=== PATIENT | female | born 1940 | race American Indian/Alaskan Native ===

== ENCOUNTER 2018-08-21 10:17 | Outpatient (CLI) | payer MEDICARE, OTHER ==
[2018-08-21 11:01] LABS: Hematocrit 41.6 % (30.3-42.9); Hemoglobin 13.7 gm/dl (10.1-14.3); Mean Corpuscular HGB Conc 33 % (30-34); Mean Corpuscular Volume 93 fl (79-97); Platelet Count 130 K/mm3 (140-440); Red Blood Count 4.48 M/mm3 (3.65-5.03)
[2018-08-21 11:24] LABS: Albumin 4.1 g/dL (3.9-5); Calcium 9.5 mg/dL (8.4-10.2)
[2018-08-21 12:22] LABS: Eosinophils % (Manual) 0 % (0.0-4.3); Total Cells Counted 100
[2018-08-21 12:23] LABS: Anisocytosis 1+; Poikilocytosis 1+
[2018-08-21 12:24] LABS: Ovalocytes Few; Platelet Estimate Consistent w Auto; Tear Drop Cells Rare
[2018-08-21 12:54] LABS: Creatinine,Urine 421.3 mg/dL (0.1-20.0); Protein/Creatinine Ratio,Urine 0.08
== END 2018-08-21 10:18 | disposition home or self-care (01) ==
LOC: LAB 10:17
PROVIDERS: ATTEND Internal Medicine
DX: E78.5 Hyperlipidemia, unspecified (principal); E03.9 Hypothyroidism, unspecified; I10 Essential (primary) hypertension; Z94.0 Kidney transplant status
CPT/HCPCS: 36415; 80053; 80197; 82570; 84156; 85007; 85025

== ENCOUNTER 2018-09-23 12:05 | Outpatient (CLI) | payer MEDICARE ==
[2018-09-23 12:46] LABS: Basophils % (Auto) 0.5 % (0.0-1.8); Eosinophils % (Auto) 0.8 % (0.0-4.3); Hematocrit 39.8 % (30.3-42.9); Lymphocytes # (Auto) 0.9 K/mm3 (1.2-5.4); Lymphocytes % (Auto) 23.3 % (13.4-35.0); Mean Corpuscular HGB Conc 33 % (30-34); Mean Corpuscular Volume 93 fl (79-97); Monocytes # (Auto) 0.6 K/mm3 (0.0-0.8); Monocytes % (Auto) 15.3 % (0.0-7.3); Platelet Count 153 K/mm3 (140-440); Red Blood Count 4.28 M/mm3 (3.65-5.03); Red Cell Distribution Width 15.3 % (13.2-15.2)
[2018-09-23 13:03] LABS: Protein/Creatinine Ratio,Urine 0.14
[2018-09-23 13:04] LABS: Albumin 3.8 g/dL (3.9-5); Calcium 9.8 mg/dL (8.4-10.2)
== END 2018-09-23 12:06 | disposition home or self-care (01) ==
LOC: LAB 12:05
PROVIDERS: ATTEND Internal Medicine
DX: E03.9 Hypothyroidism, unspecified (principal); E78.5 Hyperlipidemia, unspecified; I10 Essential (primary) hypertension; Z94.0 Kidney transplant status
CPT/HCPCS: 36415; 80053; 82570; 84156; 85025

== ENCOUNTER 2018-12-11 12:02 | Outpatient (CLI) | payer MEDICARE, OTHER ==
--- NOTE | 2018-12-11 13:18 | XRay Report ---
LEFT RIBS HISTORY: Fall and left chest pain. COMPARISON: None. TECHNIQUE: 2 views of the left ribs were obtained. FINDINGS: Bones: Multiple displaced mid to lower left rib fractures with no callus. Joint spaces: Maintained. Soft tissues: No significant abnormality. Additional findings: The lungs are normally expanded. No pneumothorax. IMPRESSION: Multiple acute traumatic displaced mid to lower left rib fractures. No pneumothorax. Signer Name: Tino Ballard MD Signed: 12/11/2018 1:14 PM Workstation Name: [id number]
--- NOTE | 2018-12-11 13:26 | XRay Report ---
LEFT HIP HISTORY: Fall and left hip pain. COMPARISON: None. TECHNIQUE: 3 views of the left hip obtained. FINDINGS: Bones: No definite hip fracture or dislocation. Moderate osteopenia, overlying stool and skin folds limit the sensitivity for detecting and hip fractures. Joint spaces: Maintained. Soft tissues: No significant abnormality. IMPRESSION: Negative study. However, recommend CT pelvis there is clinical suspicion of fracture. Signer Name: Tino Ballard MD Signed: 12/11/2018 1:22 PM Workstation Name: [id number]
== END 2018-12-11 12:03 | disposition home or self-care (01) ==
LOC: XRAY 12:02
PROVIDERS: ATTEND Internal Medicine
DX: S22.32XA Fracture of one rib, left side, initial encounter for closed fracture (principal); M85.88 Other specified disorders of bone density and structure, other site; R29.6 Repeated falls; X58.XXXA Exposure to other specified factors, initial encounter; Y93.89 Activity, other specified; Y92.89 Other specified places as the place of occurrence of the external cause; Y99.8 Other external cause status

== ENCOUNTER 2018-12-12 13:34 | Emergency (ER) | payer MEDICARE ==
--- NOTE | 2018-12-12 15:35 | Emergency Department Report ---
<JOCE GILLETTE - Last Filed: 12/12/18 17:23> ED Fall HPI - General Chief Complaint: Medical Clearance Stated Complaint: BROKEN RIBS/PAIN Time Seen by Provider: 12/12/18 15:20 Source: patient, family Mode of arrival: Wheelchair - History of Present Illness Initial Comments: 78-year-old Afro[place] female past medical history of kidney transplant, currently under the care of Dr. Cali presents to emergency department for further evaluation of a fall injury which was sustained on Sunday. Sunday she had a trip and fall landing on her ribs, causing pain to the left hip and ribs. Her primary care provider, Dr. Cali did order some imaging studies on yesterday which showed a fractured rib and multiple sites and a normal left hip. Since the fall. She is having some ambulating difficulties and issues with getting up and down and the caregiver's report of a difficult. She is having an looking for assistance with rehabilitation. She reports no chest pain or hemoptysis, no shortness of breath, no presyncope, no nausea or vomiting. No diarrhea or constipation MD Complaint: fall -: Gradual Place Fall Occurred: home Loss of Consciousness: none Prolonged Down Time?: no Symptoms Prior to Fall: none Severity: mild, moderate Quality: dull, aching Context: tripped/slipped Associated Symptoms: denies: neck pain, numbness, weakness, abdominal pain, hematuria, lightheaded, vertigo, confusion - Related Data Previous Rx's Medication Instructions Recorded Last Taken Type HYDROcodone/APAP 5-325 [[place] 1 each PO Q6HR PRN #15 tablet 12/12/18 Unknown Rx 5/325] Allergies Allergy/AdvReac Type Severity Reaction Status Date / Time No Known Allergies Allergy Verified 12/12/18 16:34 ED Past Medical Hx - Past Medical History Previous Medical History?: No Additional medical history: kidney transplant - Social History Smoking Status: Never Smoker - Medications Home Medications: Home Medications Medication Instructions Recorded Confirmed Last Taken Type HYDROcodone/APAP 5-325 [[place] 1 each PO Q6HR PRN #15 tablet 12/12/18 Unknown Rx 5/325] ED Physical Exam - General Limitations: No Limitations ED Medical Decision Making - Lab Data Result diagrams: 12/12/18 16:04 12/12/18 16:04 - Radiology Data Radiology results: report reviewed Referring Physician: JOCE GILLETTE Patient Name: DAYAN ECKERT Date of : 1940 Sex: Female Report Date: 2018-12-12 Report Status: Finalized [facility] [address] [place] [address] Cat Scan Report Signed Patient: DAYAN ECKERT MR#: [id number] : 1940 Acct:[id number] Age/Sex: 78 / F ADM Date: 12/12/18 Loc: ED Attending Dr: Ordering Physician: RUSS MARTIN Date of Service: 12/12/18 Procedure(s): CT chest wo con Accession Number(s): [id number] cc: RUSS MARTIN CT CHEST WITHOUT CONTRAST INDICATION / CLINICAL INFORMATION: fall with rib fractures. rib pain. TECHNIQUE: Axial CT images were obtained through the chest without contrast. All CT scans at this location are performed using CT dose reduction for ALARA by means of automated exposure control. COMPARISON: Chest radiograph 12/12/2018, rib radiographs 12/11/2018 FINDINGS: HEART: Normal heart size. Small pericardial effusion. THORACIC AORTA: Ectatic and tortuous but without clear aneurysmal dilatation. MEDIASTINUM and JAZLYN: No significant abnormality. LUNGS: Probably chronic scarring is seen at both lung bases. A subcentimeter, probably calcified nodule is seen at the right lung base. Evaluation for small nodules is limited by respiratory motion artifact. No large area of parenchymal consolidation. No pulmonary mass. PLEURA: No pleural effusion. No pneumothorax. UPPER ABDOMEN: Unremarkable by noncontrast technique. SKELETAL SYSTEM: There are acute, mildly displaced fractures of the left fifth through eighth ribs anterolaterally and mildly displaced fractures of the left ninth and 10th ribs posteriorly. IMPRESSION: 1. Multiple left-sided rib fractures, as described. No associated pulmonary contusion. 2. Limited evaluation of the lung parenchyma due to respiratory motion artifact. There is chronic scarring at the lung bases. Signer Name: Rambo Garsia MD Signed: 12/12/2018 5:11 PM Workstation Name: [id number] Transcribed By: LETY Dictated By: Rambo Garsia MD Electronically Authenticated By: Rambo Garsia MD Signed Date/Time: 12/12/18 1711 ED Disposition Clinical Impression: Multiple rib fractures Disposition: DC-01 TO HOME OR SELFCARE Condition: Stable Instructions: Rib Fracture (ED) Additional Instructions: Take the medication as prescribed. Follow-up with your doctor or with the doctor/clinic provided. Return if symptoms worsen as indicated by your disch arge instructions. Prescriptions: HYDROcodone/APAP 5-325 [[place] 5/325] 1 each PO Q6HR PRN #15 tablet PRN Reason: Pain Referrals: PRERNA GIMENEZ MD [Primary Care Provider] - 3-5 Days your, primary care doctor [Other] - 3-5 Days <FAZAL CONTRERAS - Last Filed: 12/12/18 20:25> ED Review of Systems ROS: Stated complaint: BROKEN RIBS/PAIN Other details as noted in HPI ED Physical Exam - Other Other exam information: Gen.: No acute distress Head: Atraumatic Eyes: Normal appearance ENT: Moist mucous membranes Neck: Normal appearance, no posterior midline tenderness, no meningismus Chest: Clear to auscultation bilaterally, tenderness to left anterior posterior ribs, no crepitus Cardiovascular: Regular rate and rhythm, systolic murmur Abdomen: Normal appearance, soft, nontender, no rebound or guarding, normal bowel sounds Back: Normal appearance, nontender Extremity: Full range of motion, normal appearance Neuro: Alert, clear speech, no focal motor or sensory deficit Psychiatric: Appropriate Skin: No rash ED Course Vital Signs 12/12/18 12/12/18 12/12/18 13:47 14:45 14:50 Temperature 98.3 F 97.9 F Pulse Rate 69 60 Respiratory 14 18 Rate Blood Pressure Blood Pressure 106/67 105/64 [Right] O2 Sat by Pulse 99 99 98 Oximetry 12/12/18 12/12/18 12/12/18 15:04 15:16 15:30 Temperature Pulse Rate 65 52 L 54 L Respiratory 24 18 22 Rate Blood Pressure 105/64 105/64 105/64 Blood Pressure [Right] O2 Sat by Pulse 97 98 Oximetry 12/12/18 12/12/18 12/12/18 15:54 16:00 16:16 Temperature Pulse Rate 64 51 L 70 Respiratory 20 21 29 H Rate Blood Pressure 105/64 105/64 105/64 Blood Pressure [Right] O2 Sat by Pulse 95 98 93 Oximetry 12/12/18 12/12/18 12/12/18 16:32 16:46 17:00 Temperature Pulse Rate 50 L 47 L 62 Respiratory 22 20 32 H Rate Blood Pressure 119/101 119/101 105/64 Blood Pressure [Right] O2 Sat by Pulse 88 100 91 Oximetry 12/12/18 12/12/18 12/12/18 17:16 17:30 17:46 Temperature Pulse Rate 64 54 L 49 L Respiratory 28 H 22 22 Rate Blood Pressure 134/62 121/72 121/72 Blood Pressure [Right] O2 Sat by Pulse 96 96 100 Oximetry 12/12/18 12/12/18 12/12/18 18:00 18:16 18:21 Temperature Pulse Rate 48 L 49 L 50 L Respiratory 18 18 21 Rate Blood Pressure 116/65 116/65 Blood Pressure 116/65 [Right] O2 Sat by Pulse 99 100 97 Oximetry 12/12/18 12/12/18 12/12/18 18:30 18:46 19:00 Temperature Pulse Rate 71 68 51 L Respiratory 23 22 19 Rate Blood Pressure 85/60 85/60 92/59 Blood Pressure [Right] O2 Sat by Pulse 97 88 99 Oximetry 12/12/18 12/12/18 12/12/18 19:16 19:30 19:46 Temperature Pulse Rate 60 61 77 Respiratory 19 24 21 Rate Blood Pressure 92/59 100/57 100/57 Blood Pressure [Right] O2 Sat by Pulse 97 99 97 Oximetry 12/12/18 12/12/18 20:00 20:16 Temperature Pulse Rate 81 72 Respiratory 20 20 Rate Blood Pressure 99/56 99/56 Blood Pressure [Right] O2 Sat by Pulse 98 98 Oximetry - Reevaluation(s) Reevaluation #1: 12/12/18 18:28 Patient was brought to the hospital by her sister who is also elderly. Sister left the department and was warned by nurse taking care of the patient that if there is not a medical reason to make it was likely that patient will be sent back home. Contact number provided for sister has a busy signal when attempted by the nurse. At this time there is no medical reason to admit the patient. Plan was to discharge patient home with instruction to follow up with primary care doctor for arrangement for rehabilitation or [facility] care. Case was d/w her neprhology group that recommended for pt to come to ED. At this time patient will will remain and department with plan for case management consult in the morning since patient's sister has left her here and cannot be contacted with number provided. pt is in no acute distress at this time. - Consultations Consultation #1: 12/12/18 18:[address] Diogo george. agree no indication to medically admit. I will send pt home. She will need to arrange for outpatient arrangemetns Consultation #2: 12/12/18 20:[address] Segura pulmonologists and multiple rib fractures alone and not indication to admit at this time since no signs of hypoxia or pulmonary contusion ED Medical Decision Making - Lab Data Result diagrams: 12/12/18 16:04 12/12/18 16:04 Lab Results 12/12/18 12/12/18 12/12/18 Range/Units 15:55 16:04 16:04 WBC 3.8 L (4.5-11.0) K/mm3 RBC 4.67 (3.65-5.03) M/mm3 Hgb 14.4 H (10.1-14.3) gm/dl Hct 43.2 H (30.3-42.9) % MCV 93 (79-97) fl MCH 31 (28-32) pg MCHC 33 (30-34) % RDW 14.3 (13.2-15.2) % Plt Count 147 D (140-440) K/mm3 [place] % (Auto) Casting Machine Adjuster Add Manual Diff Complete Total Counted 100 Seg Neuts % (Manual) 61.0 (40.0-70.0) % Band Neutrophils % 0 % Lymphocytes % (Manual) 15.0 (13.4-35.0) % Reactive Lymphs % (Man) 0 % Monocytes % (Manual) 23.0 H (0.0-7.3) % Eosinophils % (Manual) 1.0 (0.0-4.3) % Basophils % (Manual) 0 (0.0-1.8) % Metamyelocytes % 0 % Myelocytes % 0 % Promyelocytes % 0 % Blast Cells % 0 % Nucleated RBC % Not Reportable Seg Neutrophils # Man 2.3 (1.8-7.7) K/mm3 Band Neutrophils # 0.0 K/mm3 Lymphocytes # (Manual) 0.6 L (1.2-5.4) K/mm3 Abs React Lymphs (Man) 0.0 K/mm3 Monocytes # (Manual) 0.9 H (0.0-0.8) K/mm3 Eosinophils # (Manual) 0.0 (0.0-0.4) K/mm3 Basophils # (Manual) 0.0 (0.0-0.1) K/mm3 Metamyelocytes # 0.0 K/mm3 Myelocytes # 0.0 K/mm3 Promyelocytes # 0.0 K/mm3 Blast Cells # 0.0 K/mm3 WBC Morphology Not Reportable Hypersegmented Neuts Not Reportable Hyposegmented Neuts Not Reportable Hypogranular Neuts Not Reportable Smudge Cells Not Reportable Toxic Granulation Not Reportable Toxic Vacuolation Not Reportable Dohle Bodies Not Reportable Pelger-Huet Anomaly Not Reportable Eric Rods Not Reportable Platelet Estimate Consistent w auto Clumped Platelets Not Reportable Plt Clumps, EDTA Not Reportable Large Platelets 1+ Giant Platelets Not Reportable Platelet Satelliting Not Reportable Plt Morphology Comment Not Reportable RBC Morphology Not Reportable Dimorphic RBCs Not Reportable Polychromasia Not Reportable Hypochromasia Not Reportable Poikilocytosis Not Reportable Anisocytosis 1+ Microcytosis Not Reportable Macrocytosis Not Reportable Spherocytes Not Reportable Pappenheimer Bodies Not Reportable Sickle Cells Not Reportable Target Cells Not Reportable Tear Drop Cells Not Reportable Ovalocytes 1+ Helmet Cells Not Reportable [place] Bodies Not Reportable [place] Rings Not Reportable [place] Cells Not Reportable Bite Cells Not Reportable Crenated Cell Not Reportable Elliptocytes Not Reportable Acanthocytes (Spur) Not Reportable Rouleaux Not Reportable Hemoglobin C Crystals Not Reportable Schistocytes Not Reportable Malaria parasites Not Reportable Jordin Bodies Not Reportable Hem Pathologist Commnt No Sodium 136 L (137-145) mmol/L Potassium 4.5 (3.6-5.0) mmol/L Chloride 101.7 (98-107) mmol/L Carbon Dioxide 18 L (22-30) mmol/L Anion Gap 21 mmol/L BUN 25 H (7-17) mg/dL Creatinine 1.1 (0.7-1.2) mg/dL Estimated GFR 58 ml/min BUN/Creatinine Ratio 23 % Glucose 72 (65-100) mg/dL Calcium 9.6 (8.4-10.2) mg/dL Total Bilirubin 0.50 (0.1-1.2) mg/dL AST 22 (5-40) units/L ALT 13 (7-56) units/L Alkaline Phosphatase 56 (35-129) units/L Total Protein 6.8 (6.3-8.2) g/dL Albumin 3.9 (3.9-5) g/dL Albumin/Globulin Ratio 1.3 % Urine Color Yellow (Yellow) Urine Turbidity Clear (Clear) Urine pH 5.0 (5.0-7.0) Ur Specific [place] 1.023 (1.003-1.030) Urine Protein <15 mg/dl (Negative) mg/dL Urine Glucose (UA) Neg (Negative) mg/dL Urine Ketones Tr (Negative) mg/dL Urine Blood Neg (Negative) Urine Nitrite Neg (Negative) Urine Bilirubin Neg (Negative) Urine Urobilinogen < 2.0 (<2.0) mg/dL Ur Leukocyte Esterase Neg (Negative) Urine WBC (Auto) < 1.0 (0.0-6.0) /HPF Urine RBC (Auto) 1.0 (0.0-6.0) /HPF U Epithel Cells (Auto) < 1.0 (0-13.0) /HPF Urine Mucus Few /HPF - Medical Decision Making plan to d/c home since no med reason to admit pt abandoned in department by sister (hopefully she will call or return) case management consult ordered for am (not available at this time) She did come back to the ED at this time 8 PM. I informed her that no medical reason to admit at this time and patient has multiple rib fractures without pulmonary injury. Patient will be discharged home with pain medication since she is not currently on any pain medication. Patient is continued to decline pain medication in the department. Patient encouraged to follow up with PMD for rehabilitation placement pt also provided an incentive spirometer A copy of the CAT scan report was provided per sister request - Differential Diagnosis fractures, pulmonary contusion, intractable pain Critical Care Time: No Critical care attestation.: If time is entered above; I have spent that time in minutes in the direct care of this critically ill patient, excluding procedure time. ED Disposition Is pt being admited?: No Does the pt Need Aspirin: No Time of Disposition: 19:01
[2018-12-12 16:07] LABS: Bilirubin,Urine NEG (Negative); Blood,Urine NEG (Negative); Color,Urine Yellow (Yellow); Mucus,Urine FEW /HPF; Protein,Urine <15 mg/dL mg/dL (Negative); Urobilinogen,Urine < 2.0 mg/dL (<2.0); WBC,Urine < 1.0 /HPF (0.0-6.0)
--- NOTE | 2018-12-12 16:14 | XRay Report ---
CHEST 1 VIEW INDICATION: rib pain. COMPARISON: None FINDINGS: Support devices: None. Heart: Within normal limits. Lungs/Pleura: No acute air space or interstitial disease. Additional findings: At least 2 left posterior lateral rib fractures are identified at approximate le vels 9 and 10. IMPRESSION: Left rib fractures. Lungs clear. Signer Name: Naveen Oropeza Jr, MD Signed: 12/12/2018 4:10 PM Workstation Name: [id number]
[2018-12-12 16:30] LABS: Hematocrit 43.2 % (30.3-42.9); Hemoglobin 14.4 gm/dl (10.1-14.3); Mean Corpuscular HGB Conc 33 % (30-34); Mean Corpuscular Volume 93 fl (79-97); Platelet Count 147 K/mm3 (140-440); Red Blood Count 4.67 M/mm3 (3.65-5.03); Red Cell Distribution Width 14.3 % (13.2-15.2)
[2018-12-12 16:51] LABS: Albumin 3.9 g/dL (3.9-5); Calcium 9.6 mg/dL (8.4-10.2)
--- NOTE | 2018-12-12 17:15 | Cat Scan Report ---
CT CHEST WITHOUT CONTRAST INDICATION / CLINICAL INFORMATION: fall with rib fractures. rib pain. TECHNIQUE: Axial CT images were obtained through the chest without contrast. All CT scans at this location are p erformed using CT dose reduction for ALARA by means of automated exposure control. COMPARISON: Chest radiograph 12/12/2018, rib radiographs 12/11/2018 FINDINGS: HEART: Normal heart size. Small pericardial effusion. THORACIC AORTA: Ectatic and tortuous but without clear aneurysmal dilatation. MEDIASTINUM and JAZLYN: No significant abnormality. LUNGS: Probably chronic scarring is seen at both lung bases. A subcentimeter, probably calcified nodu le is seen at the right lung base. Evaluation for small nodules is limited by respiratory motion radha fact. No large area of parenchymal consolidation. No pulmonary mass. PLEURA: No pleural effusion. No pneumothorax. UPPER ABDOMEN: Unremarkable by noncontrast technique. SKELETAL SYSTEM: There are acute, mildly displaced fractures of the left fifth through eighth ribs an terolaterally and mildly displaced fractures of the left ninth and 10th ribs posteriorly. IMPRESSION: 1. Multiple left-sided rib fractures, as described. No associated pulmonary contusion. 2. Limited evaluation of the lung parenchyma due to respiratory motion artifact. There is chronic sca rring at the lung bases. Signer Name: Rambo Garsia MD Signed: 12/12/2018 5:11 PM Workstation Name: [id number]
[2018-12-12 19:08] LABS: Basophils % (Manual) 0 % (0.0-1.8); Total Cells Counted 100
[2018-12-12 19:09] LABS: Anisocytosis 1+; Large Platelets 1+; Ovalocytes 1+; Platelet Estimate Consistent w Auto
[2018-12-12 20:17] VITALS: BP 99/56
== END 2018-12-12 22:52 | disposition home or self-care (01) ==
LOC: ED 13:34
DX: S22.42XA Multiple fractures of ribs, left side, initial encounter for closed fracture (principal); W01.0XXA Fall on same level from slipping, tripping and stumbling without subsequent striking against object, initial encounter; Y93.89 Activity, other specified; Y92.019 Unspecified place in single-family (private) house as the place of occurrence of the external cause; Y99.8 Other external cause status
CPT/HCPCS: 36415; 71045; 71250; 80053; 81001; 85007; 85025; 93005; 93010

== ENCOUNTER 2019-04-29 11:20 | Outpatient (CLI) | payer MEDICARE ==
[2019-04-29 12:18] LABS: Hematocrit 42.4 % (30.3-42.9); Hemoglobin 13.7 gm/dl (10.1-14.3); Mean Corpuscular HGB Conc 32 % (30-34); Mean Corpuscular Volume 93 fl (79-97); Platelet Count 145 K/mm3 (140-440); Red Blood Count 4.56 M/mm3 (3.65-5.03); Red Cell Distribution Width 14.3 % (13.2-15.2)
[2019-04-29 12:22] LABS: Mucus,Urine FEW /HPF
[2019-04-29 12:28] LABS: Bilirubin,Urine Negative (Negative); Blood,Urine Negative (Negative); Color,Urine Yellow (Yellow)
[2019-04-29 12:38] LABS: Albumin 3.9 g/dL (3.9-5); Calcium 9.8 mg/dL (8.4-10.2)
[2019-04-29 13:18] LABS: Platelet Estimate Consistent w Auto; RBC Morphology Normal; Total Cells Counted 100
== END 2019-04-29 11:21 | disposition home or self-care (01) ==
LOC: LAB 11:20
PROVIDERS: ATTEND Internal Medicine Nephrology
DX: E03.9 Hypothyroidism, unspecified (principal); E78.5 Hyperlipidemia, unspecified; I10 Essential (primary) hypertension; W13.3XXA Fall through floor, initial encounter; Y93.89 Activity, other specified; Y99.8 Other external cause status; Z94.0 Kidney transplant status
CPT/HCPCS: 36415; 80048; 80197; 81001; 82040; 84100; 85007; 85025

== ENCOUNTER 2019-07-31 10:01 | Outpatient (CLI) | payer MEDICARE ==
[2019-07-31 11:15] LABS: Basophils % (Auto) 0.3 % (0.0-1.8); Eosinophils % (Auto) 0.6 % (0.0-4.3); Hematocrit 41.3 % (30.3-42.9); Hemoglobin 13.4 gm/dl (10.1-14.3); Lymphocytes # (Auto) 0.9 K/mm3 (1.2-5.4); Mean Corpuscular HGB Conc 32 % (30-34); Mean Corpuscular Volume 93 fl (79-97); Monocytes # (Auto) 0.7 K/mm3 (0.0-0.8); Monocytes % (Auto) 15.6 % (0.0-7.3); Platelet Count 134 K/mm3 (140-440); Red Blood Count 4.43 M/mm3 (3.65-5.03); Red Cell Distribution Width 14.3 % (13.2-15.2)
[2019-07-31 11:16] LABS: Bilirubin,Urine NEG (Negative); Blood,Urine SM (Negative); Color,Urine Yellow (Yellow); Mucus,Urine FEW /HPF; Protein,Urine <15 mg/dL mg/dL (Negative); Urobilinogen,Urine < 2.0 mg/dL (<2.0)
[2019-07-31 11:38] LABS: Calcium 9.5 mg/dL (8.4-10.2)
[2019-07-31 12:36] LABS: Chol/HDL Ratio 1.85 %
== END 2019-07-31 10:02 | disposition home or self-care (01) ==
LOC: LAB 10:01
PROVIDERS: ATTEND Internal Medicine
DX: E03.9 Hypothyroidism, unspecified (principal); E78.5 Hyperlipidemia, unspecified; I10 Essential (primary) hypertension; W13.3XXA Fall through floor, initial encounter; Z94.0 Kidney transplant status
CPT/HCPCS: 36415; 80053; 80061; 80197; 81001; 84100; 85025

== ENCOUNTER 2019-11-13 09:17 | Outpatient (CLI) | payer MEDICARE ==
[2019-11-13 10:12] LABS: Hematocrit 40.4 % (30.3-42.9); Hemoglobin 13.4 gm/dl (10.1-14.3); Mean Corpuscular HGB Conc 33 % (30-34); Mean Corpuscular Volume 93 fl (79-97); Platelet Count 116 K/mm3 (140-440); Red Blood Count 4.34 M/mm3 (3.65-5.03); Red Cell Distribution Width 14.8 % (13.2-15.2)
[2019-11-13 10:34] LABS: Alanine Aminotransferase 38 units/L (7-56); BUN/Creatinine Ratio 23; Blood Urea Nitrogen 21 mg/dL (7-17); Hemolysis Index 8
[2019-11-13 11:46] LABS: Creatinine,Urine 105.7 mg/dL (0.1-20.0); Protein/Creatinine Ratio,Urine 0.11
== END 2019-11-13 09:18 | disposition home or self-care (01) ==
LOC: LAB 09:17
PROVIDERS: ATTEND Internal Medicine
DX: Z94.0 Kidney transplant status (principal)
CPT/HCPCS: 36415; 80053; 80197; 82570; 84156; 85027

== ENCOUNTER 2020-03-24 10:26 | Outpatient (CLI) | payer MEDICARE ==
[2020-03-24 11:20] LABS: Hematocrit 44.5 % (30.3-42.9); Hemoglobin 14.5 gm/dl (10.1-14.3); Mean Corpuscular Volume 94 fl (79-97); Red Blood Count 4.76 M/mm3 (3.65-5.03)
[2020-03-24 11:21] LABS: Mean Corpuscular HGB Conc 33 % (30-34); Platelet Count 144 K/mm3 (140-440); Red Cell Distribution Width 14.3 % (13.2-15.2)
[2020-03-24 11:39] LABS: Albumin 4.2 g/dL (3.9-5); Calcium 9.8 mg/dL (8.4-10.2)
[2020-03-24 12:08] LABS: Platelet Estimate Consistent w Auto; RBC Morphology Normal; Total Cells Counted 100
[2020-03-24 13:44] LABS: Creatinine,Urine 198.7 mg/dL (0.1-20.0); Protein/Creatinine Ratio,Urine 0.11
== END 2020-03-24 10:27 | disposition home or self-care (01) ==
LOC: LAB 10:26
PROVIDERS: ATTEND Internal Medicine
DX: Z94.0 Kidney transplant status (principal)
CPT/HCPCS: 36415; 80053; 80197; 82570; 84156; 85007; 85025

== ENCOUNTER 2020-04-12 10:59 | Inpatient (IN) | payer MEDICARE ==
--- NOTE | 2020-04-12 11:36 | Event Note ---
ED Screening Note Date of service: 04/12/20 Time: 11:23 ED Screening Note: 79 yo renal transplant pt was brought to ED by family member who reports that patient started c/o left side pain today and has had decrease appetite since past Sunday. She reports intermittent SOB. She denies fever, cough, vomiting, diarrhea or constipation or urinary odor or hematuria. pmhx: Dementia; Renal transplant (17yrs ago and again in 2010) Supervisor Operations: Dr Mccarthy Pt noted to be hypothermic in triage. She appears ill. Will initiate sepsis protocol This initial assessment/diagnostic orders/clinical plan/treatment(s) is/are subject to change based on patients health status, clinical progression and re- assessment by fellow clinical providers in the ED. Further treatment and workup at subsequent clinical providers discretion. Patient/guardian urged not to elope from the ED as their condition may be serious if not clinically assessed and managed. Initial orders include: Sepsis order set
--- NOTE | 2020-04-12 12:33 | Emergency Department Report ---
<GURVINDER FOSTERKeisha - Last Filed: 04/12/20 18:35> ED Abdominal Pain HPI - General Chief Complaint: Abdominal Pain Stated Complaint: UNABLE TO EAT/LEFT SIDE PAIN Time Seen by Provider: 04/12/20 11:22 - Related Data Previous Rx's Medication Instructions Recorded Last Taken Type HYDROcodone/APAP 5-325 [[place] 1 each PO Q6HR PRN #15 tablet 12/12/18 Unknown Rx 5/325] Allergies Allergy/AdvReac Type Severity Reaction Status Date / Time No Known Allergies Allergy Verified 12/12/18 16:34 ED Past Medical Hx - Medications Home Medications: Home Medications Medication Instructions Recorded Confirmed Last Taken Type HYDROcodone/APAP 5-325 [[place] 1 each PO Q6HR PRN #15 tablet 12/12/18 Unknown Rx 5/325] ED Course - Consultations Consultation #1: 04/12/20 17:27 Spoke w/ Dr Bowne, miter saw operator. Ok w/ hyperkalemia protocol. Also recommends 500 cc lactated ringers. Will see pt. ED Medical Decision Making - Lab Data Result diagrams: 04/12/20 13:54 04/12/20 Unknown - Medical Decision Making Patient signed out to me by Dr. Talavera to follow-up on patient's chemistry. Potassium resulted at 5.8. I spoke with the biological lab technician who states there was no hemolysis detected. Albuterol, insulin, D50, calcium, Kayexalate ordered. I spoke with Dr. Bowen, nephrology, who also recommends a bolus of LR. She will co nsult on the patient. Patient will be admitted to Dr. Pro. ED Disposition Clinical Impression: Right lower lobe pneumonia, Failure to thrive, Hyperkalemia, Suspected 2019 novel coronavirus infection Acute renal failure Qualifiers: Acute renal failure type: with acute tubular necrosis Qualified Code(s): N17.0 - Acute kidney failure with tubular necrosis Disposition: -09 OP ADMIT IP TO THIS HOSP Is pt being admited?: Yes Condition: Stable <ELSA TALAVERA - Last Filed: 04/13/20 10:23> ED Abdominal Pain HPI - General Source: family Mode of arrival: Wheelchair Limitations: No Limitations - History of Present Illness Initial Comments: Patient is 79 years old female with history of dementia and history of kidney transplant x2. Patient brought to the emergency room accompanied by her sister. Sister stated that patient started complaining of left flank pain this morning. Patient is not communicating well so most of the history is from patient sister. Sister also stated that she has not been eating or drinking well for the last few days. Sister stated that she did not notice any cough or shortness of breath. MD Complaint: flank pain -: This morning Location: L flank ED Review of Systems ROS: Stated complaint: UNABLE TO EAT/LEFT SIDE PAIN Other details as noted in HPI Comment: All other systems reviewed and negative Constitutional: denies: chills, fever Respiratory: denies: cough, shortness of breath, SOB with exertion Cardiovascular: denies: chest pain, palpitations Gastrointestinal: abdominal pain. denies: nausea, vomiting, diarrhea, constipation, hematemesis Musculoskeletal: denies: back pain Neurological: denies: headache, weakness, numbness, paresthesias, confusion ED Past Medical Hx - Past Medical History Previous Medical History?: Yes Additional medical history: kidney transplant - Surgical History Past Surgical History?: Yes Additional Surgical History: kidney transplant x 2 - Social History Smoking Status: Never Smoker ED Physical Exam - General Limitations: No Limitations General appearance: alert, in no apparent distress - Head Head exam: Present: atraumatic, normocephalic, normal inspection - Eye Eye exam: Present: normal appearance, PERRL - ENT ENT exam: Present: normal exam, normal orophraynx, mucous membranes moist - Neck Neck exam: Present: normal inspection, full ROM. Absent: tenderness, meningismus, lymphadenopathy, thyromegaly - Respiratory Respiratory exam: Present: normal lung sounds bilaterally - Cardiovascular Cardiovascular Exam: Present: regular rate, normal rhythm, normal heart sounds - GI/Abdominal GI/Abdominal exam: Present: soft, normal bowel sounds. Absent: distended, tenderness, guarding, rebound, rigid, organomegaly, mass, bruit, pulsatile mass, hernia - Extremities Exam Extremities exam: Present: normal capillary refill. Absent: tenderness - Back Exam Back exam: Present: normal inspection, full ROM. Absent: CVA tenderness (R), CVA tenderness (L) - Neurological Exam Neurological exam: Present: alert, CN II-XII intact - Skin Skin exam: Present: warm, dry, intact ED Course Vital Signs 04/12/20 04/12/20 04/12/20 11:18 14:02 14:15 Temperature Pulse Rate 79 94 H Respiratory 16 28 H 26 H Rate Blood Pressure 106/71 Blood Pressure 142/70 [Left] O2 Sat by Pulse 94 Oximetry 04/12/20 04/12/20 04/12/20 14:31 14:45 15:01 Temperature Pulse Rate 94 H 96 H 87 Respiratory 27 H 27 H 27 H Rate Blood Pressure 106/71 106/71 106/71 Blood Pressure [Left] O2 Sat by Pulse 97 94 100 Oximetry 04/12/20 04/12/20 04/12/20 15:15 15:31 15:45 Temperature Pulse Rate 103 H 94 H 89 Respiratory 27 H 26 H 27 H Rate Blood Pressure 106/71 129/75 129/75 Blood Pressure [Left] O2 Sat by Pulse 95 90 96 Oximetry 04/12/20 04/12/20 04/12/20 16:01 16:15 16:31 Temperature Pulse Rate 73 85 71 Respiratory 25 H 27 H 22 Rate Blood Pressure 129/75 117/79 117/79 Blood Pressure [Left] O2 Sat by Pulse 97 97 98 Oximetry 04/12/20 04/12/20 04/12/20 16:36 16:45 17:01 Temperature 100.8 F H Pulse Rate 72 72 Respiratory 22 21 Rate Blood Pressure 117/79 117/79 Blood Pressure [Left] O2 Sat by Pulse 98 96 Oximetry 04/12/20 04/12/20 04/12/20 17:15 17:31 17:45 Temperature Pulse Rate 75 85 97 H Respiratory 23 23 21 Rate Blood Pressure 112/74 112/74 129/75 Blood Pressure [Left] O2 Sat by Pulse 95 97 Oximetry 04/12/20 04/12/20 04/12/20 18:01 18:15 18:31 Temperature Pulse Rate 105 H 111 H 105 H Respiratory 20 22 25 H Rate Blood Pressure 129/75 112/74 114/67 Blood Pressure [Left] O2 Sat by Pulse 98 96 96 Oximetry 04/12/20 04/12/20 04/12/20 18:45 19:01 19:15 Temperature Pulse Rate 87 91 H 88 Respiratory 22 21 21 Rate Blood Pressure 114/67 114/67 120/77 Blood Pressure [Left] O2 Sat by Pulse 98 97 95 Oximetry 04/12/20 04/12/20 04/12/20 19:30 19:45 20:01 Temperature Pulse Rate 96 H 75 59 L Respiratory 21 20 19 Rate Blood Pressure 112/74 112/74 112/74 Blood Pressure [Left] O2 Sat by Pulse 97 99 Oximetry 04/12/20 04/12/20 04/12/20 20:15 20:31 20:41 Temperature Pulse Rate 65 60 72 Respiratory 21 19 19 Rate Blood Pressure 112/74 137/72 137/72 Blood Pressure [Left] O2 Sat by Pulse 100 100 97 Oximetry 04/12/20 04/12/20 04/12/20 20:51 21:01 21:11 Temperature Pulse Rate 55 L 53 L 59 L Respiratory 21 17 19 Rate Blood Pressure 137/72 137/72 137/72 Blood Pressure [Left] O2 Sat by Pulse 98 98 98 Oximetry 04/12/20 04/12/20 04/12/20 21:15 21:21 21:31 Temperature 98.1 F Pulse Rate 62 56 L 57 L Respiratory 18 21 22 Rate Blood Pressure 148/82 148/82 Blood Pressure 137/72 [Left] O2 Sat by Pulse 99 97 94 Oximetry 04/12/20 04/12/20 21:41 21:51 Temperature Pulse Rate 52 L 51 L Respiratory 18 18 Rate Blood Pressure 148/82 120/77 Blood Pressure [Left] O2 Sat by Pulse 95 95 Oximetry ED Medical Decision Making - Lab Data Result diagrams: 04/13/20 05:20 04/13/20 05:20 - EKG Data -: EKG Interpreted by Al EKG shows normal: sinus rhythm Rate: tachycardia - EKG Data Interpretation: no acute changes - Radiology Data Radiology results: report reviewed - Medical Decision Making Patient is 79 years old female with history of dementia and history of kidney transplant x2. Patient brought to the emergency room accompanied by her sister. Sister stated that patient started complaining of left flank pain this morning. Patient is not communicating well so most of the history is from patient sister. Sister also stated that she has not been eating or drinking well for the last few days. Sister stated that she did not notice any cough or shortness of breath. CT abdomen and pelvis showed right lower lobe infiltrate concerning for pneumonia. Patient given Rocephin and Zithromax. I discussed the patient with Dr. Pro, he agreed to admit the patient to medical service for further management. Critical care attestation.: If time is entered above; I have spent that time in minutes in the direct care of this critically ill patient, excluding procedure time. ED Disposition Is pt being admited?: Yes
--- NOTE | 2020-04-12 12:38 | XRay Report ---
CHEST 1 VIEW 04/12/2020 11:31 AM INDICATION / CLINICAL INFORMATION: Left side pain. COMPARISON: 12/12/2018 FINDINGS: SUPPORT DEVICES: None. HEART / MEDIASTINUM: Stable. LUNGS / PLEURA: No significant pulmonary or pleural abnormality. No pneumothorax. ADDITIONAL FINDINGS: No significant additional findings. IMPRESSION: 1. No acute findings or significant interval change when compared 12/12/2018. Signer Name: Eulalio Lezama MD Signed: 04/12/2020 12:33 PM Workstation Name: [id number]
--- NOTE | 2020-04-12 13:36 | Cat Scan Report ---
CT ABDOMEN AND PELVIS WITHOUT IV CONTRAST INDICATION: ABDOMINAL PAIN. COMPARISON: None available. TECHNIQUE: All CT scans at this facility use dose modulation, automated exposure control, iterative reconstructi on or weight based dosing, when appropriate, to reduce radiation dose to as low as reasonably achieva ble. FINDINGS: Lung Bases: Mild groundglass opacities are seen within the included right lower lung. There are also atelectatic changes within the dependent lung bases. Skeletal System: No acute abnormality. ABDOMEN: Liver: No significant abnormality. Gallbladder: Not visualized. This may be surgically absent or contracted. Bile Ducts: No significant abnormality. Pancreas: No significant abnormality. Spleen: No significant abnormality. Adrenals: No significant abnormality. Right Kidney: Very small, likely nonfunctioning with dystrophic calcification in the posterior cortex . Left Kidney: There are small, likely nonfunctioning. Upper GI tract: No significant abnormality. Lymph Nodes: No significant adenopathy. Aorta: No significant abnormality. Additional Findings: No significant abnormality. PELVIS: Colon: No acute abnormality. Diverticulosis is noted. Urinary Bladder and Distal Ureters: No significant abnormality. Appendix: Not visualized. Lymph Nodes: No significant adenopathy. Additional Findings: Left lower quadrant transplant kidney is noted. No hydronephrosis is appreciated . IMPRESSION: 1. There is a posterior intra-abdominal fat. Accounting for this and lack of intravenous/oral contra st, no acute process is seen in the abdomen/pelvis. 2. Transplant kidney in the left lower quadrant appears unremarkable given noncontrast technique. 3. Groundglass opacities in the right lower lung are nonspecific but could be infectious in etiology. Signer Name: Paulino Desir MD Signed: 04/12/2020 1:32 PM Workstation Name: [id number]
[2020-04-12 14:38] LABS: Basophils % (Auto) 0.2 % (0.0-1.8); Hematocrit 50.9 % (30.3-42.9); Hemoglobin 17.2 gm/dl (10.1-14.3); Lymphocytes # (Auto) 0.2 K/mm3 (1.2-5.4); Lymphocytes % (Auto) 2.4 % (13.4-35.0); Mean Corpuscular HGB Conc 34 % (30-34); Mean Corpuscular Volume 92 fl (79-97); Monocytes # (Auto) 1.4 K/mm3 (0.0-0.8); Monocytes % (Auto) 13.7 % (0.0-7.3); Platelet Count 248 K/mm3 (140-440); Red Blood Count 5.56 M/mm3 (3.65-5.03); Red Cell Distribution Width 13.9 % (13.2-15.2)
[2020-04-12] MEDS ORDERED: cefTRIAXone/NS 1 GM/50 ML 1 GM/50 ML BAG IV ONE (14:39)
[2020-04-12] MEDS ORDERED: AZITHROMYCIN/NS 500 MG/250 ML 500 MG/250 ML BAG IV ONE (14:40)
[2020-04-12 16:18] LABS: Albumin 3.3 g/dL (3.9-5); Calcium 9.7 mg/dL (8.4-10.2)
[2020-04-12 16:36] LABS: Bilirubin,Direct 0.2 mg/dL (0-0.2)
[2020-04-12] MEDS ORDERED: ACETAMINOPHEN 500 MG TAB PO ONE (16:41)
[2020-04-12] MEDS ORDERED: ALBUTEROL 2.5 MG/3 ML NEBU IH ONE (16:41)
[2020-04-12] MEDS ORDERED: CALCIUM CHLORIDE 1,000 MG/10 ML SYRINGE IV ONE (16:42)
[2020-04-12] MEDS ORDERED: INSULIN REGULAR, HUMAN 100 UNITS/1 ML IV ONE (16:42)
[2020-04-12] MEDS ORDERED: SODIUM POLYSTYRENE 15 GM/60 ML ORAL LIQD PO ONE (16:42)
[2020-04-12] MEDS ORDERED: DEXTROSE 50% IN WATER (25GM) 50 ML SYRINGE IV ONE (16:42)
[2020-04-12] MEDS ORDERED: LACTATED RINGERS 500 ML IV ONE (17:21)
[2020-04-12 18:05] LABS: C-Reactive Protein 5.6 mg/dL (0.00-1.30)
[2020-04-13] MEDS ORDERED: oxyCODONE /ACETAMINOPHEN 5-325MG TAB PO PRN (00:43)
[2020-04-13] MEDS ORDERED: HYDROmorphone 1 MG/1 ML INJ IV PRN (00:43)
[2020-04-13] MEDS ORDERED: ONDANSETRON 4 MG/2 ML INJ IV PRN (00:43)
[2020-04-13] MEDS ORDERED: ACETAMINOPHEN 325 MG TAB PO PRN (00:43)
[2020-04-13] MEDS: SODIUM CHLORIDE 0.9% 1000 ML 1,000 ML IV SCH ×2 (05:11→23:34)
[2020-04-13 06:15] LABS: Hemoglobin 13.9 gm/dl (10.1-14.3); Mean Corpuscular HGB Conc 33 % (30-34); Mean Corpuscular Volume 91 fl (79-97); Platelet Count 196 K/mm3 (140-440); Red Cell Distribution Width 13.6 % (13.2-15.2)
[2020-04-13 06:27] LABS: Calcium 10.2 mg/dL (8.4-10.2)
[2020-04-13 08:21] LABS: Total Cells Counted 100
[2020-04-13 08:22] LABS: Anisocytosis 1+; Burr Cells 1+; Platelet Estimate Consistent w Auto; Poikilocytosis 1+
--- NOTE | 2020-04-13 08:42 | History and Physical Report ---
History of Present Illness Date of examination: 04/12/20 Date of admission: 04/12/20 16:53 Chief complaint: Left flank pain since am History of present illness: Patient is 79 years old female with history of dementia and history of kidney transplant x2. Patient brought to the emergency room accompanied by her sister. Sister stated that patient started complaining of left flank pain this morning. Patient is not communicating well so most of the history is from patient sister. Sister also stated that she has not been eating or drinking well for the last few days. Sister stated that she did not notice any cough or shortness of breath. - Past Medical History Previous Medical History?: Yes Additional medical history: kidney transplant - Surgical History Past Surgical History?: Yes Additional Surgical History: kidney transplant x 2 - Social History Smoking Status: Never Smoker - Medications Home Medications: Home Medications Medication Instructions Recorded Confirmed Last Taken Type HYDROcodone/APAP 5-325 [[place] 1 each PO Q6HR PRN #15 tablet 12/12/18 Unknown Rx 5/325] Review of Systems Comment: All other systems reviewed and negative Constitutional: denies: chills, fever Respiratory: denies: cough, shortness of breath, SOB with exertion Cardiovascular: denies: chest pain, palpitations Gastrointestinal: abdominal pain. denies: nausea, vomiting, diarrhea, constipation, hematemesis Musculoskeletal: denies: back pain Neurological: denies: headache, weakness, numbness, paresthesias, confusion Past History Past Medical History: renal failure Medications and Allergies Allergies Allergy/AdvReac Type Severity Reaction Status Date / Time No Known Allergies Allergy Verified 12/12/18 16:34 Home Medications Medication Instructions Recorded Confirmed Last Taken Type HYDROcodone/APAP 5-325 [[place] 1 each PO Q6HR PRN #15 tablet 12/12/18 Unknown Rx 5/325] Calcium Carbonate/Vitamin D3 1 each PO 04/13/20 Unknown History [Calcium 600 mg-D3 20 Mcg Tab] Levothyroxine Sodium 25 mcg PO Q24HR 04/13/20 04/13/20 Unknown History [Levothyroxine] Tacrolimus [Prograf] 0.5 mg PO Q12H 04/13/20 04/13/20 Unknown History Vitamin B Complex [B Complex] 1 each PO DAILY 04/13/20 04/13/20 Unknown History donepeziL [Aricept] 10 mg PO QHS 04/13/20 04/13/20 Unknown History predniSONE [Deltasone] 5 mg PO QDAY 04/13/20 04/13/20 Unknown History Active Meds: Active Medications Acetaminophen (Acetaminophen 325 Mg Tab) 650 mg PO Q4H PRN PRN Reason: Pain MILD(1-3)/Fever >100.5/CARTER Famotidine (Famotidine 10 Mg Tab) 10 mg PO BID [place] Hydromorphone HCl (Hydromorphone 1 Mg/1 Ml Inj) 0.25 mg IV Q3H PRN PRN Reason: Pain, Moderate (4-6) Sodium Chloride (Nacl 0.9% 1000 Ml) 1,000 mls @ 75 mls/hr IV DIRECT [place] Last Admin: 04/13/20 05:11 Dose: 75 mls/hr Documented by: Ceftriaxone Sodium (Rocephin/Ns 2 Gm/100 Ml) 2 gm in 100 mls @ 200 mls/hr IV Q24HR [place]; Protocol Azithromycin (Zithromax/Ns) 500 mg in 250 mls @ 250 mls/hr IV Q24HR [place] Stop: 04/16/20 10:59 Ondansetron HCl (Ondansetron 4 Mg/2 Ml Inj) 4 mg IV Q8H PRN PRN Reason: Nausea And Vomiting Oxycodone/Acetaminophen (Oxycodone /Acetaminophen 5-325mg Tab) 1 tab PO Q6H PRN PRN Reason: Pain, Moderate (4-6) Sodium Chloride (Sodium Chloride 0.9% 10 Ml Flush Syringe) 10 ml IV BID [place] Sodium Chloride (Sodium Chloride 0.9% 10 Ml Flush Syringe) 10 ml IV PRN PRN PRN Reason: LINE FLUSH Exam - Constitutional Vitals: Temp Pulse Resp BP Pulse Ox 98.3 F 72 18 116/70 95 04/13/20 04:56 04/13/20 04:56 04/13/20 04:56 04/13/20 04:56 04/13/20 04:56 General appearance: Present: no acute distress, well-nourished - EENT Eyes: Present: PERRL ENT: hearing intact, clear oral mucosa - Neck Neck: Present: supple, normal ROM - Respiratory Respiratory effort: normal Respiratory: bilateral: CTA - Cardiovascular Heart Sounds: Present: S1 & S2. Absent: rub, click - Extremities Extremities: pulses symmetrical, No edema Peripheral Pulses: within normal limits - Abdominal General gastrointestinal: Present: soft, non-tender, non-distended, normal bowel sounds Female genitourinary: Present: normal - Integumentary Integumentary: Present: clear, warm, dry - Musculoskeletal Musculoskeletal: gait normal, strength equal bilaterally - Psychiatric Psychiatric: appropriate mood/affect, intact judgment & insight - Neurologic Neurologic: CNII-XII intact, moves all extremities HEART Score - HEART Score Troponin: Troponin T < 0.010 ng/mL (0.00-0.029) 04/12/20 Unknown Results - Labs CBC & Chem 7: 04/14/20 04:53 04/14/20 04:53 Labs: Laboratory Last Values WBC 4.5 K/mm3 (4.5-11.0) 04/13/20 05:20 RBC 4.60 M/mm3 (3.65-5.03) 04/13/20 05:20 Hgb 13.9 gm/dl (10.1-14.3) D 04/13/20 05:20 Hct 42.0 % (30.3-42.9) D 04/13/20 05:20 MCV 91 fl (79-97) 04/13/20 05:20 MCH 30 pg (28-32) 04/13/20 05:20 MCHC 33 % (30-34) 04/13/20 05:20 RDW 13.6 % (13.2-15.2) 04/13/20 05:20 Plt Count 196 K/mm3 (140-440) 04/13/20 05:20 Lymph % (Auto) 2.4 % (13.4-35.0) L 04/12/20 13:54 [place] % (Auto) Director Career 04/13/20 05:20 Eos % (Auto) 0.0 % (0.0-4.3) 04/12/20 13:54 Baso % (Auto) 0.2 % (0.0-1.8) 04/12/20 13:54 Lymph # (Auto) 0.2 K/mm3 (1.2-5.4) L 04/12/20 13:54 Garrett # (Auto) 1.4 K/mm3 (0.0-0.8) H 04/12/20 13:54 Eos # (Auto) 0.0 K/mm3 (0.0-0.4) 04/12/20 13:54 Baso # (Auto) 0.0 K/mm3 (0.0-0.1) 04/12/20 13:54 Add Manual Diff Complete 04/13/20 05:20 Total Counted 100 04/13/20 05:20 Seg Neutrophils % 83.7 % (40.0-70.0) H 04/12/20 13:54 Seg Neuts % (Manual) 83.0 % (40.0-70.0) H 04/13/20 05:20 Lymphocytes % (Manual) 3.0 % (13.4-35.0) L 04/13/20 05:20 Monocytes % (Manual) 14.0 % (0.0-7.3) H 04/13/20 05:20 Nucleated RBC % Not Reportable 04/13/20 05:20 Seg Neutrophils # 8.5 K/mm3 (1.8-7.7) H 04/12/20 13:54 Seg Neutrophils # Man 3.7 K/mm3 (1.8-7.7) 04/13/20 05:20 Band Neutrophils # 0.0 K/mm3 04/13/20 05:20 Lymphocytes # (Manual) 0.1 K/mm3 (1.2-5.4) L 04/13/20 05:20 Abs React Lymphs (Man) 0.0 K/mm3 04/13/20 05:20 Monocytes # (Manual) 0.6 K/mm3 (0.0-0.8) 04/13/20 05:20 Eosinophils # (Manual) 0.0 K/mm3 (0.0-0.4) 04/13/20 05:20 Basophils # (Manual) 0.0 K/mm3 (0.0-0.1) 04/13/20 05:20 Metamyelocytes # 0.0 K/mm3 04/13/20 05:20 Myelocytes # 0.0 K/mm3 04/13/20 05:20 Promyelocytes # 0.0 K/mm3 04/13/20 05:20 Blast Cells # 0.0 K/mm3 04/13/20 05:20 WBC Morphology Not Reportable 04/13/20 05:20 Hypersegmented Neuts Not Reportable 04/13/20 05:20 Hyposegmented Neuts Not Reportable 04/13/20 05:20 Hypogranular Neuts Not Reportable 04/13/20 05:20 Smudge Cells Not Reportable 04/13/20 05:20 Toxic Granulation Not Reportable 04/13/20 05:20 Toxic Vacuolation Not Reportable 04/13/20 05:20 Dohle Bodies Not Reportable 04/13/20 05:20 Pelger-Huet Anomaly Not Reportable 04/13/20 05:20 Eric Rods Not Reportable 04/13/20 05:20 Platelet Estimate Consistent w auto 04/13/20 05:20 Clumped Platelets Not Reportable 04/13/20 05:20 Plt Clumps, EDTA Not Reportable 04/13/20 05:20 Large Platelets Not Reportable 04/13/20 05:20 Giant Platelets Not Reportable 04/13/20 05:20 Platelet Satelliting Not Reportable 04/13/20 05:20 Plt Morphology Comment Not Reportable 04/13/20 05:20 RBC Morphology Not Reportable 04/13/20 05:20 Dimorphic RBCs Not Reportable 04/13/20 05:20 Polychromasia Not Reportable 04/13/20 05:20 Hypochromasia Not Reportable 04/13/20 05:20 Poikilocytosis 1+ 04/13/20 05:20 Anisocytosis 1+ 04/13/20 05:20 Microcytosis Not Reportable 04/13/20 05:20 Macrocytosis Not Reportable 04/13/20 05:20 Spherocytes Not Reportable 04/13/20 05:20 Pappenheimer Bodies Not Reportable 04/13/20 05:20 Sickle Cells Not Reportable 04/13/20 05:20 Target Cells Not Reportable 04/13/20 05:20 Tear Drop Cells Not Reportable 04/13/20 05:20 Ovalocytes Not Reportable 04/13/20 05:20 Helmet Cells Not Reportable 04/13/20 05:20 [place] Bodies Not Reportable 04/13/20 05:20 [place] Rings Not Reportable 04/13/20 05:20 Lianna Cells 1+ 04/13/20 05:20 Bite Cells Not Reportable 04/13/20 05:20 Crenated Cell Not Reportable 04/13/20 05:20 Elliptocytes Not Reportable 04/13/20 05:20 Acanthocytes (Spur) Not Reportable 04/13/20 05:20 Rouleaux Not Reportable 04/13/20 05:20 Hemoglobin C Crystals Not Reportable 04/13/20 05:20 Schistocytes Not Reportable 04/13/20 05:20 Malaria parasites Not Reportable 04/13/20 05:20 Jordin Bodies Not Reportable 04/13/20 05:20 Hem Pathologist Commnt No 04/13/20 05:20 D-Dimer 2495.39 ng/mlDDU (0-234) H 04/12/20 17:00 Sodium 145 mmol/L (137-145) 04/13/20 05:20 Potassium 6.0 mmol/L (3.6-5.0) H 04/13/20 05:20 Chloride 113.6 mmol/L (98-107) H 04/13/20 05:20 Carbon Dioxide 23 mmol/L (22-30) 04/13/20 05:20 Anion Gap 14 mmol/L 04/13/20 05:20 BUN 45 mg/dL (7-17) H 04/13/20 05:20 Creatinine 1.5 mg/dL (0.6-1.2) H 04/13/20 05:20 Estimated GFR 40 ml/min 04/13/20 05:20 BUN/Creatinine Ratio 30 % 04/13/20 05:20 Glucose 98 mg/dL (65-100) 04/13/20 05:20 Hemoglobin A1c 6.2 % (4-6) H 04/13/20 05:20 Lactic Acid 2.50 mmol/L (0.7-2.0) H* 04/12/20 15:11 Calcium 10.2 mg/dL (8.4-10.2) 04/13/20 05:20 Ferritin 1732.0 ng/mL (10.0-200.0) H 04/12/20 17:00 Total Bilirubin 0.70 mg/dL (0.1-1.2) 04/13/20 05:20 Direct Bilirubin 0.2 mg/dL (0-0.2) 04/12/20 Unknown Indirect Bilirubin 0.1 mg/dL 04/12/20 Unknown AST 49 units/L (5-40) H 04/13/20 05:20 ALT 57 units/L (7-56) H 04/13/20 05:20 Alkaline Phosphatase 67 units/L (35-129) 04/13/20 05:20 Lactate Dehydrogenase 428 units/L (91-180) H 04/12/20 17:00 Troponin T < 0.010 ng/mL (0.00-0.029) 04/12/20 Unknown C-Reactive Protein 5.60 mg/dL (0.00-1.30) H 04/12/20 17:00 Total Protein 5.2 g/dL (6.3-8.2) L 04/13/20 05:20 Albumin 3.0 g/dL (3.9-5) L 04/13/20 05:20 Albumin/Globulin Ratio 1.4 % 04/13/20 05:20 Short CBC 04/12/20 04/13/20 Range/Units 13:54 05:20 WBC 10.1 4.5 (4.5-11.0) K/mm3 Hgb 17.2 H 13.9 D (10.1-14.3) gm/dl Hct 50.9 H 42.0 D (30.3-42.9) % Plt Count 248 196 (140-440) K/mm3 BMP 04/12/20 04/12/20 04/13/20 17:00 Unknown 05:20 Sodium 141 145 Potassium 5.8 H 6.0 H Chloride 107 113.6 H Carbon Dioxide 17 L 23 BUN 47 H 45 H Creatinine 1.6 H 1.5 H Glucose 131 H 129 H 98 Calcium 9.7 10.2 Cardiac Enzymes 04/12/20 Range/Units Unknown Troponin T < 0.010 (0.00-0.029) ng/mL Liver Function 04/12/20 04/13/20 Range/Units Unknown 05:20 Total Bilirubin 0.30 0.70 (0.1-1.2) mg/dL Direct Bilirubin 0.2 (0-0.2) mg/dL AST 80 H 49 H (5-40) units/L ALT 72 H 57 H (7-56) units/L Alkaline Phosphatase 79 67 (35-129) units/L Albumin 3.3 L 3.0 L (3.9-5) g/dL Microbiology: Microbiology 04/12/20 13:54 Peripheral/Venous Blood Culture - Preliminary Culture in Progress Johnson/IV: Voiding Method Incontinent Assessment and Plan Advance Directives: Yes (Full code) VTE prophylaxis?: Chemical Plan of care discussed with patient/family: Yes - Patient Problems (1) Right lower lobe pneumonia Current Visit: Yes Status: Acute Plan to address problem: Initiated on IV Rocephin and IV Zithromax (2) Acute renal failure Current Visit: Yes Status: Acute Qualifiers: Acute renal failure type: with acute tubular necrosis Qualified Code(s): N17.0 - Acute kidney failure with tubular necrosis Plan to address problem: IV fluids for now (3) Failure to thrive Current Visit: Yes Status: Acute (4) Hyperkalemia Current Visit: Yes Status: Acute Plan to address problem: Treated with Kayexalate and Calcium gluconate (5) Suspected 2019 novel coronavirus infection Current Visit: Yes Status: Acute Plan to address problem: [place] virus pcr pending (6) DVT prophylaxis Current Visit: Yes Status: Acute
[2020-04-13] MEDS ORDERED: SODIUM BICARB 8.4% 50 MEQ/50 ML SYRINGE IV NR (09:00)
[2020-04-13] MEDS ORDERED: CALCIUM GLUCONATE 2,000 MG in SODIUM CHLORIDE 0.9% 100 ML IV ONE (09:00)
[2020-04-13] MEDS ORDERED: SODIUM POLYSTYRENE 15 GM/60 ML ORAL LIQD PO NR (09:15)
[2020-04-13] MEDS ORDERED: FAMOTIDINE 20 MG/2 ML INJ IV SCH ×2 (10:00)
[2020-04-13] MEDS: HEPARIN 5,000 UNIT/1 ML VIAL SUB-Q SCH ×2 (11:15→21:40)
[2020-04-13] MEDS: cefTRIAXone/NS 2 GM/100 ML 2 GM/100 ML BAG IV SCH (11:15)
[2020-04-13] MEDS: FAMOTIDINE 10 MG TAB PO SCH ×2 (11:18→21:38)
[2020-04-13] MEDS: AZITHROMYCIN/NS 500 MG/250 ML 500 MG/250 ML BAG IV SCH (15:44)
--- NOTE | 2020-04-13 17:51 | Consultation ---
History of Present Illness - Reason for Consult Consult date: 04/13/20 acute renal failure - History of Present Illness This is a 79-year-old woman with history of CKD, status post renal transplant 2 with the last transplant in 2010 who presented with left-sided abdominal pain. Nephrology was consulted for electrolyte derangements including hyperkalemia and acute kidney injury. ROS and physical exam deferred for PPE conservation and to prevent spread of infection. Primary team exam reviewed Past History Past Medical History: renal failure Medications and Allergies Allergies Allergy/AdvReac Type Severity Reaction Status Date / Time No Known Allergies Allergy Verified 12/12/18 16:34 Home Medications Medication Instructions Recorded Confirmed Last Taken Type HYDROcodone/APAP 5-325 [[place] 1 each PO Q6HR PRN #15 tablet 12/12/18 Unknown Rx 5/325] Active Meds: Active Medications Acetaminophen (Acetaminophen 325 Mg Tab) 650 mg PO Q4H PRN PRN Reason: Pain MILD(1-3)/Fever >100.5/CARTER Famotidine (Famotidine 10 Mg Tab) 10 mg PO BID [facility] Last Admin: 04/13/20 11:18 Dose: 10 mg Documented by: Heparin Sodium (Porcine) (Heparin 5,000 Unit/1 Ml Vial) 5,000 unit SUB-Q Q12HR [facility] Last Admin: 04/13/20 11:15 Dose: 5,000 unit Documented by: Hydromorphone HCl (Hydromorphone 1 Mg/1 Ml Inj) 0.25 mg IV Q3H PRN PRN Reason: Pain, Moderate (4-6) Sodium Chloride (Nacl 0.9% 1000 Ml) 1,000 mls @ 75 mls/hr IV DIRECT [facility] Last Admin: 04/13/20 05:11 Dose: 75 mls/hr Documented by: Ceftriaxone Sodium (Rocephin/Ns 2 Gm/100 Ml) 2 gm in 100 mls @ 200 mls/hr IV Q24HR [facility]; Protocol Last Admin: 04/13/20 11:15 Dose: 200 mls/hr Documented by: Azithromycin (Zithromax/Ns) 500 mg in 250 mls @ 250 mls/hr IV Q24HR [facility] Stop: 04/16/20 10:59 Last Admin: 04/13/20 15:44 Dose: 250 mls/hr Documented by: Ondansetron HCl (Ondansetron 4 Mg/2 Ml Inj) 4 mg IV Q8H PRN PRN Reason: Nausea And Vomiting Oxycodone/Acetaminophen (Oxycodone /Acetaminophen 5-325mg Tab) 1 tab PO Q6H PRN PRN Reason: Pain, Moderate (4-6) Sodium Chloride (Sodium Chloride 0.9% 10 Ml Flush Syringe) 10 ml IV BID [facility] Last Admin: 04/13/20 11:17 Dose: 10 ml Documented by: Sodium Chloride (Sodium Chloride 0.9% 10 Ml Flush Syringe) 10 ml IV PRN PRN PRN Reason: LINE FLUSH Exam - Vital Signs Vital signs: Vital Signs Pulse Resp BP Pulse Ox 79 16 142/70 94 04/12/20 11:18 04/12/20 11:18 04/12/20 11:18 04/12/20 11:18 - Physical Exam Narrative exam: Deferred for PPE conservation and to prevent spread of infection Results - Lab Results 04/13/20 05:20 04/13/20 05:20 Most recent lab results Calcium 10.2 mg/dL (8.4-10.2) 04/13/20 05:20 Assessment and Plan Assessment CKD, status post transplant in 2010 Acute kidney injury Hyperkalemia Acidosis Covid positive Pneumonia Recommendations Check urinalysis Check urine culture Check CPK Check renal ultrasound Continue IVF S/p kayexalate, recheck BMP Renally dose medications Avoid nephrotoxins Keep MAP > 65 Strict I/O No indication for dialysis at this time Renal diet
[2020-04-13] MEDS ORDERED: TACROLIMUS 0.5 MG PO SCH (22:00)
[2020-04-14 00:48] LABS: Bilirubin,Urine NEG (Negative); Blood,Urine NEG (Negative); Color,Urine Yellow (Yellow); Mucus,Urine FEW /HPF; Protein,Urine <15 mg/dL mg/dL (Negative); RBC,Urine < 1.0 /HPF (0.0-6.0); Urobilinogen,Urine < 2.0 mg/dL (<2.0)
[2020-04-14 06:37] LABS: Hematocrit 37.1 % (30.3-42.9); Hemoglobin 12.1 gm/dl (10.1-14.3); Mean Corpuscular HGB Conc 33 % (30-34); Mean Corpuscular Volume 91 fl (79-97); Platelet Count 151 K/mm3 (140-440); Red Blood Count 4.08 M/mm3 (3.65-5.03); Red Cell Distribution Width 13.3 % (13.2-15.2)
[2020-04-14 06:48] LABS: Basophils % (Auto) 0.2 % (0.0-1.8); Eosinophils % (Auto) 0.2 % (0.0-4.3); Lymphocytes # (Auto) 0.2 K/mm3 (1.2-5.4); Lymphocytes % (Auto) 7.1 % (13.4-35.0); Monocytes # (Auto) 0.5 K/mm3 (0.0-0.8); Monocytes % (Auto) 15.7 % (0.0-7.3)
[2020-04-14 06:51] LABS: Calcium 9.1 mg/dL (8.4-10.2)
--- NOTE | 2020-04-14 08:19 | Progress Note ---
Assessment and Plan - Patient Problems (1) Pneumonia due to COVID-19 virus Current Visit: Yes Status: Acute Plan to address problem: On IV Dexamethasone Patient tested positive for coronavirus PCR (2) Right lower lobe pneumonia Current Visit: Yes Status: Acute Plan to address problem: Continue IV Rocephin and IV Zithromax (3) Acute renal failure Current Visit: Yes Status: Acute Qualifiers: Acute renal failure type: with acute tubular necrosis Qualified Code(s): N17.0 - Acute kidney failure with tubular necrosis Plan to address problem: IV fluids for now (4) Failure to thrive Current Visit: Yes Status: Acute Plan to address problem: Dietary supplements (5) Hyperkalemia Current Visit: Yes Status: Acute Plan to address problem: Treated with Kayexalate and Calcium gluconate Patient refuses Kayexalate (6) Suspected 2019 novel coronavirus infection Current Visit: Yes Status: Acute Plan to address problem: [place] virus pcr pending (7) DVT prophylaxis Current Visit: Yes Status: Acute Plan to address problem: On heparin and GI prophylaxis Subjective Date of service: 04/13/20 Principal diagnosis: Covid pneumonia Interval history: Patient is 79 years old female with history of dementia and history of kidney transplant x2. Patient brought to the emergency room accompanied by her sister. Sister stated that patient started complaining of left flank pain this morning. Patient is not communicating well so most of the history is from patient sister. Sister also stated that she has not been eating or drinking well for the last few days. Sister stated that she did not notice any cough or shortness of breath. Day #2 04/13/2020 Patient tested positive for Covid pneumonia Objective - Constitutional Vitals: Vital Signs - 12hr 04/13/20 04/14/20 22:30 06:13 Temperature 98.8 F 98.8 F Pulse Rate 68 58 L Respiratory 15 15 Rate Blood Pressure 121/87 123/71 O2 Sat by Pulse 94 96 Oximetry General appearance: Present: no acute distress, well-nourished - EENT Eyes: PERRL, EOM intact ENT: hearing intact, clear oral mucosa Ears: bilateral: normal - Neck Neck: supple, normal ROM - Respiratory Respiratory effort: normal Respiratory: bilateral: CTA - Breasts Breasts: normal - Cardiovascular Heart rate: 78 Rhythm: regular Heart Sounds: Present: S1 & S2. Absent: gallop, rub Extremities: pulses intact, No edema, normal color, Full ROM - Gastrointestinal General gastrointestinal: Present: soft, non-tender, non-distended, normal bowel sounds - Genitourinary Female genitourinary: normal - Integumentary Integumentary: clear, warm, dry - Musculoskeletal Musculoskeletal: 1, strength equal bilaterally - Neurologic Neurologic: moves all extremities - Psychiatric Psychiatric: memory intact, appropriate mood/affect, intact judgment & insight - Labs CBC & Chem 7: 04/14/20 04:53 04/14/20 04:53 Labs: Abnormal lab results 04/13/20 04/13/20 04/13/20 Range/Units 05:20 19:02 Unknown WBC (4.5-11.0) K/mm3 Lymph % (Auto) (13.4-35.0) % [place] % (Auto) (0.0-7.3) % Lymph # (Auto) (1.2-5.4) K/mm3 Seg Neutrophils % (40.0-70.0) % Seg Neuts % (Manual) 83.0 H (40.0-70.0) % Lymphocytes % (Manual) 3.0 L (13.4-35.0) % Monocytes % (Manual) 14.0 H (0.0-7.3) % Lymphocytes # (Manual) 0.1 L (1.2-5.4) K/mm3 Sodium 147 H (137-145) mmol/L Chloride 115.7 H (98-107) mmol/L Carbon Dioxide 20 L (22-30) mmol/L BUN 37 H (7-17) mg/dL Coronavirus (PCR) Positive A (Negative) 04/14/20 04/14/20 Range/Units 04:53 04:53 WBC 3.4 L (4.5-11.0) K/mm3 Lymph % (Auto) 7.1 L (13.4-35.0) % [place] % (Auto) 15.7 H (0.0-7.3) % Lymph # (Auto) 0.2 L (1.2-5.4) K/mm3 Seg Neutrophils % 76.8 H (40.0-70.0) % Seg Neuts % (Manual) (40.0-70.0) % Lymphocytes % (Manual) (13.4-35.0) % Monocytes % (Manual) (0.0-7.3) % Lymphocytes # (Manual) (1.2-5.4) K/mm3 Sodium 151 H (137-145) mmol/L Chloride 119.6 H (98-107) mmol/L Carbon Dioxide (22-30) mmol/L BUN 31 H (7-17) mg/dL Coronavirus (PCR) (Negative) HEART Score - HEART Score Troponin: Troponin T < 0.010 ng/mL (0.00-0.029) 04/12/20 Unknown
[2020-04-14] MEDS ORDERED: VITAMIN B COMPLEX PO SCH (10:00)
[2020-04-14] MEDS: predniSONE 5 MG TAB PO SCH (10:37)
[2020-04-14] MEDS: DONEPEZIL 10 MG TAB PO SCH (10:37)
[2020-04-14] MEDS: HEPARIN 5,000 UNIT/1 ML VIAL SUB-Q SCH ×2 (10:37→21:18)
[2020-04-14] MEDS: cefTRIAXone/NS 2 GM/100 ML 2 GM/100 ML BAG IV SCH (10:37)
[2020-04-14] MEDS: AZITHROMYCIN/NS 500 MG/250 ML 500 MG/250 ML BAG IV SCH (10:37)
[2020-04-14] MEDS: FAMOTIDINE 10 MG TAB PO SCH ×2 (10:37→21:14)
[2020-04-14] MEDS: B COMPLEX W/VITAMIN C TAB PO SCH (10:37)
--- NOTE | 2020-04-14 18:15 | Progress Note ---
Assessment and Plan Assessment CKD, status post transplant in 2010 Chronic immunosuppressant therapy Acute kidney injury Hyperkalemia Acidosis Covid positive Pneumonia Recommendations Renal ultrasound ordered - pending S/p IVF S/p kayexalate, now with K within acceptable range Restart immunosuppressant therapy Check Prograf level Renally dose medications Avoid nephrotoxins Keep MAP > 65 Strict I/O No indication for dialysis at this time Renal diet Subjective Date of service: 04/14/20 Principal diagnosis: Pneumonia Interval history: Urine output 250 cc documented, however not accurate as patient is incontinent Patient is being followed for renal issues Nursing, interdisciplinary and consult notes were reviewed Vitals, input and output, medications and labs were reviewed Objective - Exam Narrative Exam: Deferred for PPE conservation and to prevent spread of infection - Vital Signs Vital signs: Vital Signs - 12hr 04/14/20 04/14/20 04/14/20 06:13 11:50 16:59 Temperature 98.8 F 98.9 F 98.5 F Pulse Rate 58 L 59 L 49 L Respiratory 15 18 18 Rate Blood Pressure 123/71 150/69 145/63 O2 Sat by Pulse 96 98 96 Oximetry - Lab 04/14/20 04:53 04/14/20 04:53 Most recent lab results Calcium 9.1 mg/dL (8.4-10.2) 04/14/20 04:53 Medications & Allergies - Medications Allergies/Adverse Reactions: Allergies No Known Allergies Allergy (Verified 12/12/18 16:34) Home Medications: Home Medications Medication Instructions Recorded Confirmed Last Taken Type HYDROcodone/APAP 5-325 [[place] 1 each PO Q6HR PRN #15 tablet 12/12/18 Unknown Rx 5/325] Calcium Carbonate/Vitamin D3 1 each PO 04/13/20 Unknown History [Calcium 600 mg-D3 20 Mcg Tab] Levothyroxine Sodium 25 mcg PO Q24HR 04/13/20 04/13/20 Unknown History [Levothyroxine] Tacrolimus [Prograf] 0.5 mg PO Q12H 04/13/20 04/13/20 Unknown History Vitamin B Complex [B Complex] 1 each PO DAILY 04/13/20 04/13/20 Unknown History donepeziL [Aricept] 10 mg PO QHS 04/13/20 04/13/20 Unknown History predniSONE [Deltasone] 5 mg PO QDAY 04/13/20 04/13/20 Unknown History Active Medications: Generic Name Dose Route Start Last Admin Trade Name Freq PRN Reason Stop Dose Admin Acetaminophen 650 mg 04/13/20 00:43 Acetaminophen 325 Mg Tab PO Q4H PRN Pain MILD(1-3)/Fever >100.5/CARTER Donepezil HCl 10 mg 04/14/20 10:00 04/14/20 10:37 Donepezil 10 Mg Tab PO 10 mg QDAY [facility] Administration Famotidine 10 mg 04/13/20 10:00 04/14/20 10:37 Famotidine 10 Mg Tab PO 10 mg BID [facility] Administration Heparin Sodium (Porcine) 5,000 unit 04/13/20 10:00 04/14/20 10:37 Heparin 5,000 Unit/1 Ml Vial SUB-Q 5,000 unit Q12HR [facility] Administration Hydromorphone HCl 0.25 mg 04/13/20 00:43 Hydromorphone 1 Mg/1 Ml Inj IV Q3H PRN Pain, Moderate (4-6) Sodium Chloride 1,000 mls @ 75 mls/hr 04/13/20 00:45 04/13/20 23:34 Nacl 0.9% 1000 Ml IV 75 mls/hr DIRECT [facility] Administration Ceftriaxone Sodium 2 gm in 100 mls @ 200 mls/hr 04/13/20 10:00 04/14/20 10:37 Rocephin/Ns 2 Gm/100 Ml IV 04/16/20 10:59 200 mls/hr Q24HR [facility] Administration Protocol Azithromycin 500 mg in 250 mls @ 250 mls/hr 04/13/20 10:00 04/14/20 10:37 Zithromax/Ns IV 04/16/20 10:59 250 mls/hr Q24HR [facility] Administration Miscellaneous Medication 0.5 mg 04/13/20 22:00 Tacrolimus [Prograf] PO Q12H [facility] Ondansetron HCl 4 mg 04/13/20 00:43 Ondansetron 4 Mg/2 Ml Inj IV Q8H PRN Nausea And Vomiting Oxycodone/Acetaminophen 1 tab 04/13/20 00:43 Oxycodone /Acetaminophen 5-325mg Tab PO Q6H PRN Pain, Moderate (4-6) Prednisone 5 mg 04/14/20 10:00 04/14/20 10:37 Prednisone 5 Mg Tab PO 5 mg QDAY [facility] Administration Sodium Chloride 10 ml 04/13/20 10:00 04/14/20 10:41 Sodium Chloride 0.9% 10 Ml Flush Syringe IV 10 ml BID [facility] Administration Sodium Chloride 10 ml 04/13/20 00:43 Sodium Chloride 0.9% 10 Ml Flush Syringe IV PRN PRN LINE FLUSH Vitamin B Complex/Vitamin C 1 each 04/14/20 10:00 04/14/20 10:37 B Complex W/Vitamin C Tab PO 1 each QDAY [facility] Administration
[2020-04-14] MEDS: SODIUM CHLORIDE 0.9% 1000 ML 1,000 ML IV SCH (21:45)
--- NOTE | 2020-04-15 06:41 | Progress Note ---
Assessment and Plan - Patient Problems (1) Pneumonia due to Coronavirus disease 2018 Current Visit: Yes Status: Acute Plan to address problem: Continue IV dexamethasone ID consult requested (2) Pneumonia due to COVID-19 virus Current Visit: Yes Status: Acute Plan to address problem: On IV Dexamethasone Patient tested positive for coronavirus PCR (3) Right lower lobe pneumonia Current Visit: Yes Status: Acute Plan to address problem: Continue IV Rocephin and IV Zithromax (4) Acute renal failure Current Visit: Yes Status: Acute Qualifiers: Acute renal failure type: with acute tubular necrosis Qualified Code(s): N17.0 - Acute kidney failure with tubular necrosis Plan to address problem: IV fluids for now (5) Failure to thrive Current Visit: Yes Status: Acute Plan to address problem: Dietary supplements (6) Hyperkalemia Current Visit: Yes Status: Acute Plan to address problem: Potassium to normal level (7) Suspected 2019 novel coronavirus infection Current Visit: Yes Status: Acute Plan to address problem: [place] virus pcr positive (8) Hypernatremia Current Visit: Yes Status: Acute Plan to address problem: D5W initiated (9) DVT prophylaxis Current Visit: Yes Status: Acute Plan to address problem: On heparin and GI prophylaxis Subjective Date of service: 04/14/20 Principal diagnosis: Covid pneumonia Interval history: Patient is 79 years old female with history of dementia and history of kidney transplant x2. Patient brought to the emergency room accompanied by her sister. Sister stated that patient started complaining of left flank pain this morning. Patient is not communicating well so most of the history is from patient sister. Sister also stated that she has not been eating or drinking well for the last few days. Sister stated that she did not notice any cough or shortness of breath. Day #2 04/13/2020 Patient tested positive for Covid pneumonia Day #3 On 2 L nasal cannula oxygen Change to room air at 4 PM Decreased p.o. intake Otherwise doing well Objective - Constitutional Vitals: Vital Signs - 12hr 04/14/20 04/15/20 22:30 06:06 Temperature 98.3 F 98.3 F Pulse Rate 45 L 46 L Respiratory 16 16 Rate Blood Pressure 147/68 152/61 O2 Sat by Pulse 97 92 Oximetry General appearance: Present: no acute distress, well-nourished - EENT Eyes: PERRL, EOM intact ENT: hearing intact, clear oral mucosa Ears: bilateral: normal - Neck Neck: supple, normal ROM - Respiratory Respiratory effort: normal Respiratory: bilateral: CTA - Breasts Breasts: normal - Cardiovascular Heart rate: 78 Rhythm: regular Heart Sounds: Present: S1 & S2. Absent: gallop, rub Extremities: pulses intact, No edema, normal color, Full ROM - Gastrointestinal General gastrointestinal: Present: soft, non-tender, non-distended, normal bowel sounds - Genitourinary Female genitourinary: normal - Integumentary Integumentary: clear, warm, dry - Musculoskeletal Musculoskeletal: 1, strength equal bilaterally - Neurologic Neurologic: moves all extremities - Psychiatric Psychiatric: memory intact, appropriate mood/affect, intact judgment & insight - Labs CBC & Chem 7: 04/14/20 04:53 04/14/20 04:53 Labs: Abnormal lab results 04/14/20 04/14/20 Range/Units 04:53 04:53 WBC 3.4 L (4.5-11.0) K/mm3 Lymph % (Auto) 7.1 L (13.4-35.0) % [place] % (Auto) 15.7 H (0.0-7.3) % Lymph # (Auto) 0.2 L (1.2-5.4) K/mm3 Seg Neutrophils % 76.8 H (40.0-70.0) % Sodium 151 H (137-145) mmol/L Chloride 119.6 H (98-107) mmol/L BUN 31 H (7-17) mg/dL HEART Score - HEART Score Troponin: Troponin T < 0.010 ng/mL (0.00-0.029) 04/12/20 Unknown
--- NOTE | 2020-04-15 07:43 | Progress Note ---
Assessment and Plan - Patient Problems (1) Acute renal failure Current Visit: Yes Status: Acute Qualifiers: Acute renal failure type: with acute tubular necrosis Qualified Code(s): N17.0 - Acute kidney failure with tubular necrosis Plan to address problem: Assessment CKD, status post transplant in 2010 Chronic immunosuppressant therapy Acute kidney injury no need for HD at this time At present appears to be secondary to vasomotor nephropathy. Creatinine improving. (2) Failure to thrive Current Visit: Yes Status: Acute Plan to address problem: Most likely secondary to advancing dementia exacerbated by COVID-19. Patient no longer has fever appears hemodynamically stable at this time but significant cognitive deficit. (3) Hyperkalemia Current Visit: Yes Status: Acute Plan to address problem: Resolved. (4) Hypernatremia Current Visit: Yes Status: Acute Plan to address problem: Resolved. (5) Pneumonia due to COVID-19 virus Current Visit: Yes Status: Acute Plan to address problem: Patient sats stable with room air. Does not require remdesivir or steroids at this particular time just quarantine. Will initiate home health physical therapy evaluation to assess needs at home. And anticipated discharge. (6) Right lower lobe pneumonia Current Visit: Yes Status: Acute Plan to address problem: Continue azithromycin at this particular time we will continue at discharge as well. Will observe patient high risk for decompensation with kidney transplant advanced age and COVID-19. Subjective Date of service: 04/15/20 Principal diagnosis: Covid pneumonia Interval history: Patient is 79 years old female with history of dementia and history of kidney transplant x2. Patient brought to the emergency room accompanied by her sister. Sister stated that patient started complaining of left flank pain this morning. Patient is not communicating well so most of the history is from patient sister. Sister also stated that she has not been eating or drinking well for the last few days. Sister stated that she did not notice any cough or shortness of breath. Day #3 Patient very pleasantly confused today. Remains somewhat hypoxic but stable with 2 L of O2. Patient does ask for food but staff states she is not hungry and not eating that well. Patient no longer coughing. No longer complaining of flank pain no shortness of breath. Able to speak full sentences no evidence of hypoxemia today. Objective - Constitutional Vitals: Vital Signs - 12hr 04/14/20 04/15/20 22:30 06:06 Temperature 98.3 F 98.3 F Pulse Rate 45 L 46 L Respiratory 16 16 Rate Blood Pressure 147/68 152/61 O2 Sat by Pulse 97 92 Oximetry General appearance: Present: no acute distress, well-nourished, other (Somewhat cachectic appearing but 79 years old.) - EENT Eyes: PERRL, EOM intact ENT: hearing intact, clear oral mucosa, other (Thin temporal wasting.) Ears: bilateral: normal - Neck Neck: supple, normal ROM - Respiratory Respiratory effort: normal Respiratory: bilateral: CTA - Breasts Breasts: normal - Cardiovascular Rhythm: regular Heart Sounds: Present: S1 & S2. Absent: gallop, rub Extremities: pulses intact, No edema, normal color, Full ROM - Gastrointestinal General gastrointestinal: Present: soft, non-tender, non-distended, normal bowel sounds - Genitourinary Female genitourinary: normal - Integumentary Integumentary: clear, warm, dry - Musculoskeletal Musculoskeletal: generalized weakness - Neurologic Neurologic: moves all extremities - Psychiatric Psychiatric: memory intact, appropriate mood/affect, intact judgment & insight - Labs CBC & Chem 7: 04/14/20 04:53 04/15/20 07:23 HEART Score - HEART Score Troponin: Troponin T < 0.010 ng/mL (0.00-0.029) 04/12/20 Unknown
[2020-04-15 08:01] LABS: BUN/Creatinine Ratio 24; Blood Urea Nitrogen 22 mg/dL (7-17); Calcium 8.2 mg/dL (8.4-10.2); Hemolysis Index 4
[2020-04-15] MEDS: DONEPEZIL 10 MG TAB PO SCH (10:00)
[2020-04-15] MEDS: B COMPLEX W/VITAMIN C TAB PO SCH (10:00)
[2020-04-15] MEDS: predniSONE 5 MG TAB PO SCH (10:00)
[2020-04-15] MEDS: FAMOTIDINE 10 MG TAB PO SCH ×2 (10:01→22:14)
[2020-04-15] MEDS: AZITHROMYCIN/NS 500 MG/250 ML 500 MG/250 ML BAG IV SCH (10:01)
[2020-04-15] MEDS: cefTRIAXone/NS 2 GM/100 ML 2 GM/100 ML BAG IV SCH (10:01)
[2020-04-15] MEDS: HEPARIN 5,000 UNIT/1 ML VIAL SUB-Q SCH ×2 (10:02→22:14)
[2020-04-15] MEDS: DEXTROSE 5% IN WATER 1,000 ML IV SCH (10:14)
[2020-04-15] MEDS: TACROLIMUS 0.5 MG CAP PO SCH ×2 (11:00→23:19)
--- NOTE | 2020-04-15 13:20 | Consultation ---
History of Present Illness - Reason for Consult Consult date: 04/15/20 COVID Requesting physician: JAVIER DUARTE - History of Present Illness The patient is a 79-year-old female with dementia, renal transplant x2, on chronic immunosuppressant therapy was admitted to the hospital with complaints of flank pain. She was noted to have a low-grade fever. Labs showed normal WBC initially, she has now developed some leukopenia. D-dimer was 2495, creatinine has normalized. Patient tested positive for COVID-19, hence infectious diseases was consulted. She has remained afebrile since hospitalization. Currently on room air. Procalcitonin was low at 0.14 Review of Systems: reviewed in the chart, unable to obtain, minimize risk of transmission Past History Past Medical History: renal failure Medications and Allergies Allergies Allergy/AdvReac Type Severity Reaction Status Date / Time No Known Allergies Allergy Verified 12/12/18 16:34 Home Medications Medication Instructions Recorded Confirmed Last Taken Type HYDROcodone/APAP 5-325 [[place] 1 each PO Q6HR PRN #15 tablet 12/12/18 04/15/20 U nknown Rx 5/325] Calcium Carbonate/Vitamin D3 1 each PO DAILY 04/13/20 04/15/20 Unknown History [Calcium 600 mg-D3 20 Mcg Tab] Levothyroxine Sodium 25 mcg PO Q24HR 04/13/20 04/13/20 Unknown History [Levothyroxine] Tacrolimus [Prograf] 0.5 mg PO Q12H 04/13/20 04/13/20 Unknown History Vitamin B Complex [B Complex] 1 each PO DAILY 04/13/20 04/13/20 Unknown History donepeziL [Aricept] 10 mg PO QHS 04/13/20 04/13/20 Unknown History predniSONE [Deltasone] 5 mg PO QDAY 04/13/20 04/13/20 Unknown History Active Meds: Active Medications Acetaminophen (Acetaminophen 325 Mg Tab) 650 mg PO Q4H PRN PRN Reason: Pain MILD(1-3)/Fever >100.5/CARTER Donepezil HCl (Donepezil 10 Mg Tab) 10 mg PO QDAY [facility] Last Admin: 04/15/20 10:00 Dose: 10 mg Documented by: Famotidine (Famotidine 10 Mg Tab) 10 mg PO BID [facility] Last Admin: 04/15/20 10:01 Dose: 10 mg Documented by: Heparin Sodium (Porcine) (Heparin 5,000 Unit/1 Ml Vial) 5,000 unit SUB-Q Q12HR [facility] Last Admin: 04/15/20 10:02 Dose: 5,000 unit Documented by: Hydromorphone HCl (Hydromorphone 1 Mg/1 Ml Inj) 0.25 mg IV Q3H PRN PRN Reason: Pain, Moderate (4-6) Ceftriaxone Sodium (Rocephin/Ns 2 Gm/100 Ml) 2 gm in 100 mls @ 200 mls/hr IV Q24HR [facility]; Protocol Stop: 04/16/20 10:59 Last Admin: 04/15/20 10:01 Dose: 200 mls/hr Documented by: Azithromycin (Zithromax/Ns) 500 mg in 250 mls @ 250 mls/hr IV Q24HR [facility] Stop: 04/16/20 10:59 Last Admin: 04/15/20 10:01 Dose: 250 mls/hr Documented by: Dextrose (D5w) 1,000 mls @ 75 mls/hr IV DIRECT [facility] Last Admin: 04/15/20 10:14 Dose: 75 mls/hr Documented by: Ondansetron HCl (Ondansetron 4 Mg/2 Ml Inj) 4 mg IV Q8H PRN PRN Reason: Nausea And Vomiting Oxycodone/Acetaminophen (Oxycodone /Acetaminophen 5-325mg Tab) 1 tab PO Q6H PRN PRN Reason: Pain, Moderate (4-6) Prednisone (Prednisone 5 Mg Tab) 5 mg PO QDAY [facility] Last Admin: 04/15/20 10:00 Dose: 5 mg Documented by: Sodium Chloride (Sodium Chloride 0.9% 10 Ml Flush Syringe) 10 ml IV BID [facility] Last Admin: 04/15/20 10:00 Dose: 10 ml Documented by: Sodium Chloride (Sodium Chloride 0.9% 10 Ml Flush Syringe) 10 ml IV PRN PRN PRN Reason: LINE FLUSH Tacrolimus (Tacrolimus 0.5 Mg Cap) 1.5 mg PO QAM [facility] Tacrolimus (Tacrolimus 0.5 Mg Cap) 1 mg PO QHS [facility] Vitamin B Complex/Vitamin C (B Complex W/Vitamin C Tab) 1 each PO QDAY [facility] Last Admin: 04/15/20 10:00 Dose: 1 each Documented by: Physical Examination - Physical Exam Narrative exam: Physical Exam (reviewed in chart to minimize risk of transmission) Constitutional: deferred Head, Ears, Nose: deferred Eyes: deferred Neck: deferred Oral: deferred Cardiovascular: deferred Respiratory: deferred GI: deferred Musculoskeletal: deferred Skin: deferred Hem/Lymphatic: deferred Psych: deferred Neurological: deferred - Constitutional Vitals: Vital Signs Temp Pulse Resp BP Pulse Ox 98.3 F 46 L 16 152/61 92 04/15/20 06:06 04/15/20 06:06 04/15/20 06:06 04/15/20 06:06 04/15/20 06:06 Temperature -Last 24 Hours Temperature 98.3 F Temperature 98.3 F Temperature 98.5 F Results - Labs CBC & Chem 7: 04/14/20 04:53 04/15/20 07:23 Labs: Abnormal lab results 04/15/20 Range/Units 07:23 Sodium 147 H (137-145) mmol/L Chloride 118.5 H (98-107) mmol/L BUN 22 H (7-17) mg/dL Calcium 8.2 L (8.4-10.2) mg/dL - Imaging and Cardiology Chest x-ray: report reviewed, image reviewed (no obvious pneumonia seen) Assessment and Plan Cultures: SARS CoV2 PCR: Positive Blood culture: No growth Urine culture: No growth A/P: 79-year-old female with dementia, renal transplant x2, on chronic immunosuppressant therapy, bedbound status was admitted to the hospital with complaints of flank pain: #COVID-19: Not hypoxic. Bedbound status, cannot do ambulatory sats #Renal transplant x2, chronic immunosuppressant therapy. UA not suggestive of any UTI #Leucopenia: probably from meds v/s COVID-19. Recs: Continue supportive care for now, patient remains on room air hence no benefit with remdesivir or steroids at this time Procalcitonin low, antibiotics not needed Continue to monitor for hypoxia, patient being immunosuppressed is at risk of severe disease Galo Acuña MD, FACP [facility] ([facility] O: [phone] F: [phone]
--- NOTE | 2020-04-15 18:23 | Progress Note ---
Assessment and Plan Assessment CKD, status post transplant in 2010 Chronic immunosuppressant therapy Acute kidney injury Hyperkalemia Acidosis Covid positive Pneumonia Recommendations S/p IVF, continue PO hydration S/p kayexalate, now with K within acceptable range Continue immunosuppressant therapy Check Prograf level ID note reviewed Renally dose medications Avoid nephrotoxins Keep MAP > 65 Strict I/O No indication for dialysis at this time Renal diet Subjective Date of service: 04/15/20 Principal diagnosis: Covid pneumonia Interval history: On room air Patient is being followed for renal issues Nursing, interdisciplinary and consult notes were reviewed Vitals, input and output, medications and labs were reviewed Objective - Exam Narrative Exam: Deferred for PPE conservation and to prevent spread of infection - Vital Signs Vital signs: Vital Signs - 12hr 04/15/20 04/15/20 12:40 16:52 Temperature 98.6 F 99.2 F Pulse Rate 77 68 Respiratory 18 18 Rate Blood Pressure 112/78 139/77 O2 Sat by Pulse 98 99 Oximetry - Lab 04/14/20 04:53 04/15/20 07:23 Most recent lab results Calcium 8.2 mg/dL (8.4-10.2) L 04/15/20 07:23 Medications & Allergies - Medications Allergies/Adverse Reactions: Allergies No Known Allergies Allergy (Verified 12/12/18 16:34) Home Medications: Home Medications Medication Instructions Recorded Confirmed Last Taken Type HYDROcodone/APAP 5-325 [[place] 1 each PO Q6HR PRN #15 tablet 12/12/18 04/15/20 Unknown Rx 5/325] Calcium Carbonate/Vitamin D3 1 each PO DAILY 04/13/20 04/15/20 Unknown History [Calcium 600 mg-D3 20 Mcg Tab] Levothyroxine Sodium 25 mcg PO Q24HR 04/13/20 04/13/20 Unknown History [Levothyroxine] Tacrolimus [Prograf] 0.5 mg PO Q12H 04/13/20 04/13/20 Unknown History Vitamin B Complex [B Complex] 1 each PO DAILY 04/13/20 04/13/20 Unknown History donepeziL [Aricept] 10 mg PO QHS 04/13/20 04/13/20 Unknown History predniSONE [Deltasone] 5 mg PO QDAY 04/13/20 04/13/20 Unknown History Active Medications: Generic Name Dose Route Start Last Admin Trade Name Freq PRN Reason Stop Dose Admin Acetaminophen 650 mg 04/13/20 00:43 Acetaminophen 325 Mg Tab PO Q4H PRN Pain MILD(1-3)/Fever >100.5/CARTER Donepezil HCl 10 mg 04/14/20 10:00 04/15/20 10:00 Donepezil 10 Mg Tab PO 10 mg QDAY VALENTINA Administration Famotidine 10 mg 04/13/20 10:00 04/15/20 10:01 Famotidine 10 Mg Tab PO 10 mg BID VALENTINA Administration Heparin Sodium (Porcine) 5,000 unit 04/13/20 10:00 04/15/20 10:02 Heparin 5,000 Unit/1 Ml Vial SUB-Q 5,000 unit Q12HR VALENTINA Administration Hydromorphone HCl 0.25 mg 04/13/20 00:43 Hydromorphone 1 Mg/1 Ml Inj IV Q3H PRN Pain, Moderate (4-6) Ceftriaxone Sodium 2 gm in 100 mls @ 200 mls/hr 04/13/20 10:00 04/15/20 10:01 Rocephin/Ns 2 Gm/100 Ml IV 04/16/20 10:59 200 mls/hr Q24HR VALENTINA Administration Protocol Azithromycin 500 mg in 250 mls @ 250 mls/hr 04/13/20 10:00 04/15/20 10:01 Zithromax/Ns IV 04/16/20 10:59 250 mls/hr Q24HR VALENTINA Administration Dextrose 1,000 mls @ 75 mls/hr 04/15/20 07:00 04/15/20 10:14 D5w IV 75 mls/hr DIRECT VALENTINA Administration Ondansetron HCl 4 mg 04/13/20 00:43 Ondansetron 4 Mg/2 Ml Inj IV Q8H PRN Nausea And Vomiting Oxycodone/Acetaminophen 1 tab 04/13/20 00:43 Oxycodone /Acetaminophen 5-325mg Tab PO Q6H PRN Pain, Moderate (4-6) Prednisone 5 mg 04/14/20 10:00 04/15/20 10:00 Prednisone 5 Mg Tab PO 5 mg QDAY VALENTINA Administration Sodium Chloride 10 ml 04/13/20 10:00 04/15/20 10:00 Sodium Chloride 0.9% 10 Ml Flush Syringe IV 10 ml BID VALENTINA Administration Sodium Chloride 10 ml 04/13/20 00:43 Sodium Chloride 0.9% 10 Ml Flush Syringe IV PRN PRN LINE FLUSH Tacrolimus 1.5 mg 04/15/20 11:00 04/15/20 11:00 Tacrolimus 0.5 Mg Cap PO 1.5 mg QAM VALENTINA Administration Tacrolimus 1 mg 04/15/20 22:00 Tacrolimus 0.5 Mg Cap PO QHS VALENTINA Vitamin B Complex/Vitamin C 1 each 04/14/20 10:00 04/15/20 10:00 B Complex W/Vitamin C Tab PO 1 each QDAY VALENTINA Administration
[2020-04-16] MEDS: DEXTROSE 5% IN WATER 1,000 ML IV SCH ×2 (05:49→21:50)
--- NOTE | 2020-04-16 08:23 | Progress Note ---
Assessment and Plan Assessment and plan: COVID-19 pneumonia Alzheimer's dementia. Renal transplant x2/chronic immunosuppressive therapy Leukopenia. Deconditioning. 04/16/2020. Await physical therapy evaluation for disposition/discharge. Patient at high risk for decompensation given immunosuppressive therapy/renal transplantation. History Interval history: The patient is a 79-year-old female with dementia, renal transplant x2, on chronic immunosuppressant therapy was admitted to the hospital with complaints of flank pain. She was noted to have a low-grade fever. Labs showed normal WBC initially, she has now developed some leukopenia. D-dimer was 2495, creatinine has normalized. Patient tested positive for COVID-19, hence infectious diseases was consulted. She has remained afebrile since hospitalization. Currently on room air. Procalcitonin was low at 0.14 No new issues overnight. Hospitalist Physical - Constitutional Vitals: Temp Pulse Resp BP Pulse Ox 97.4 F L 51 L 20 147/77 96 04/16/20 04:50 04/16/20 04:50 04/16/20 04:50 04/16/20 04:50 04/16/20 04:50 General appearance: Present: no acute distress, well-nourished, other (Somewhat cachectic appearing but 79 years old.) - EENT Eyes: Present: PERRL, EOM intact ENT: hearing intact, clear oral mucosa, dentition normal - Neck Neck: Present: supple, normal ROM - Respiratory Respiratory effort: normal Respiratory: bilateral: CTA - Cardiovascular Rhythm: regular Heart Sounds: Present: S1 & S2. Absent: gallop, rub - Extremities Extremities: no ischemia, No edema, Full ROM - Abdominal General gastrointestinal: soft, non-tender, non-distended, normal bowel sounds - Integumentary Integumentary: Present: clear, warm, dry - Neurologic Neurologic: CNII-XII intact, moves all extremities HEART Score - HEART Score Troponin: Troponin T < 0.010 ng/mL (0.00-0.029) 04/12/20 Unknown Results - Labs CBC & Chem 7: 04/14/20 04:53 04/15/20 07:23 Labs: Laboratory Last Values WBC 3.4 K/mm3 (4.5-11.0) L 04/14/20 04:53 RBC 4.08 M/mm3 (3.65-5.03) 04/14/20 04:53 Hgb 12.1 gm/dl (10.1-14.3) 04/14/20 04:53 Hct 37.1 % (30.3-42.9) 04/14/20 04:53 MCV 91 fl (79-97) 04/14/20 04:53 MCH 30 pg (28-32) 04/14/20 04:53 MCHC 33 % (30-34) 04/14/20 04:53 RDW 13.3 % (13.2-15.2) 04/14/20 04:53 Plt Count 151 K/mm3 (140-440) 04/14/20 04:53 Lymph % (Auto) 7.1 % (13.4-35.0) L 04/14/20 04:53 [place] % (Auto) 15.7 % (0.0-7.3) H 04/14/20 04:53 Eos % (Auto) 0.2 % (0.0-4.3) 04/14/20 04:53 Baso % (Auto) 0.2 % (0.0-1.8) 04/14/20 04:53 Lymph # (Auto) 0.2 K/mm3 (1.2-5.4) L 04/14/20 04:53 [place] # (Auto) 0.5 K/mm3 (0.0-0.8) 04/14/20 04:53 Eos # (Auto) 0.0 K/mm3 (0.0-0.4) 04/14/20 04:53 Baso # (Auto) 0.0 K/mm3 (0.0-0.1) 04/14/20 04:53 Add Manual Diff Complete 04/13/20 05:20 Total Counted 100 04/13/20 05:20 Seg Neutrophils % 76.8 % (40.0-70.0) H 04/14/20 04:53 Seg Neuts % (Manual) 83.0 % (40.0-70.0) H 04/13/20 05:20 Lymphocytes % (Manual) 3.0 % (13.4-35.0) L 04/13/20 05:20 Monocytes % (Manual) 14.0 % (0.0-7.3) H 04/13/20 05:20 Nucleated RBC % Not Reportable 04/13/20 05:20 Seg Neutrophils # 2.6 K/mm3 (1.8-7.7) 04/14/20 04:53 Seg Neutrophils # Man 3.7 K/mm3 (1.8-7.7) 04/13/20 05:20 Band Neutrophils # 0.0 K/mm3 04/13/20 05:20 Lymphocytes # (Manual) 0.1 K/mm3 (1.2-5.4) L 04/13/20 05:20 Abs React Lymphs (Man) 0.0 K/mm3 04/13/20 05:20 Monocytes # (Manual) 0.6 K/mm3 (0.0-0.8) 04/13/20 05:20 Eosinophils # (Manual) 0.0 K/mm3 (0.0-0.4) 04/13/20 05:20 Basophils # (Manual) 0.0 K/mm3 (0.0-0.1) 04/13/20 05:20 Metamyelocytes # 0.0 K/mm3 04/13/20 05:20 Myelocytes # 0.0 K/mm3 04/13/20 05:20 Promyelocytes # 0.0 K/mm3 04/13/20 05:20 Blast Cells # 0.0 K/mm3 04/13/20 05:20 WBC Morphology Not Reportable 04/13/20 05:20 Hypersegmented Neuts Not Reportable 04/13/20 05:20 Hyposegmented Neuts Not Reportable 04/13/20 05:20 Hypogranular Neuts Not Reportable 04/13/20 05:20 Smudge Cells Not Reportable 04/13/20 05:20 Toxic Granulation Not Reportable 04/13/20 05:20 Toxic Vacuolation Not Reportable 04/13/20 05:20 Dohle Bodies Not Reportable 04/13/20 05:20 Pelger-Huet Anomaly Not Reportable 04/13/20 05:20 Eric Rods Not Reportable 04/13/20 05:20 Platelet Estimate Consistent w auto 04/13/20 05:20 Clumped Platelets Not Reportable 04/13/20 05:20 Plt Clumps, EDTA Not Reportable 04/13/20 05:20 Large Platelets Not Reportable 04/13/20 05:20 Giant Platelets Not Reportable 04/13/20 05:20 Platelet Satelliting Not Reportable 04/13/20 05:20 Plt Morphology Comment Not Reportable 04/13/20 05:20 RBC Morphology Not Reportable 04/13/20 05:20 Dimorphic RBCs Not Reportable 04/13/20 05:20 Polychromasia Not Reportable 04/13/20 05:20 Hypochromasia Not Reportable 04/13/20 05:20 Poikilocytosis 1+ 04/13/20 05:20 Anisocytosis 1+ 04/13/20 05:20 Microcytosis Not Reportable 04/13/20 05:20 Macrocytosis Not Reportable 04/13/20 05:20 Spherocytes Not Reportable 04/13/20 05:20 Pappenheimer Bodies Not Reportable 04/13/20 05:20 Sickle Cells Not Reportable 04/13/20 05:20 Target Cells Not Reportable 04/13/20 05:20 Tear Drop Cells Not Reportable 04/13/20 05:20 Ovalocytes Not Reportable 04/13/20 05:20 Helmet Cells Not Reportable 04/13/20 05:20 Carter-Wray Bodies Not Reportable 04/13/20 05:20 [place] Rings Not Reportable 04/13/20 05:20 Lianna Cells 1+ 04/13/20 05:20 Bite Cells Not Reportable 04/13/20 05:20 Crenated Cell Not Reportable 04/13/20 05:20 Elliptocytes Not Reportable 04/13/20 05:20 Acanthocytes (Spur) Not Reportable 04/13/20 05:20 Rouleaux Not Reportable 04/13/20 05:20 Hemoglobin C Crystals Not Reportable 04/13/20 05:20 Schistocytes Not Reportable 04/13/20 05:20 Malaria parasites Not Reportable 04/13/20 05:20 Jordin Bodies Not Reportable 04/13/20 05:20 Hem Pathologist Commnt No 04/13/20 05:20 D-Dimer 2495.39 ng/mlDDU (0-234) H 04/12/20 17:00 Sodium 147 mmol/L (137-145) H 04/15/20 07:23 Potassium 3.6 mmol/L (3.6-5.0) 04/15/20 07:23 Chloride 118.5 mmol/L (98-107) H 04/15/20 07:23 Carbon Dioxide 23 mmol/L (22-30) 04/15/20 07:23 Anion Gap 9 mmol/L 04/15/20 07:23 BUN 22 mg/dL (7-17) H 04/15/20 07:23 Creatinine 0.9 mg/dL (0.6-1.2) 04/15/20 07:23 Estimated GFR > 60 ml/min 04/15/20 07:23 BUN/Creatinine Ratio 24 % 04/15/20 07:23 Glucose 87 mg/dL (65-100) 04/15/20 07:23 Hemoglobin A1c 6.2 % (4-6) H 04/13/20 05:20 Lactic Acid 2.50 mmol/L (0.7-2.0) H* 04/12/20 15:11 Calcium 8.2 mg/dL (8.4-10.2) L 04/15/20 07:23 Ferritin 1732.0 ng/mL (10.0-200.0) H 04/12/20 17:00 Total Bilirubin 0.70 mg/dL (0.1-1.2) 04/13/20 05:20 Direct Bilirubin 0.2 mg/dL (0-0.2) 04/12/20 Unknown Indirect Bilirubin 0.1 mg/dL 04/12/20 Unknown AST 49 units/L (5-40) H 04/13/20 05:20 ALT 57 units/L (7-56) H 04/13/20 05:20 Alkaline Phosphatase 67 units/L (35-129) 04/13/20 05:20 Lactate Dehydrogenase 428 units/L (91-180) H 04/12/20 17:00 Total Creatine Kinase 63 units/L (30-135) 04/13/20 19:02 Troponin T < 0.010 ng/mL (0.00-0.029) 04/12/20 Unknown C-Reactive Protein 5.60 mg/dL (0.00-1.30) H 04/12/20 17:00 Total Protein 5.2 g/dL (6.3-8.2) L 04/13/20 05:20 Albumin 3.0 g/dL (3.9-5) L 04/13/20 05:20 Albumin/Globulin Ratio 1.4 % 04/13/20 05:20 Procalcitonin 0.14 ng/mL (<0.15) 04/12/20 18:41 Urine Color Yellow (Yellow) 04/14/20 Unknown Urine Turbidity Clear (Clear) 04/14/20 Unknown Urine pH 6.0 (5.0-7.0) 04/14/20 Unknown Ur Specific [place] 1.024 (1.003-1.030) 04/14/20 Unknown Urine Protein <15 mg/dl mg/dL (Negative) 04/14/20 Unknown Urine Glucose (UA) 50 mg/dL (Negative) 04/14/20 Unknown Urine Ketones Neg mg/dL (Negative) 04/14/20 Unknown Urine Blood Neg (Negative) 04/14/20 Unknown Urine Nitrite Neg (Negative) 04/14/20 Unknown Urine Bilirubin Neg (Negative) 04/14/20 Unknown Urine Urobilinogen < 2.0 mg/dL (<2.0) 04/14/20 Unknown Ur Leukocyte Esterase Neg (Negative) 04/14/20 Unknown Urine WBC (Auto) 3.0 /HPF (0.0-6.0) 04/14/20 Unknown Urine RBC (Auto) < 1.0 /HPF (0.0-6.0) 04/14/20 Unknown U Epithel Cells (Auto) < 1.0 /HPF (0-13.0) 04/14/20 Unknown Urine Mucus Few /HPF 04/14/20 Unknown Coronavirus (PCR) Positive (Negative) A 04/13/20 Unknown Microbiology: Microbiology 04/12/20 13:54 Peripheral/Venous Blood Culture - Preliminary NO GROWTH AFTER 72 HOURS 04/12/20 00:21 Urine,Catheterized - Straight Catheter Urine Culture - Preliminary NO GROWTH AFTER 24 HOURS Johnson/IV: Voiding Method Diaper Active Medications - Current Medications Current Medications: Generic Name Dose Route Start Last Admin Trade Name Freq PRN Reason Stop Dose Admin Acetaminophen 650 mg 04/13/20 00:43 Acetaminophen 325 Mg Tab PO Q4H PRN Pain MILD(1-3)/Fever >100.5/CARTER Donepezil HCl 10 mg 04/14/20 10:00 04/15/20 10:00 Donepezil 10 Mg Tab PO 10 mg QDAY VALENTINA Administration Famotidine 10 mg 04/13/20 10:00 04/15/20 22:14 Famotidine 10 Mg Tab PO 10 mg BID VALENTINA Administration Heparin Sodium (Porcine) 5,000 unit 04/13/20 10:00 04/15/20 22:14 Heparin 5,000 Unit/1 Ml Vial SUB-Q 5,000 unit Q12HR VALENTINA Administration Hydromorphone HCl 0.25 mg 04/13/20 00:43 Hydromorphone 1 Mg/1 Ml Inj IV Q3H PRN Pain, Moderate (4-6) Ceftriaxone Sodium 2 gm in 100 mls @ 200 mls/hr 04/13/20 10:00 04/15/20 10:01 Rocephin/Ns 2 Gm/100 Ml IV 04/16/20 10:59 200 mls/hr Q24HR VALENTINA Administration Protocol Azithromycin 500 mg in 250 mls @ 250 mls/hr 04/13/20 10:00 04/15/20 10:01 Zithromax/Ns IV 04/16/20 10:59 250 mls/hr Q24HR VALENTINA Administration Dextrose 1,000 mls @ 75 mls/hr 04/15/20 07:00 04/16/20 05:49 D5w IV 75 mls/hr DIRECT VALENTINA Administration Ondansetron HCl 4 mg 04/13/20 00:43 Ondansetron 4 Mg/2 Ml Inj IV Q8H PRN Nausea And Vomiting Oxycodone/Acetaminophen 1 tab 04/13/20 00:43 Oxycodone /Acetaminophen 5-325mg Tab PO Q6H PRN Pain, Moderate (4-6) Prednisone 5 mg 04/14/20 10:00 04/15/20 10:00 Prednisone 5 Mg Tab PO 5 mg QDAY VALENTINA Administration Sodium Chloride 10 ml 04/13/20 10:00 04/15/20 22:15 Sodium Chloride 0.9% 10 Ml Flush Syringe IV 10 ml BID VALENTINA Administration Sodium Chloride 10 ml 04/13/20 00:43 Sodium Chloride 0.9% 10 Ml Flush Syringe IV PRN PRN LINE FLUSH Tacrolimus 1.5 mg 04/15/20 11:00 04/15/20 11:00 Tacrolimus 0.5 Mg Cap PO 1.5 mg QAM VALENTINA Administration Tacrolimus 1 mg 04/15/20 22:00 04/15/20 23:19 Tacrolimus 0.5 Mg Cap PO 1 mg QHS VALENTINA Administration Vitamin B Complex/Vitamin C 1 each 04/14/20 10:00 04/15/20 10:00 B Complex W/Vitamin C Tab PO 1 each QDAY VALENTINA Administration Nutrition/Malnutrition Assess - Dietary Evaluation Nutrition/Malnutrition Findings: Nutrition Notes Start: 04/13/20 14:08 Freq: Status: Active Protocol: Document 04/15/20 12:40 EN (Rec: 04/15/20 12:49 EN [id number]) Co-Sign 04/15/20 12:40 MK Nutrition Notes Initial or Follow up Reassessment Current Diagnosis Acute Kidney Injury,CKD(stage I-IV) Other Pertinent Diagnosis (L) flank pain, RLL pneu, FTT, COVID-19+, Dementia Current Diet Cardiac with mechanical soft Labs/Tests Na 147 BUN 22 Pertinent Medications D5w at 75mL/hr Prednisone Vitmain B Complex/Vitmain C Height 5 ft 4 in Weight 35.5 kg [facility] Body Weight (kg) 54.54 BMI 13.4 Weight Status Underweight Subjective/Other Information F/u for intakes, ONS and renal labs. Unable to reach pt by phone x3. Per RN, pt consuming 25% of meals. RN denies N/V/D . 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 No Is Patient Ambulatory and/or Out of Bed No REE-([facility]-confined to bed) 973.356 Kcal/Kg value to use for calculation 40 Approximate Energy Requirements Using 1420 kcal/Kg Calculation Used for Recommendations Kcal/kg Additional Notes Pro needs 1.2-1.5g/k-53g/ day Fluid: 500mL + output Nutrition Intervention Change Diet Order: Change to renal with mechanical soft Add Supplement/Snack (indicate name/kcal Nepro BID /protein ) Provides kCal: 850 Provides Protein (gm) 38 Goal #1 PO intake of meals plus ONS to meet 100% energy and pro needs Goal #2 Wt maintenance and/or gain Anticipated Discharge Needs: Renal diet with mechanical soft and ONS as needed Follow-Up By: 04/20/20 Additional Comments F/u for intakes and ONS tolerance
[2020-04-16] MEDS: AZITHROMYCIN/NS 500 MG/250 ML 500 MG/250 ML BAG IV SCH (09:42)
[2020-04-16] MEDS: FAMOTIDINE 10 MG TAB PO SCH ×2 (09:42→21:47)
[2020-04-16] MEDS: cefTRIAXone/NS 2 GM/100 ML 2 GM/100 ML BAG IV SCH (09:42)
[2020-04-16] MEDS: DONEPEZIL 10 MG TAB PO SCH (09:43)
[2020-04-16] MEDS: B COMPLEX W/VITAMIN C TAB PO SCH (09:43)
[2020-04-16] MEDS: HEPARIN 5,000 UNIT/1 ML VIAL SUB-Q SCH ×2 (09:43→21:47)
[2020-04-16] MEDS: predniSONE 5 MG TAB PO SCH (09:43)
[2020-04-16] MEDS: TACROLIMUS 0.5 MG CAP PO SCH ×2 (09:48→22:14)
--- NOTE | 2020-04-16 11:32 | Progress Note ---
Assessment and Plan Cultures: SARS CoV2 PCR: Positive Blood culture: No growth Urine culture: No growth A/P: 79-year-old female with dementia, renal transplant x 2, on chronic immunosuppressant therapy, bedbound status was admitted to the hospital with complaints of flank pain: #COVID-19: Not hypoxic. Bedbound status, cannot do ambulatory sats. #Renal transplant x2, chronic immunosuppressant therapy. UA not suggestive of a [place] UTI #Leucopenia: probably from meds v/s COVID-19. Recs: Continue supportive care for now, patient remains on room air hence no benefit with remdesivir or steroids at this time Procalcitonin low, antibiotics not needed Continue to monitor for hypoxia, patient being immunosuppressed is at risk of severe disease Galo Acuña MD, FACP [facility] O: [phone] F: [phone] Subjective Date of service: 04/16/20 Principal diagnosis: Covid pneumonia Interval history: Afebrile. Remains on room air. Objective - Exam Narrative Exam: Physical Exam (reviewed in chart to minimize risk of transmission) Constitutional: deferred Head, Ears, Nose: deferred Eyes: deferred Neck: deferred Oral: deferred Cardiovascular: deferred Respiratory: deferred GI: deferred Musculoskeletal: deferred Skin: deferred Hem/Lymphatic: deferred Psych: deferred Neurological: deferred - Constitutional Vitals: Vital Signs Temp Pulse Resp BP Pulse Ox 97.4 F L 51 L 20 147/77 96 04/16/20 04:50 04/16/20 04:50 04/16/20 04:50 04/16/20 04:50 04/16/20 04:50 Temperature -Last 24 Hours Temperature 97.4 F Temperature 98.7 F Temperature 99.2 F Temperature 98.6 F - Labs CBC & Chem 7: 04/14/20 04:53 04/15/20 07:23
--- NOTE | 2020-04-16 20:19 | Progress Note ---
Assessment and Plan Assessment CKD, status post transplant in 2010 Chronic immunosuppressant therapy Acute kidney injury Hyperkalemia Acidosis Covid positive Pneumonia Recommendations S/p IVF, continue PO hydration S/p kayexalate, now with K within acceptable range Continue immunosuppressant therapy ID note reviewed Renally dose medications Avoid nephrotoxins Keep MAP > 65 Strict I/O No indication for dialysis at this time Renal diet Subjective Date of service: 04/16/20 Principal diagnosis: Covid pneumonia Interval history: Respiratory status stable Patient is being followed for renal issues Nursing, interdisciplinary and consult notes were reviewed Vitals, input and output, medications and labs were reviewed Objective - Exam Narrative Exam: Deferred for PPE conservation and to prevent spread of infection - Vital Signs Vital signs: Vital Signs - 12hr 04/16/20 04/16/20 04/16/20 12:48 12:53 15:56 Temperature 97.2 F L 97.9 F Pulse Rate 58 L 75 46 L Respiratory 18 48 H Rate Blood Pressure 143/74 146/73 O2 Sat by Pulse 96 97 99 Oximetry - Lab 04/14/20 04:53 04/15/20 07:23 Most recent lab results Calcium 8.2 mg/dL (8.4-10.2) L 04/15/20 07:23 Medications & Allergies - Medications Allergies/Adverse Reactions: Allergies No Known Allergies Allergy (Verified 12/12/18 16:34) Home Medications: Home Medications Medication Instructions Recorded Confirmed Last Taken Type HYDROcodone/APAP 5-325 [[place] 1 each PO Q6HR PRN #15 tablet 12/12/18 04/15/20 Unknown Rx 5/325] Calcium Carbonate/Vitamin D3 1 each PO DAILY 04/13/20 04/15/20 Unknown History [Calcium 600 mg-D3 20 Mcg Tab] Levothyroxine Sodium 25 mcg PO Q24HR 04/13/20 04/13/20 Unknown History [Levothyroxine] Tacrolimus [Prograf] 0.5 mg PO Q12H 04/13/20 04/13/20 Unknown History Vitamin B Complex [B Complex] 1 each PO DAILY 04/13/20 04/13/20 Unknown History donepeziL [Aricept] 10 mg PO QHS 04/13/20 04/13/20 Unknown History predniSONE [Deltasone] 5 mg PO QDAY 04/13/20 04/13/20 Unknown History Active Medications: Generic Name Dose Route Start Last Admin Trade Name Freq PRN Reason Stop Dose Admin Acetaminophen 650 mg 04/13/20 00:43 Acetaminophen 325 Mg Tab PO Q4H PRN Pain MILD(1-3)/Fever >100.5/CARTER Donepezil HCl 10 mg 04/14/20 10:00 04/16/20 09:43 Donepezil 10 Mg Tab PO 10 mg QDAY VALENTINA Administration Famotidine 10 mg 04/13/20 10:00 04/16/20 09:42 Famotidine 10 Mg Tab PO 10 mg BID VALENTINA Administration Heparin Sodium (Porcine) 5,000 unit 04/13/20 10:00 04/16/20 09:43 Heparin 5,000 Unit/1 Ml Vial SUB-Q 5,000 unit Q12HR VALENTINA Administration Hydromorphone HCl 0.25 mg 04/13/20 00:43 Hydromorphone 1 Mg/1 Ml Inj IV Q3H PRN Pain, Moderate (4-6) Dextrose 1,000 mls @ 75 mls/hr 04/15/20 07:00 04/16/20 05:49 D5w IV 75 mls/hr DIRECT VALENTINA Administration Ondansetron HCl 4 mg 04/13/20 00:43 Ondansetron 4 Mg/2 Ml Inj IV Q8H PRN Nausea And Vomiting Oxycodone/Acetaminophen 1 tab 04/13/20 00:43 Oxycodone /Acetaminophen 5-325mg Tab PO Q6H PRN Pain, Moderate (4-6) Prednisone 5 mg 04/14/20 10:00 04/16/20 09:43 Prednisone 5 Mg Tab PO 5 mg QDAY VALENTINA Administration Sodium Chloride 10 ml 04/13/20 10:00 04/16/20 09:43 Sodium Chloride 0.9% 10 Ml Flush Syringe IV 10 ml BID VALENTINA Administration Sodium Chloride 10 ml 04/13/20 00:43 Sodium Chloride 0.9% 10 Ml Flush Syringe IV PRN PRN LINE FLUSH Tacrolimus 1.5 mg 04/15/20 11:00 04/16/20 09:48 Tacrolimus 0.5 Mg Cap PO 1.5 mg QAM VALENTINA Administration Tacrolimus 1 mg 04/15/20 22:00 04/15/20 23:19 Tacrolimus 0.5 Mg Cap PO 1 mg QHS VALENTINA Administration Vitamin B Complex/Vitamin C 1 each 04/14/20 10:00 04/16/20 09:43 B Complex W/Vitamin C Tab PO 1 each QDAY VALENTINA Administration
[2020-04-17] MEDS: B COMPLEX W/VITAMIN C TAB PO SCH ×2 (08:19→15:12)
[2020-04-17] MEDS: predniSONE 5 MG TAB PO SCH ×2 (08:19→15:15)
[2020-04-17] MEDS: HEPARIN 5,000 UNIT/1 ML VIAL SUB-Q SCH ×3 (08:19→23:20)
[2020-04-17] MEDS: FAMOTIDINE 10 MG TAB PO SCH ×3 (08:21→23:19)
[2020-04-17] MEDS: DONEPEZIL 10 MG TAB PO SCH ×2 (08:21→15:14)
[2020-04-17] MEDS: TACROLIMUS 0.5 MG CAP PO SCH ×3 (08:22→23:19)
--- NOTE | 2020-04-17 09:39 | Progress Note ---
Assessment and Plan Assessment and plan: COVID-19 pneumonia Alzheimer's dementia. Renal transplant x2/chronic immunosuppressive therapy Leukopenia. Deconditioning. 04/16/2020. Await physical therapy evaluation for disposition/discharge. Patient at high risk for decompensation given immunosuppressive therapy/renal transplantation. 04/17/2020. Order was placed for physical therapy evaluation on 04/15/2020 at 11 AM. Physical therapy reports not documented. Unsure physical therapy saw the patient. Obtain exercise pulse oximetry testing today. Patient currently resting on room air therefore no need for steroids or remdesivir at this time. I discussed the case with the nurse. Will discuss with case management discharge planning. History Interval history: The patient is a 79-year-old female with dementia, renal transplant x2, on chronic immunosuppressant therapy was admitted to the hospital with complaints of flank pain. She was noted to have a low-grade fever. Labs showed normal WBC initially, she has now developed some leukopenia. D-dimer was 2495, creatinine has normalized. Patient tested positive for COVID-19, hence infectious diseases was consulted. She has remained afebrile since hospitalization. Currently on room air. Procalcitonin was low at 0.14 No new issues overnight. Hospitalist Physical - Constitutional Vitals: Temp Pulse Resp BP Pulse Ox 97.8 F 48 L 20 121/65 98 04/17/20 06:24 04/17/20 06:24 04/17/20 06:24 04/17/20 06:24 04/17/20 06:24 General appearance: Present: no acute distress, well-nourished, other (Somewhat cachectic appearing but 79 years old.) - EENT Eyes: Present: PERRL, EOM intact ENT: hearing intact, clear oral mucosa, dentition normal - Neck Neck: Present: supple, normal ROM - Respiratory Respiratory effort: normal Respiratory: bilateral: CTA - Cardiovascular Rhythm: regular Heart Sounds: Present: S1 & S2. Absent: gallop, rub - Extremities Extremities: no ischemia, No edema, Full ROM - Abdominal General gastrointestinal: soft, non-tender, non-distended, normal bowel sounds - Integumentary Integumentary: Present: clear, warm, dry - Neurologic Neurologic: CNII-XII intact, moves all extremities HEART Score - HEART Score Troponin: Troponin T < 0.010 ng/mL (0.00-0.029) 04/12/20 Unknown Results - Labs CBC & Chem 7: 04/14/20 04:53 04/15/20 07:23 Labs: Laboratory Last Values WBC 3.4 K/mm3 (4.5-11.0) L 04/14/20 04:53 RBC 4.08 M/mm3 (3.65-5.03) 04/14/20 04:53 Hgb 12.1 gm/dl (10.1-14.3) 04/14/20 04:53 Hct 37.1 % (30.3-42.9) 04/14/20 04:53 MCV 91 fl (79-97) 04/14/20 04:53 MCH 30 pg (28-32) 04/14/20 04:53 MCHC 33 % (30-34) 04/14/20 04:53 RDW 13.3 % (13.2-15.2) 04/14/20 04:53 Plt Count 151 K/mm3 (140-440) 04/14/20 04:53 Lymph % (Auto) 7.1 % (13.4-35.0) L 04/14/20 04:53 [place] % (Auto) 15.7 % (0.0-7.3) H 04/14/20 04:53 Eos % (Auto) 0.2 % (0.0-4.3) 04/14/20 04:53 Baso % (Auto) 0.2 % (0.0-1.8) 04/14/20 04:53 Lymph # (Auto) 0.2 K/mm3 (1.2-5.4) L 04/14/20 04:53 [place] # (Auto) 0.5 K/mm3 (0.0-0.8) 04/14/20 04:53 Eos # (Auto) 0.0 K/mm3 (0.0-0.4) 04/14/20 04:53 Baso # (Auto) 0.0 K/mm3 (0.0-0.1) 04/14/20 04:53 Add Manual Diff Complete 04/13/20 05:20 Total Counted 100 04/13/20 05:20 Seg Neutrophils % 76.8 % (40.0-70.0) H 04/14/20 04:53 Seg Neuts % (Manual) 83.0 % (40.0-70.0) H 04/13/20 05:20 Lymphocytes % (Manual) 3.0 % (13.4-35.0) L 04/13/20 05:20 Monocytes % (Manual) 14.0 % (0.0-7.3) H 04/13/20 05:20 Nucleated RBC % Not Reportable 04/13/20 05:20 Seg Neutrophils # 2.6 K/mm3 (1.8-7.7) 04/14/20 04:53 Seg Neutrophils # Man 3.7 K/mm3 (1.8-7.7) 04/13/20 05:20 Band Neutrophils # 0.0 K/mm3 04/13/20 05:20 Lymphocytes # (Manual) 0.1 K/mm3 (1.2-5.4) L 04/13/20 05:20 Abs React Lymphs (Man) 0.0 K/mm3 04/13/20 05:20 Monocytes # (Manual) 0.6 K/mm3 (0.0-0.8) 04/13/20 05:20 Eosinophils # (Manual) 0.0 K/mm3 (0.0-0.4) 04/13/20 05:20 Basophils # (Manual) 0.0 K/mm3 (0.0-0.1) 04/13/20 05:20 Metamyelocytes # 0.0 K/mm3 04/13/20 05:20 Myelocytes # 0.0 K/mm3 04/13/20 05:20 Promyelocytes # 0.0 K/mm3 04/13/20 05:20 Blast Cells # 0.0 K/mm3 04/13/20 05:20 WBC Morphology Not Reportable 04/13/20 05:20 Hypersegmented Neuts Not Reportable 04/13/20 05:20 Hyposegmented Neuts Not Reportable 04/13/20 05:20 Hypogranular Neuts Not Reportable 04/13/20 05:20 Smudge Cells Not Reportable 04/13/20 05:20 Toxic Granulation Not Reportable 04/13/20 05:20 Toxic Vacuolation Not Reportable 04/13/20 05:20 Dohle Bodies Not Reportable 04/13/20 05:20 Pelger-Huet Anomaly Not Reportable 04/13/20 05:20 Eric Rods Not Reportable 04/13/20 05:20 Platelet Estimate Consistent w auto 04/13/20 05:20 Clumped Platelets Not Reportable 04/13/20 05:20 Plt Clumps, EDTA Not Reportable 04/13/20 05:20 Large Platelets Not Reportable 04/13/20 05:20 Giant Platelets Not Reportable 04/13/20 05:20 Platelet Satelliting Not Reportable 04/13/20 05:20 Plt Morphology Comment Not Reportable 04/13/20 05:20 RBC Morphology Not Reportable 04/13/20 05:20 Dimorphic RBCs Not Reportable 04/13/20 05:20 Polychromasia Not Reportable 04/13/20 05:20 Hypochromasia Not Reportable 04/13/20 05:20 Poikilocytosis 1+ 04/13/20 05:20 Anisocytosis 1+ 04/13/20 05:20 Microcytosis Not Reportable 04/13/20 05:20 Macrocytosis Not Reportable 04/13/20 05:20 Spherocytes Not Reportable 04/13/20 05:20 Pappenheimer Bodies Not Reportable 04/13/20 05:20 Sickle Cells Not Reportable 04/13/20 05:20 Target Cells Not Reportable 04/13/20 05:20 Tear Drop Cells Not Reportable 04/13/20 05:20 Ovalocytes Not Reportable 04/13/20 05:20 Helmet Cells Not Reportable 04/13/20 05:20 Carter-Trinity Bodies Not Reportable 04/13/20 05:20 [place] Rings Not Reportable 04/13/20 05:20 Lianna Cells 1+ 04/13/20 05:20 Bite Cells Not Reportable 04/13/20 05:20 Crenated Cell Not Reportable 04/13/20 05:20 Elliptocytes Not Reportable 04/13/20 05:20 Acanthocytes (Spur) Not Reportable 04/13/20 05:20 Rouleaux Not Reportable 04/13/20 05:20 Hemoglobin C Crystals Not Reportable 04/13/20 05:20 Schistocytes Not Reportable 04/13/20 05:20 Malaria parasites Not Reportable 04/13/20 05:20 Jordin Bodies Not Reportable 04/13/20 05:20 Hem Pathologist Commnt No 04/13/20 05:20 D-Dimer 2495.39 ng/mlDDU (0-234) H 04/12/20 17:00 Sodium 147 mmol/L (137-145) H 04/15/20 07:23 Potassium 3.6 mmol/L (3.6-5.0) 04/15/20 07:23 Chloride 118.5 mmol/L (98-107) H 04/15/20 07:23 Carbon Dioxide 23 mmol/L (22-30) 04/15/20 07:23 Anion Gap 9 mmol/L 04/15/20 07:23 BUN 22 mg/dL (7-17) H 04/15/20 07:23 Creatinine 0.9 mg/dL (0.6-1.2) 04/15/20 07:23 Estimated GFR > 60 ml/min 04/15/20 07:23 BUN/Creatinine Ratio 24 % 04/15/20 07:23 Glucose 87 mg/dL (65-100) 04/15/20 07:23 Hemoglobin A1c 6.2 % (4-6) H 04/13/20 05:20 Lactic Acid 2.50 mmol/L (0.7-2.0) H* 04/12/20 15:11 Calcium 8.2 mg/dL (8.4-10.2) L 04/15/20 07:23 Ferritin 1732.0 ng/mL (10.0-200.0) H 04/12/20 17:00 Total Bilirubin 0.70 mg/dL (0.1-1.2) 04/13/20 05:20 Direct Bilirubin 0.2 mg/dL (0-0.2) 04/12/20 Unknown Indirect Bilirubin 0.1 mg/dL 04/12/20 Unknown AST 49 units/L (5-40) H 04/13/20 05:20 ALT 57 units/L (7-56) H 04/13/20 05:20 Alkaline Phosphatase 67 units/L (35-129) 04/13/20 05:20 Lactate Dehydrogenase 428 units/L (91-180) H 04/12/20 17:00 Total Creatine Kinase 63 units/L (30-135) 04/13/20 19:02 Troponin T < 0.010 ng/mL (0.00-0.029) 04/12/20 Unknown C-Reactive Protein 5.60 mg/dL (0.00-1.30) H 04/12/20 17:00 Total Protein 5.2 g/dL (6.3-8.2) L 04/13/20 05:20 Albumin 3.0 g/dL (3.9-5) L 04/13/20 05:20 Albumin/Globulin Ratio 1.4 % 04/13/20 05:20 Procalcitonin 0.14 ng/mL (<0.15) 04/12/20 18:41 Urine Color Yellow (Yellow) 04/14/20 Unknown Urine Turbidity Clear (Clear) 04/14/20 Unknown Urine pH 6.0 (5.0-7.0) 04/14/20 Unknown Ur Specific Pease 1.024 (1.003-1.030) 04/14/20 Unknown Urine Protein <15 mg/dl mg/dL (Negative) 04/14/20 Unknown Urine Glucose (UA) 50 mg/dL (Negative) 04/14/20 Unknown Urine Ketones Neg mg/dL (Negative) 04/14/20 Unknown Urine Blood Neg (Negative) 04/14/20 Unknown Urine Nitrite Neg (Negative) 04/14/20 Unknown Urine Bilirubin Neg (Negative) 04/14/20 Unknown Urine Urobilinogen < 2.0 mg/dL (<2.0) 04/14/20 Unknown Ur Leukocyte Esterase Neg (Negative) 04/14/20 Unknown Urine WBC (Auto) 3.0 /HPF (0.0-6.0) 04/14/20 Unknown Urine RBC (Auto) < 1.0 /HPF (0.0-6.0) 04/14/20 Unknown U Epithel Cells (Auto) < 1.0 /HPF (0-13.0) 04/14/20 Unknown Urine Mucus Few /HPF 04/14/20 Unknown Coronavirus (PCR) Positive (Negative) A 04/13/20 Unknown Microbiology: Microbiology 04/12/20 13:54 Peripheral/Venous Blood Culture - Preliminary NO GROWTH AFTER 4 DAYS 04/12/20 00:21 Urine,Catheterized - Straight Catheter Urine Culture - Final NO GROWTH AFTER 48 HOURS Johnson/IV: Voiding Method Urinal Active Medications - Current Medications Current Medications: Generic Name Dose Route Start Last Admin Trade Name Freq PRN Reason Stop Dose Admin Acetaminophen 650 mg 04/13/20 00:43 Acetaminophen 325 Mg Tab PO Q4H PRN Pain MILD(1-3)/Fever >100.5/CARTER Donepezil HCl 10 mg 04/14/20 10:00 04/17/20 08:21 Donepezil 10 Mg Tab PO 10 mg QDAY [facility]ENTINA Administration Famotidine 10 mg 04/13/20 10:00 04/17/20 08:21 Famotidine 10 Mg Tab PO 10 mg BID VALENTINA Administration Heparin Sodium (Porcine) 5,000 unit 04/13/20 10:00 04/17/20 08:19 Heparin 5,000 Unit/1 Ml Vial SUB-Q 5,000 unit Q12HR VALENTINA Administration Hydromorphone HCl 0.25 mg 04/13/20 00:43 Hydromorphone 1 Mg/1 Ml Inj IV Q3H PRN Pain, Moderate (4-6) Dextrose 1,000 mls @ 75 mls/hr 04/15/20 07:00 04/16/20 21:50 D5w IV 75 mls/hr DIRECT [facility]ENTINA Administration Ondansetron HCl 4 mg 04/13/20 00:43 Ondansetron 4 Mg/2 Ml Inj IV Q8H PRN Nausea And Vomiting Oxycodone/Acetaminophen 1 tab 04/13/20 00:43 Oxycodone /Acetaminophen 5-325mg Tab PO Q6H PRN Pain, Moderate (4-6) Prednisone 5 mg 04/14/20 10:00 04/17/20 08:19 Prednisone 5 Mg Tab PO 5 mg QDAY VALENTINA Administration Sodium Chloride 10 ml 04/13/20 10:00 04/17/20 08:21 Sodium Chloride 0.9% 10 Ml Flush Syringe IV 10 ml BID VAL[facility]INA Administration Sodium Chloride 10 ml 04/13/20 00:43 Sodium Chloride 0.9% 10 Ml Flush Syringe IV PRN PRN LINE FLUSH Tacrolimus 1.5 mg 04/15/20 11:00 04/17/20 08:22 Tacrolimus 0.5 Mg Cap PO 1.5 mg QAM VALENTINA Administration Tacrolimus 1 mg 04/15/20 22:00 04/16/20 22:14 Tacrolimus 0.5 Mg Cap PO 1 mg QHS VALENTINA Administration Vitamin B Complex/Vitamin C 1 each 04/14/20 10:00 04/17/20 08:19 B Complex W/Vitamin C Tab PO 1 each QDAY VALENTINA Administration Nutrition/Malnutrition Assess - Dietary Evaluation Nutrition/Malnutrition Findings: Nutrition Notes Start: 04/13/20 14:08 Freq: Status: Active Protocol: Document 04/15/20 12:40 EN (Rec: 04/15/20 12:49 EN [id number]) Co-Sign 04/15/20 12:40 MK Nutrition Notes Initial or Follow up Reassessment Current Diagnosis Acute Kidney Injury,CKD(stage I-IV) Other Pertinent Diagnosis (L) flank pain, RLL pneu, FTT, COVID-19+, Dementia Current Diet Cardiac with mechanical soft Labs/Tests Na 147 BUN 22 Pertinent Medications D5w at 75mL/hr Prednisone Vitmain B Complex/Vitmain C Height 5 ft 4 in Weight 35.5 kg [place] Body Weight (kg) 54.54 BMI 13.4 Weight Status Underweight Subjective/Other Information F/u for intakes, ONS and renal labs. Unable to reach pt by phone x3. Per RN, pt consuming 25% of meals. RN denies N/V/D . 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 No Is Patient Ambulatory and/or Out of Bed No REE-([place]-confined to bed) [phone] Kcal/Kg value to use for calculation 40 Approximate Energy Requirements Using 1420 kcal/Kg Calculation Used for Recommendations Kcal/kg Additional Notes Pro needs 1.2-1.5g/k-53g/ day Fluid: 500mL + output Nutrition Intervention Change Diet Order: Change to renal with mechanical soft Add Supplement/Snack (indicate name/kcal Nepro BID /protein ) Provides kCal: 850 Provides Protein (gm) 38 Goal #1 PO intake of meals plus ONS to meet 100% energy and pro needs Goal #2 Wt maintenance and/or gain Anticipated Discharge Needs: Renal diet with mechanical soft and ONS as needed Follow-Up By: 04/20/20 Additional Comments F/u for intakes and ONS tolerance
--- NOTE | 2020-04-17 15:04 | Consultation ---
History of Present Illness Consult date: 04/17/20 Consult reason: bradycardia History of present illness: The patient is a 79-year-old female with dementia, renal transplant x2 who was admitted to the hospital with COVID 19 pneumonia. Cardiology is being consulted due to intermittent sinus bradycardia which appears to mostly happen at night. ECG on 04/12/20 revealed sinus tachycardia, LAFB, possible prior anterior ME Past History Past Medical History: renal failure Medications and Allergies Allergies Allergy/AdvReac Type Severity Reaction Status Date / Time No Known Allergies Allergy Verified 12/12/18 16:34 Home Medications Medication Instructions Recorded Confirmed Last Taken Type HYDROcodone/APAP 5-325 [[place] 1 each PO Q6HR PRN #15 tablet 12/12/18 04/15/20 Unknown Rx 5/325] Calcium Carbonate/Vitamin D3 1 each PO DAILY 04/13/20 04/15/20 Unknown History [Calcium 600 mg-D3 20 Mcg Tab] Levothyroxine Sodium 25 mcg PO Q24HR 04/13/20 04/13/20 Unknown History [Levothyroxine] Tacrolimus [Prograf] 0.5 mg PO Q12H 04/13/20 04/13/20 Unknown History Vitamin B Complex [B Complex] 1 each PO DAILY 04/13/20 04/13/20 Unknown History donepeziL [Aricept] 10 mg PO QHS 04/13/20 04/13/20 Unknown History predniSONE [Deltasone] 5 mg PO QDAY 04/13/20 04/13/20 Unknown History Active Meds: Active Medications Acetaminophen (Acetaminophen 325 Mg Tab) 650 mg PO Q4H PRN PRN Reason: Pain MILD(1-3)/Fever >100.5/CARTER Donepezil HCl (Donepezil 10 Mg Tab) 10 mg PO QDAY [facility] Last Admin: 04/17/20 08:21 Dose: 10 mg Documented by: Famotidine (Famotidine 10 Mg Tab) 10 mg PO BID [facility] Last Admin: 04/17/20 08:21 Dose: 10 mg Documented by: Heparin Sodium (Porcine) (Heparin 5,000 Unit/1 Ml Vial) 5,000 unit SUB-Q Q12HR [facility] Last Admin: 04/17/20 08:19 Dose: 5,000 unit Documented by: Hydromorphone HCl (Hydromorphone 1 Mg/1 Ml Inj) 0.25 mg IV Q3H PRN PRN Reason: Pain, Moderate (4-6) Dextrose (D5w) 1,000 mls @ 75 mls/hr IV DIRECT [facility] Last Admin: 04/16/20 21:50 Dose: 75 mls/hr Documented by: Ondansetron HCl (Ondansetron 4 Mg/2 Ml Inj) 4 mg IV Q8H PRN PRN Reason: Nausea And Vomiting Oxycodone/Acetaminophen (Oxycodone /Acetaminophen 5-325mg Tab) 1 tab PO Q6H PRN PRN Reason: Pain, Moderate (4-6) Prednisone (Prednisone 5 Mg Tab) 5 mg PO QDAY [facility] Last Admin: 04/17/20 08:19 Dose: 5 mg Documented by: Sodium Chloride (Sodium Chloride 0.9% 10 Ml Flush Syringe) 10 ml IV BID [facility] Last Admin: 04/17/20 08:21 Dose: 10 ml Documented by: Sodium Chloride (Sodium Chloride 0.9% 10 Ml Flush Syringe) 10 ml IV PRN PRN PRN Reason: LINE FLUSH Tacrolimus (Tacrolimus 0.5 Mg Cap) 1.5 mg PO QAM [facility] Last Admin: 04/17/20 08:22 Dose: 1.5 mg Documented by: Tacrolimus (Tacrolimus 0.5 Mg Cap) 1 mg PO QHS [facility] Last Admin: 04/16/20 22:14 Dose: 1 mg Documented by: Vitamin B Complex/Vitamin C (B Complex W/Vitamin C Tab) 1 each PO QDAY [facility] Last Admin: 04/17/20 08:19 Dose: 1 each Documented by: Review of Systems All systems: negative (per hpi) Physical Examination Vital Signs Pulse Resp BP Pulse Ox 79 16 142/70 94 04/12/20 11:18 04/12/20 11:18 04/12/20 11:18 04/12/20 11:18 Narrative exam: Not personally examined to minimize infection transmission Results 04/14/20 04:53 04/15/20 07:23 Assessment and Plan Asymptomatic sinus bradycardia: Heart rates mostly in 40s-50s COVID 19 pneumonia Dementia H/O Renal transplant Recommend: Continue treatment of COVID per primary team No specific intervention necessary for asymptomatic sinus bradycardia
--- NOTE | 2020-04-17 19:38 | Progress Note ---
Assessment and Plan Assessment CKD, status post transplant in 2010 Chronic immunosuppressant therapy Acute kidney injury Hyperkalemia Acidosis Covid positive Pneumonia Recommendations S/p IVF, continue PO hydration S/p kayexalate, now with K within acceptable range Continue immunosuppressant therapy ID note reviewed Cardiology note reviewed Renally dose medications Avoid nephrotoxins Keep MAP > 65 Strict I/O No indication for dialysis at this time Renal diet Subjective Date of service: 04/17/20 Principal diagnosis: Covid pneumonia Interval history: Bradycardia noted Patient is being followed for renal issues Nursing, interdisciplinary and consult notes were reviewed Vitals, input and output, medications and labs were reviewed Objective - Exam Narrative Exam: Deferred for PPE conservation and to prevent spread of infection - Vital Signs Vital signs: Vital Signs - 12hr 04/17/20 04/17/20 04/17/20 10:00 11:38 17:45 Temperature 98.3 F 98.4 F Pulse Rate 66 63 Respiratory 18 18 Rate Blood Pressure 128/86 129/79 O2 Sat by Pulse 100 100 99 Oximetry - Lab 04/14/20 04:53 04/15/20 07:23 Most recent lab results Calcium 8.2 mg/dL (8.4-10.2) L 04/15/20 07:23 Medications & Allergies - Medications Allergies/Adverse Reactions: Allergies No Known Allergies Allergy (Verified 12/12/18 16:34) Home Medications: Home Medications Medication Instructions Recorded Confirmed Last Taken Type HYDROcodone/APAP 5-325 [[place] 1 each PO Q6HR PRN #15 tablet 12/12/18 04/15/20 Unknown Rx 5/325] Calcium Carbonate/Vitamin D3 1 each PO DAILY 04/13/20 04/15/20 Unknown History [Calcium 600 mg-D3 20 Mcg Tab] Levothyroxine Sodium 25 mcg PO Q24HR 04/13/20 04/13/20 Unknown History [Levothyroxine] Tacrolimus [Prograf] 0.5 mg PO Q12H 04/13/20 04/13/20 Unknown History Vitamin B Complex [B Complex] 1 each PO DAILY 04/13/20 04/13/20 Unknown History donepeziL [Aricept] 10 mg PO QHS 04/13/20 04/13/20 Unknown History predniSONE [Deltasone] 5 mg PO QDAY 04/13/20 04/13/20 Unknown History Active Medications: Generic Name Dose Route Start Last Admin Trade Name Freq PRN Reason Stop Dose Admin Acetaminophen 650 mg 04/13/20 00:43 Acetaminophen 325 Mg Tab PO Q4H PRN Pain MILD(1-3)/Fever >100.5/CARTER Donepezil HCl 10 mg 04/14/20 10:00 04/17/20 15:14 Donepezil 10 Mg Tab PO Not Given QDAY VALENTINA Famotidine 10 mg 04/13/20 10:00 04/17/20 15:16 Famotidine 10 Mg Tab PO Not Given BID [facility] Heparin Sodium (Porcine) 5,000 unit 04/13/20 10:00 04/17/20 15:15 Heparin 5,000 Unit/1 Ml Vial SUB-Q Not Given Q12HR [facility] Hydromorphone HCl 0.25 mg 04/13/20 00:43 Hydromorphone 1 Mg/1 Ml Inj IV Q3H PRN Pain, Moderate (4-6) Dextrose 1,000 mls @ 75 mls/hr 04/15/20 07:00 04/16/20 21:50 D5w IV 75 mls/hr DIRECT VALENTINA Administration Ondansetron HCl 4 mg 04/13/20 00:43 Ondansetron 4 Mg/2 Ml Inj IV Q8H PRN Nausea And Vomiting Oxycodone/Acetaminophen 1 tab 04/13/20 00:43 Oxycodone /Acetaminophen 5-325mg Tab PO Q6H PRN Pain, Moderate (4-6) Prednisone 5 mg 04/14/20 10:00 04/17/20 15:15 Prednisone 5 Mg Tab PO Not Given QDAY [facility] Sodium Chloride 10 ml 04/13/20 10:00 04/17/20 15:16 Sodium Chloride 0.9% 10 Ml Flush Syringe IV Not Given BID VALENTINA Sodium Chloride 10 ml 04/13/20 00:43 Sodium Chloride 0.9% 10 Ml Flush Syringe IV PRN PRN LINE FLUSH Tacrolimus 1.5 mg 04/15/20 11:00 04/17/20 15:16 Tacrolimus 0.5 Mg Cap PO Not Given QAM VALENTINA Tacrolimus 1 mg 04/15/20 22:00 04/16/20 22:14 Tacrolimus 0.5 Mg Cap PO 1 mg QHS VALENTINA Administration Vitamin B Complex/Vitamin C 1 each 04/14/20 10:00 04/17/20 15:12 B Complex W/Vitamin C Tab PO Not Given QDAY [facility]INA
[2020-04-17] MEDS: DEXTROSE 5% IN WATER 1,000 ML IV SCH (23:20)
[2020-04-18 05:53] LABS: Hematocrit 36.7 % (30.3-42.9); Mean Corpuscular HGB Conc 33 % (30-34); Mean Corpuscular Volume 91 fl (79-97); Platelet Count 137 K/mm3 (140-440); Red Blood Count 4.05 M/mm3 (3.65-5.03); Red Cell Distribution Width 13.2 % (13.2-15.2)
[2020-04-18 06:09] LABS: BUN/Creatinine Ratio 13; Blood Urea Nitrogen 12 mg/dL (7-17); Calcium 8.8 mg/dL (8.4-10.2); Hemolysis Index 4
[2020-04-18 07:54] LABS: Total Cells Counted 100
[2020-04-18 07:55] LABS: Anisocytosis 1+; Platelet Estimate Consistent w Auto
--- NOTE | 2020-04-18 08:13 | Progress Note ---
Assessment and Plan Assessment and plan: COVID-19 pneumonia Alzheimer's dementia. Renal transplant x2/chronic immunosuppressive therapy Leukopenia. Deconditioning. 04/16/2020. Await physical therapy evaluation for disposition/discharge. Patient at high risk for decompensation given immunosuppressive therapy/renal transplantation. 04/17/2020. Order was placed for physical therapy evaluation on 04/15/2020 at 11 AM. Physical therapy reports not documented. Unsure physical therapy saw the patient. Obtain exercise pulse oximetry testing today. Patient currently resting on room air therefore no need for steroids or remdesivir at this time. I discussed the case with the nurse. Will discuss with case management discharge planning. 04/18/2020. No specific intervention necessary for asymptomatic sinus bradycardia. Order was placed for physical therapy evaluation on 04/15/2020 at 11 AM. Physical therapy reports not documented. Nurse reported max assistance with the patient. Case management reports patient to return home with sister. However, sister iss 77 years old and unable to likely care for sister at this time. Also, sisiter has no room currently to quarantine pt with house size. D/W CM d/c plan. History Interval history: The patient is a 79-year-old female with dementia, renal transplant x2, on chronic immunosuppressant therapy was admitted to the hospital with complaints of flank pain. She was noted to have a low-grade fever. Labs showed normal WBC initially, she has now developed some leukopenia. D-dimer was 2495, creatinine has normalized. Patient tested positive for COVID-19, hence infectious diseases was consulted. She has remained afebrile since hospitalization. Currently on room air. Procalcitonin was low at 0.14 No new issues overnight. Hospitalist Physical - Constitutional Vitals: Temp Pulse Resp BP Pulse Ox 98.5 F 59 L 20 133/87 97 04/18/20 04:44 04/18/20 04:44 04/18/20 04:44 04/18/20 04:44 04/18/20 04:44 General appearance: Present: no acute distress, well-nourished, other (Somewhat cachectic appearing but 79 years old.) - EENT Eyes: Present: PERRL, EOM intact ENT: hearing intact, clear oral mucosa, dentition normal - Neck Neck: Present: supple, normal ROM - Respiratory Respiratory effort: normal Respiratory: bilateral: CTA - Cardiovascular Rhythm: regular Heart Sounds: Present: S1 & S2. Absent: gallop, rub - Extremities Extremities: no ischemia, No edema, Full ROM - Abdominal General gastrointestinal: soft, non-tender, non-distended, normal bowel sounds - Integumentary Integumentary: Present: clear, warm, dry - Neurologic Neurologic: CNII-XII intact, moves all extremities HEART Score - HEART Score Troponin: Troponin T < 0.010 ng/mL (0.00-0.029) 04/12/20 Unknown Results - Labs CBC & Chem 7: 04/18/20 05:04 04/18/20 05:04 Labs: Laboratory Last Values WBC 3.1 K/mm3 (4.5-11.0) L 04/18/20 05:04 RBC 4.05 M/mm3 (3.65-5.03) 04/18/20 05:04 Hgb 12.0 gm/dl (10.1-14.3) 04/18/20 05:04 Hct 36.7 % (30.3-42.9) 04/18/20 05:04 MCV 91 fl (79-97) 04/18/20 05:04 MCH 30 pg (28-32) 04/18/20 05:04 MCHC 33 % (30-34) 04/18/20 05:04 RDW 13.2 % (13.2-15.2) 04/18/20 05:04 Plt Count 137 K/mm3 (140-440) L 04/18/20 05:04 Lymph % (Auto) 7.1 % (13.4-35.0) L 04/14/20 04:53 Dickson % (Auto) Manager Rehab 04/18/20 05:04 Eos % (Auto) 0.2 % (0.0-4.3) 04/14/20 04:53 Baso % (Auto) 0.2 % (0.0-1.8) 04/14/20 04:53 Lymph # (Auto) 0.2 K/mm3 (1.2-5.4) L 04/14/20 04:53 Dickson # (Auto) 0.5 K/mm3 (0.0-0.8) 04/14/20 04:53 Eos # (Auto) 0.0 K/mm3 (0.0-0.4) 04/14/20 04:53 Baso # (Auto) 0.0 K/mm3 (0.0-0.1) 04/14/20 04:53 Add Manual Diff Complete 04/18/20 05:04 Total Counted 100 04/18/20 05:04 Seg Neutrophils % 76.8 % (40.0-70.0) H 04/14/20 04:53 Seg Neuts % (Manual) 81.0 % (40.0-70.0) H 04/18/20 05:04 Lymphocytes % (Manual) 8.0 % (13.4-35.0) L 04/18/20 05:04 Monocytes % (Manual) 11.0 % (0.0-7.3) H 04/18/20 05:04 Nucleated RBC % Not Reportable 04/18/20 05:04 Seg Neutrophils # 2.6 K/mm3 (1.8-7.7) 04/14/20 04:53 Seg Neutrophils # Man 2.5 K/mm3 (1.8-7.7) 04/18/20 05:04 Band Neutrophils # 0.0 K/mm3 04/18/20 05:04 Lymphocytes # (Manual) 0.2 K/mm3 (1.2-5.4) L 04/18/20 05:04 Abs React Lymphs (Man) 0.0 K/mm3 04/18/20 05:04 Monocytes # (Manual) 0.3 K/mm3 (0.0-0.8) 04/18/20 05:04 Eosinophils # (Manual) 0.0 K/mm3 (0.0-0.4) 04/18/20 05:04 Basophils # (Manual) 0.0 K/mm3 (0.0-0.1) 04/18/20 05:04 Metamyelocytes # 0.0 K/mm3 04/18/20 05:04 Myelocytes # 0.0 K/mm3 04/18/20 05:04 Promyelocytes # 0.0 K/mm3 04/18/20 05:04 Blast Cells # 0.0 K/mm3 04/18/20 05:04 WBC Morphology Not Reportable 04/18/20 05:04 Hypersegmented Neuts Not Reportable 04/18/20 05:04 Hyposegmented Neuts Not Reportable 04/18/20 05:04 Hypogranular Neuts Not Reportable 04/18/20 05:04 Smudge Cells Not Reportable 04/18/20 05:04 Toxic Granulation Not Reportable 04/18/20 05:04 Toxic Vacuolation Not Reportable 04/18/20 05:04 Dohle Bodies Not Reportable 04/18/20 05:04 Pelger-Huet Anomaly Not Reportable 04/18/20 05:04 Eric Rods Not Reportable 04/18/20 05:04 Platelet Estimate Consistent w auto 04/18/20 05:04 Clumped Platelets Not Reportable 04/18/20 05:04 Plt Clumps, EDTA Not Reportable 04/18/20 05:04 Large Platelets Not Reportable 04/18/20 05:04 Giant Platelets Not Reportable 04/18/20 05:04 Platelet Satelliting Not Reportable 04/18/20 05:04 Plt Morphology Comment Not Reportable 04/18/20 05:04 RBC Morphology Not Reportable 04/18/20 05:04 Dimorphic RBCs Not Reportable 04/18/20 05:04 Polychromasia Not Reportable 04/18/20 05:04 Hypochromasia Not Reportable 04/18/20 05:04 Poikilocytosis Not Reportable 04/18/20 05:04 Anisocytosis 1+ 04/18/20 05:04 Microcytosis Not Reportable 04/18/20 05:04 Macrocytosis Not Reportable 04/18/20 05:04 Spherocytes Not Reportable 04/18/20 05:04 Pappenheimer Bodies Not Reportable 04/18/20 05:04 Sickle Cells Not Reportable 04/18/20 05:04 Target Cells Not Reportable 04/18/20 05:04 Tear Drop Cells Not Reportable 04/18/20 05:04 Ovalocytes Not Reportable 04/18/20 05:04 Helmet Cells Not Reportable 04/18/20 05:04 Carter-[place]olt Bodies Not Reportable 04/18/20 05:04 [place] Rings Not Reportable 04/18/20 05:04 Kellogg Cells Not Reportable 04/18/20 05:04 Bite Cells Not Reportable 04/18/20 05:04 Crenated Cell Not Reportable 04/18/20 05:04 Elliptocytes Not Reportable 04/18/20 05:04 Acanthocytes (Spur) Not Reportable 04/18/20 05:04 Rouleaux Not Reportable 04/18/20 05:04 Hemoglobin C Crystals Not Reportable 04/18/20 05:04 Schistocytes Not Reportable 04/18/20 05:04 Malaria parasites Not Reportable 04/18/20 05:04 Jordin Bodies Not Reportable 04/18/20 05:04 Hem Pathologist Commnt No 04/18/20 05:04 D-Dimer 2495.39 ng/mlDDU (0-234) H 04/12/20 17:00 Sodium 140 mmol/L (137-145) 04/18/20 05:04 Potassium 4.0 mmol/L (3.6-5.0) 04/18/20 05:04 Chloride 108.5 mmol/L (98-107) H 04/18/20 05:04 Carbon Dioxide 23 mmol/L (22-30) 04/18/20 05:04 Anion Gap 13 mmol/L 04/18/20 05:04 BUN 12 mg/dL (7-17) 04/18/20 05:04 Creatinine 0.9 mg/dL (0.6-1.2) 04/18/20 05:04 Estimated GFR > 60 ml/min 04/18/20 05:04 BUN/Creatinine Ratio 13 % 04/18/20 05:04 Glucose 88 mg/dL (65-100) 04/18/20 05:04 Hemoglobin A1c 6.2 % (4-6) H 04/13/20 05:20 Lactic Acid 2.50 mmol/L (0.7-2.0) H* 04/12/20 15:11 Calcium 8.8 mg/dL (8.4-10.2) 04/18/20 05:04 Ferritin 1732.0 ng/mL (10.0-200.0) H 04/12/20 17:00 Total Bilirubin 0.70 mg/dL (0.1-1.2) 04/13/20 05:20 Direct Bilirubin 0.2 mg/dL (0-0.2) 04/12/20 Unknown Indirect Bilirubin 0.1 mg/dL 04/12/20 Unknown AST 49 units/L (5-40) H 04/13/20 05:20 ALT 57 units/L (7-56) H 04/13/20 05:20 Alkaline Phosphatase 67 units/L (35-129) 04/13/20 05:20 Lactate Dehydrogenase 428 units/L (91-180) H 04/12/20 17:00 Total Creatine Kinase 63 units/L (30-135) 04/13/20 19:02 Troponin T < 0.010 ng/mL (0.00-0.029) 04/12/20 Unknown C-Reactive Protein 5.60 mg/dL (0.00-1.30) H 04/12/20 17:00 Total Protein 5.2 g/dL (6.3-8.2) L 04/13/20 05:20 Albumin 3.0 g/dL (3.9-5) L 04/13/20 05:20 Albumin/Globulin Ratio 1.4 % 04/13/20 05:20 Procalcitonin 0.14 ng/mL (<0.15) 04/12/20 18:41 Urine Color Yellow (Yellow) 04/14/20 Unknown Urine Turbidity Clear (Clear) 04/14/20 Unknown Urine pH 6.0 (5.0-7.0) 04/14/20 Unknown Ur Specific [place] 1.024 (1.003-1.030) 04/14/20 Unknown Urine Protein <15 mg/dl mg/dL (Negative) 04/14/20 Unknown Urine Glucose (UA) 50 mg/dL (Negative) 04/14/20 Unknown Urine Ketones Neg mg/dL (Negative) 04/14/20 Unknown Urine Blood Neg (Negative) 04/14/20 Unknown Urine Nitrite Neg (Negative) 04/14/20 Unknown Urine Bilirubin Neg (Negative) 04/14/20 Unknown Urine Urobilinogen < 2.0 mg/dL (<2.0) 04/14/20 Unknown Ur Leukocyte Esterase Neg (Negative) 04/14/20 Unknown Urine WBC (Auto) 3.0 /HPF (0.0-6.0) 04/14/20 Unknown Urine RBC (Auto) < 1.0 /HPF (0.0-6.0) 04/14/20 Unknown U Epithel Cells (Auto) < 1.0 /HPF (0-13.0) 04/14/20 Unknown Urine Mucus Few /HPF 04/14/20 Unknown Coronavirus (PCR) Positive (Negative) A 04/13/20 Unknown Microbiology: Microbiology 04/12/20 13:54 Peripheral/Venous Blood Culture - Final NO GROWTH AFTER 5 DAYS Johnson/IV: Voiding Method Incontinent Active Medications - Current Medications Current Medications: Generic Name Dose Route Start Last Admin Trade Name Freq PRN Reason Stop Dose Admin Acetaminophen 650 mg 04/13/20 00:43 Acetaminophen 325 Mg Tab PO Q4H PRN Pain MILD(1-3)/Fever >100.5/CARTER Donepezil HCl 10 mg 04/14/20 10:00 04/17/20 15:14 Donepezil 10 Mg Tab PO Not Given QDAY VALENTINA Famotidine 10 mg 04/13/20 10:00 04/17/20 23:19 Famotidine 10 Mg Tab PO 10 mg BID VALENTINA Administration Heparin Sodium (Porcine) 5,000 unit 04/13/20 10:00 04/17/20 23:20 Heparin 5,000 Unit/1 Ml Vial SUB-Q 5,000 unit Q12HR VALENTINA Administration Hydromorphone HCl 0.25 mg 04/13/20 00:43 Hydromorphone 1 Mg/1 Ml Inj IV Q3H PRN Pain, Moderate (4-6) Dextrose 1,000 mls @ 75 mls/hr 04/15/20 07:00 04/17/20 23:20 D5w IV 75 mls/hr DIRECT VALENTINA Administration Ondansetron HCl 4 mg 04/13/20 00:43 Ondansetron 4 Mg/2 Ml Inj IV Q8H PRN Nausea And Vomiting Oxycodone/Acetaminophen 1 tab 04/13/20 00:43 Oxycodone /Acetaminophen 5-325mg Tab PO Q6H PRN Pain, Moderate (4-6) Prednisone 5 mg 04/14/20 10:00 04/17/20 15:15 Prednisone 5 Mg Tab PO Not Given QDAY VALENTINA Sodium Chloride 10 ml 04/13/20 10:00 04/17/20 23:20 Sodium Chloride 0.9% 10 Ml Flush Syringe IV 10 ml BID VALENTINA Administration Sodium Chloride 10 ml 04/13/20 00:43 Sodium Chloride 0.9% 10 Ml Flush Syringe IV PRN PRN LINE FLUSH Tacrolimus 1.5 mg 04/15/20 11:00 04/17/20 15:16 Tacrolimus 0.5 Mg Cap PO Not Given QAM VALENTINA Tacrolimus 1 mg 04/15/20 22:00 04/17/20 23:19 Tacrolimus 0.5 Mg Cap PO 1 mg QHS VALENTINA Administration Vitamin B Complex/Vitamin C 1 each 04/14/20 10:00 04/17/20 15:12 B Complex W/Vitamin C Tab PO Not Given QDAY VALENTINA Nutrition/Malnutrition Assess - Dietary Evaluation Nutrition/Malnutrition Findings: Nutrition Notes Start: 04/13/20 14:08 Freq: Status: Active Protocol: Document 04/15/20 12:40 EN (Rec: 04/15/20 12:49 EN [id number]) Co-Sign 04/15/20 12:40 MK Nutrition Notes Initial or Follow up Reassessment Current Diagnosis Acute Kidney Injury,CKD(stage I-IV) Other Pertinent Diagnosis (L) flank pain, RLL pneu, FTT, COVID-19+, Dementia Current Diet Cardiac with mechanical soft Labs/Tests Na 147 BUN 22 Pertinent Medications D5w at 75mL/hr Prednisone Vitmain B Complex/Vitmain C Height 5 ft 4 in Weight 35.5 kg [place] Body Weight (kg) 54.54 BMI 13.4 Weight Status Underweight Subjective/Other Information F/u for intakes, ONS and renal labs. Unable to reach pt by phone x3. Per RN, pt consuming 25% of meals. RN denies N/V/D . 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 No Is Patient Ambulatory and/or Out of Bed No REE-([facility]-confined to bed) 973.356 Kcal/Kg value to use for calculation 40 Approximate Energy Requirements Using 1420 kcal/Kg Calculation Used for Recommendations Kcal/kg Additional Notes Pro needs 1.2-1.5g/k-53g/ day Fluid: 500mL + output Nutrition Intervention Change Diet Order: Change to renal with mechanical soft Add Supplement/Snack (indicate name/kcal Nepro BID /protein ) Provides kCal: 850 Provides Protein (gm) 38 Goal #1 PO intake of meals plus ONS to meet 100% energy and pro needs Goal #2 Wt maintenance and/or gain Anticipated Discharge Needs: Renal diet with mechanical soft and ONS as needed Follow-Up By: 04/20/20 Additional Comments F/u for intakes and ONS tolerance
[2020-04-18] MEDS: predniSONE 5 MG TAB PO SCH (10:17)
[2020-04-18] MEDS: DONEPEZIL 10 MG TAB PO SCH (10:17)
[2020-04-18] MEDS: FAMOTIDINE 10 MG TAB PO SCH ×2 (10:17→20:59)
[2020-04-18] MEDS: B COMPLEX W/VITAMIN C TAB PO SCH (10:17)
[2020-04-18] MEDS: TACROLIMUS 0.5 MG CAP PO SCH ×2 (14:33→20:59)
[2020-04-18] MEDS: HEPARIN 5,000 UNIT/1 ML VIAL SUB-Q SCH ×2 (14:33→20:59)
[2020-04-18] MEDS: DEXTROSE 5% IN WATER 1,000 ML IV SCH (14:38)
--- NOTE | 2020-04-18 14:54 | Progress Note ---
Assessment and Plan Asymptomatic sinus bradycardia: Heart rates mostly in 40s-50s COVID 19 pneumonia Dementia H/O Renal transplant Recommend: Continue treatment of COVID per primary team No specific intervention necessary for asymptomatic sinus bradycardia Subjective Date of service: 04/18/20 Principal diagnosis: Covid pneumonia Interval history: No acute events Objective Vital Signs Temp Pulse Resp BP Pulse Ox 04/18/20 11:54 97.9 F 54 L 18 126/78 100 04/18/20 04:44 98.5 F 59 L 20 133/87 97 04/17/20 22:03 98.2 F 49 L 18 123/74 98 04/17/20 17:45 98.4 F 63 18 129/79 99 - Physical Examination Narrative exam: Not personally examined to minimize infection transmission - Labs and Meds CBC 04/18/20 Range/Units 05:04 WBC 3.1 L (4.5-11.0) K/mm3 RBC 4.05 (3.65-5.03) M/mm3 Hgb 12.0 (10.1-14.3) gm/dl Hct 36.7 (30.3-42.9) % Plt Count 137 L (140-440) K/mm3 Comprehensive Metabolic Panel 04/18/20 Range/Units 05:04 Sodium 140 (137-145) mmol/L Potassium 4.0 (3.6-5.0) mmol/L Chloride 108.5 H (98-107) mmol/L Carbon Dioxide 23 (22-30) mmol/L BUN 12 (7-17) mg/dL Creatinine 0.9 (0.6-1.2) mg/dL Glucose 88 (65-100) mg/dL Calcium 8.8 (8.4-10.2) mg/dL
--- NOTE | 2020-04-18 21:39 | Progress Note ---
Assessment and Plan Assessment CKD, status post transplant in 2010 Chronic immunosuppressant therapy Acute kidney injury Hyperkalemia Acidosis Covid positive Pneumonia Recommendations S/p IVF, continue PO hydration S/p kayexalate, now with K within acceptable range Continue immunosuppressant therapy ID note reviewed Cardiology note reviewed Renally dose medications Avoid nephrotoxins Keep MAP > 65 Strict I/O No indication for dialysis at this time Renal diet Lazarus resolved. Will sign off. Please call with questions. Subjective Date of service: 04/18/20 Principal diagnosis: Covid pneumonia Interval history: Remains bradycardic Patient is being followed for renal issues Nursing, interdisciplinary and consult notes were reviewed Vitals, input and output, medications and labs were reviewed Objective - Exam Narrative Exam: Deferred for PPE conservation and to prevent spread of infection - Vital Signs Vital signs: Vital Signs - 12hr 04/18/20 04/18/20 11:54 17:52 Temperature 97.9 F 99.1 F Pulse Rate 54 L 60 Respiratory 18 18 Rate Blood Pressure 126/78 116/66 O2 Sat by Pulse 100 97 Oximetry - Lab 04/18/20 05:04 04/18/20 05:04 Most recent lab results Calcium 8.8 mg/dL (8.4-10.2) 04/18/20 05:04 Medications & Allergies - Medications Allergies/Adverse Reactions: Allergies No Known Allergies Allergy (Verified 12/12/18 16:34) Home Medications: Home Medications Medication Instructions Recorded Confirmed Last Taken Type HYDROcodone/APAP 5-325 [[place] 1 each PO Q6HR PRN #15 tablet 12/12/18 04/15/20 Unknown Rx 5/325] Calcium Carbonate/Vitamin D3 1 each PO DAILY 04/13/20 04/15/20 Unknown History [Calcium 600 mg-D3 20 Mcg Tab] Levothyroxine Sodium 25 mcg PO Q24HR 04/13/20 04/13/20 Unknown History [Levothyroxine] Tacrolimus [Prograf] 0.5 mg PO Q12H 04/13/20 04/13/20 Unknown History Vitamin B Complex [B Complex] 1 each PO DAILY 04/13/20 04/13/20 Unknown History donepeziL [Aricept] 10 mg PO QHS 04/13/20 04/13/20 Unknown History predniSONE [Deltasone] 5 mg PO QDAY 04/13/20 04/13/20 Unknown History Active Medications: Generic Name Dose Route Start Last Admin Trade Name Freq PRN Reason Stop Dose Admin Acetaminophen 650 mg 04/13/20 00:43 Acetaminophen 325 Mg Tab PO Q4H PRN Pain MILD(1-3)/Fever >100.5/CARTER Donepezil HCl 10 mg 04/14/20 10:00 04/18/20 10:17 Donepezil 10 Mg Tab PO 10 mg QDAY VALENTINA Administration Famotidine 10 mg 04/13/20 10:00 04/18/20 20:59 Famotidine 10 Mg Tab PO 10 mg BID VALENTINA Administration Heparin Sodium (Porcine) 5,000 unit 04/13/20 10:00 04/18/20 20:59 Heparin 5,000 Unit/1 Ml Vial SUB-Q 5,000 unit Q12HR VALENTINA Administration Hydromorphone HCl 0.25 mg 04/13/20 00:43 Hydromorphone 1 Mg/1 Ml Inj IV Q3H PRN Pain, Moderate (4-6) Dextrose 1,000 mls @ 75 mls/hr 04/15/20 07:00 04/18/20 14:38 D5w IV 75 mls/hr DIRECT VALENTINA Administration Ondansetron HCl 4 mg 04/13/20 00:43 Ondansetron 4 Mg/2 Ml Inj IV Q8H PRN Nausea And Vomiting Oxycodone/Acetaminophen 1 tab 04/13/20 00:43 Oxycodone /Acetaminophen 5-325mg Tab PO Q6H PRN Pain, Moderate (4-6) Prednisone 5 mg 04/14/20 10:00 04/18/20 10:17 Prednisone 5 Mg Tab PO 5 mg QDAY VALENTINA Administration Sodium Chloride 10 ml 04/13/20 10:00 04/18/20 21:00 Sodium Chloride 0.9% 10 Ml Flush Syringe IV 10 ml BID VALENTINA Administration Sodium Chloride 10 ml 04/13/20 00:43 Sodium Chloride 0.9% 10 Ml Flush Syringe IV PRN PRN LINE FLUSH Tacrolimus 1.5 mg 04/15/20 11:00 04/18/20 14:33 Tacrolimus 0.5 Mg Cap PO 1.5 mg QAM VALENTINA Administration Tacrolimus 1 mg 04/15/20 22:00 04/18/20 20:59 Tacrolimus 0.5 Mg Cap PO 1 mg QHS VALENTINA Administration Vitamin B Complex/Vitamin C 1 each 04/14/20 10:00 04/18/20 10:17 B Complex W/Vitamin C Tab PO 1 each QDAY VALENTINA Administration
[2020-04-19] MEDS: DEXTROSE 5% IN WATER 1,000 ML IV SCH (05:10)
--- NOTE | 2020-04-19 08:55 | Progress Note ---
Assessment and Plan Assessment and plan: COVID-19 pneumonia Alzheimer's dementia. Renal transplant x2/chronic immunosuppressive therapy Asymptomatic bradycardia Leukopenia. Deconditioning. 04/16/2020. Await physical therapy evaluation for disposition/discharge. Patient at high risk for decompensation given immunosuppressive therapy/renal transplantation. 04/17/2020. Order was placed for physical therapy evaluation on 04/15/2020 at 11 AM. Physical therapy reports not documented. Unsure physical therapy saw the patient. Obtain exercise pulse oximetry testing today. Patient currently resting on room air therefore no need for steroids or remdesivir at this time. I discussed the case with the nurse. Will discuss with case management discharge planning. 04/18/2020. No specific intervention necessary for asymptomatic sinus bradyca rdia. Order was placed for physical therapy evaluation on 04/15/2020 at 11 AM. Physical therapy reports not documented. Nurse reported max assistance with the patient. Case management reports patient to return home with sister. However, sister is 77 years old and unable to likely care for sister at this time. Also, [facility] has no room currently to quarantine pt with house size. D/W CM d/c alondra n. 04/19/2020. I had a long discussion with the sister who reports she is unable to take the patient at her house. Await physical therapy evaluation for disposition. Discussed with case management discharge planning/discharge needs. Continue supportive care. Patient with no need for remdesivir or steroids given room air/no hypoxia. Continue to monitor for hypoxia. Patient is at risk for severe disease given immunosuppression. History Interval history: The patient is a 79-year-old female with dementia, renal transplant x2, on chronic immunosuppressant therapy was admitted to the hospital with complaints of flank pain. She was noted to have a low-grade fever. Labs showed normal WBC initially, she has now developed some leukopenia. D-dimer was 2495, creatinine has normalized. Patient tested positive for COVID-19, hence infectious diseases was consulted. She has remained afebrile since hospitalization. Currently on room air. Procalcitonin was low at 0.14 No new issues overnight. Hospitalist Physical - Constitutional Vitals: Temp Pulse Resp BP Pulse Ox 98.1 F 47 L 18 142/63 99 04/19/20 04:51 04/19/20 04:51 04/19/20 04:51 04/19/20 04:51 04/19/20 04:51 General appearance: Present: no acute distress, well-nourished, other (Somewhat cachectic appearing but 79 years old.) - EENT Eyes: Present: PERRL, EOM intact ENT: hearing intact, clear oral mucosa, dentition normal - Neck Neck: Present: supple, normal ROM - Respiratory Respiratory effort: normal Respiratory: bilateral: CTA - Cardiovascular Rhythm: regular Heart Sounds: Present: S1 & S2. Absent: gallop, rub - Extremities Extremities: no ischemia, No edema, Full ROM - Abdominal General gastrointestinal: soft, non-tender, non-distended, normal bowel sounds - Integumentary Integumentary: Present: clear, warm, dry - Neurologic Neurologic: CNII-XII intact, moves all extremities HEART Score - HEART Score Troponin: Troponin T < 0.010 ng/mL (0.00-0.029) 04/12/20 Unknown Results - Labs CBC & Chem 7: 04/18/20 05:04 04/18/20 05:04 Labs: Laboratory Last Values WBC 3.1 K/mm3 (4.5-11.0) L 04/18/20 05:04 RBC 4.05 M/mm3 (3.65-5.03) 04/18/20 05:04 Hgb 12.0 gm/dl (10.1-14.3) 04/18/20 05:04 Hct 36.7 % (30.3-42.9) 04/18/20 05:04 MCV 91 fl (79-97) 04/18/20 05:04 MCH 30 pg (28-32) 04/18/20 05:04 MCHC 33 % (30-34) 04/18/20 05:04 RDW 13.2 % (13.2-15.2) 04/18/20 05:04 Plt Count 137 K/mm3 (140-440) L 04/18/20 05:04 Lymph % (Auto) 7.1 % (13.4-35.0) L 04/14/20 04:53 Gila % (Auto) Hadoop Administrator 04/18/20 05:04 Eos % (Auto) 0.2 % (0.0-4.3) 04/14/20 04:53 Baso % (Auto) 0.2 % (0.0-1.8) 04/14/20 04:53 Lymph # (Auto) 0.2 K/mm3 (1.2-5.4) L 04/14/20 04:53 Gila # (Auto) 0.5 K/mm3 (0.0-0.8) 04/14/20 04:53 Eos # (Auto) 0.0 K/mm3 (0.0-0.4) 04/14/20 04:53 Baso # (Auto) 0.0 K/mm3 (0.0-0.1) 04/14/20 04:53 Add Manual Diff Complete 04/18/20 05:04 Total Counted 100 04/18/20 05:04 Seg Neutrophils % 76.8 % (40.0-70.0) H 04/14/20 04:53 Seg Neuts % (Manual) 81.0 % (40.0-70.0) H 04/18/20 05:04 Lymphocytes % (Manual) 8.0 % (13.4-35.0) L 04/18/20 05:04 Monocytes % (Manual) 11.0 % (0.0-7.3) H 04/18/20 05:04 Nucleated RBC % Not Reportable 04/18/20 05:04 Seg Neutrophils # 2.6 K/mm3 (1.8-7.7) 04/14/20 04:53 Seg Neutrophils # Man 2.5 K/mm3 (1.8-7.7) 04/18/20 05:04 Band Neutrophils # 0.0 K/mm3 04/18/20 05:04 Lymphocytes # (Manual) 0.2 K/mm3 (1.2-5.4) L 04/18/20 05:04 Abs React Lymphs (Man) 0.0 K/mm3 04/18/20 05:04 Monocytes # (Manual) 0.3 K/mm3 (0.0-0.8) 04/18/20 05:04 Eosinophils # (Manual) 0.0 K/mm3 (0.0-0.4) 04/18/20 05:04 Basophils # (Manual) 0.0 K/mm3 (0.0-0.1) 04/18/20 05:04 Metamyelocytes # 0.0 K/mm3 04/18/20 05:04 Myelocytes # 0.0 K/mm3 04/18/20 05:04 Promyelocytes # 0.0 K/mm3 04/18/20 05:04 Blast Cells # 0.0 K/mm3 04/18/20 05:04 WBC Morphology Not Reportable 04/18/20 05:04 Hypersegmented Neuts Not Reportable 04/18/20 05:04 Hyposegmented Neuts Not Reportable 04/18/20 05:04 Hypogranular Neuts Not Reportable 04/18/20 05:04 Smudge Cells Not Reportable 04/18/20 05:04 Toxic Granulation Not Reportable 04/18/20 05:04 Toxic Vacuolation Not Reportable 04/18/20 05:04 Dohle Bodies Not Reportable 04/18/20 05:04 Pelger-Huet Anomaly Not Reportable 04/18/20 05:04 Eric Rods Not Reportable 04/18/20 05:04 Platelet Estimate Consistent w auto 04/18/20 05:04 Clumped Platelets Not Reportable 04/18/20 05:04 Plt Clumps, EDTA Not Reportable 04/18/20 05:04 Large Platelets Not Reportable 04/18/20 05:04 Giant Platelets Not Reportable 04/18/20 05:04 Platelet Satelliting Not Reportable 04/18/20 05:04 Plt Morphology Comment Not Reportable 04/18/20 05:04 RBC Morphology Not Reportable 04/18/20 05:04 Dimorphic RBCs Not Reportable 04/18/20 05:04 Polychromasia Not Reportable 04/18/20 05:04 Hypochromasia Not Reportable 04/18/20 05:04 Poikilocytosis Not Reportable 04/18/20 05:04 Anisocytosis 1+ 04/18/20 05:04 Microcytosis Not Reportable 04/18/20 05:04 Macrocytosis Not Reportable 04/18/20 05:04 Spherocytes Not Reportable 04/18/20 05:04 Pappenheimer Bodies Not Reportable 04/18/20 05:04 Sickle Cells Not Reportable 04/18/20 05:04 Target Cells Not Reportable 04/18/20 05:04 Tear Drop Cells Not Reportable 04/18/20 05:04 Ovalocytes Not Reportable 04/18/20 05:04 Helmet Cells Not Reportable 04/18/20 05:04 Carter-Manito Bodies Not Reportable 04/18/20 05:04 [place] Rings Not Reportable 04/18/20 05:04 Lianna Cells Not Reportable 04/18/20 05:04 Bite Cells Not Reportable 04/18/20 05:04 Crenated Cell Not Reportable 04/18/20 05:04 Elliptocytes Not Reportable 04/18/20 05:04 Acanthocytes (Spur) Not Reportable 04/18/20 05:04 Rouleaux Not Reportable 04/18/20 05:04 Hemoglobin C Crystals Not Reportable 04/18/20 05:04 Schistocytes Not Reportable 04/18/20 05:04 Malaria parasites Not Reportable 04/18/20 05:04 Jordin Bodies Not Reportable 04/18/20 05:04 Hem Pathologist Commnt No 04/18/20 05:04 D-Dimer 2495.39 ng/mlDDU (0-234) H 04/12/20 17:00 Sodium 140 mmol/L (137-145) 04/18/20 05:04 Potassium 4.0 mmol/L (3.6-5.0) 04/18/20 05:04 Chloride 108.5 mmol/L (98-107) H 04/18/20 05:04 Carbon Dioxide 23 mmol/L (22-30) 04/18/20 05:04 Anion Gap 13 mmol/L 04/18/20 05:04 BUN 12 mg/dL (7-17) 04/18/20 05:04 Creatinine 0.9 mg/dL (0.6-1.2) 04/18/20 05:04 Estimated GFR > 60 ml/min 04/18/20 05:04 BUN/Creatinine Ratio 13 % 04/18/20 05:04 Glucose 88 mg/dL (65-100) 04/18/20 05:04 Hemoglobin A1c 6.2 % (4-6) H 04/13/20 05:20 Lactic Acid 2.50 mmol/L (0.7-2.0) H* 04/12/20 15:11 Calcium 8.8 mg/dL (8.4-10.2) 04/18/20 05:04 Ferritin 1732.0 ng/mL (10.0-200.0) H 04/12/20 17:00 Total Bilirubin 0.70 mg/dL (0.1-1.2) 04/13/20 05:20 Direct Bilirubin 0.2 mg/dL (0-0.2) 04/12/20 Unknown Indirect Bilirubin 0.1 mg/dL 04/12/20 Unknown AST 49 units/L (5-40) H 04/13/20 05:20 ALT 57 units/L (7-56) H 04/13/20 05:20 Alkaline Phosphatase 67 units/L (35-129) 04/13/20 05:20 Lactate Dehydrogenase 428 units/L (91-180) H 04/12/20 17:00 Total Creatine Kinase 63 units/L (30-135) 04/13/20 19:02 Troponin T < 0.010 ng/mL (0.00-0.029) 04/12/20 Unknown C-Reactive Protein 5.60 mg/dL (0.00-1.30) H 04/12/20 17:00 Total Protein 5.2 g/dL (6.3-8.2) L 04/13/20 05:20 Albumin 3.0 g/dL (3.9-5) L 04/13/20 05:20 Albumin/Globulin Ratio 1.4 % 04/13/20 05:20 Procalcitonin 0.14 ng/mL (<0.15) 04/12/20 18:41 Urine Color Yellow (Yellow) 04/14/20 Unknown Urine Turbidity Clear (Clear) 04/14/20 Unknown Urine pH 6.0 (5.0-7.0) 04/14/20 Unknown Ur Specific [place] 1.024 (1.003-1.030) 04/14/20 Unknown Urine Protein <15 mg/dl mg/dL (Negative) 04/14/20 Unknown Urine Glucose (UA) 50 mg/dL (Negative) 04/14/20 Unknown Urine Ketones Neg mg/dL (Negative) 04/14/20 Unknown Urine Blood Neg (Negative) 04/14/20 Unknown Urine Nitrite Neg (Negative) 04/14/20 Unknown Urine Bilirubin Neg (Negative) 04/14/20 Unknown Urine Urobilinogen < 2.0 mg/dL (<2.0) 04/14/20 Unknown Ur Leukocyte Esterase Neg (Negative) 04/14/20 Unknown Urine WBC (Auto) 3.0 /HPF (0.0-6.0) 04/14/20 Unknown Urine RBC (Auto) < 1.0 /HPF (0.0-6.0) 04/14/20 Unknown U Epithel Cells (Auto) < 1.0 /HPF (0-13.0) 04/14/20 Unknown Urine Mucus Few /HPF 04/14/20 Unknown Coronavirus (PCR) Positive (Negative) A 04/13/20 Unknown Johnson/IV: Voiding Method Incontinent Active Medications - Current Medications Current Medications: Generic Name Dose Route Start Last Admin Trade Name Freq PRN Reason Stop Dose Admin Acetaminophen 650 mg 04/13/20 00:43 Acetaminophen 325 Mg Tab PO Q4H PRN Pain MILD(1-3)/Fever >100.5/CARTER Donepezil HCl 10 mg 04/14/20 10:00 04/18/20 10:17 Donepezil 10 Mg Tab PO 10 mg QDAY VALENTINA Administration Famotidine 10 mg 04/13/20 10:00 04/18/20 20:59 Famotidine 10 Mg Tab PO 10 mg BID VALENTINA Administration Heparin Sodium (Porcine) 5,000 unit 04/13/20 10:00 04/18/20 20:59 Heparin 5,000 Unit/1 Ml Vial SUB-Q 5,000 unit Q12HR VALENTINA Administration Hydromorphone HCl 0.25 mg 04/13/20 00:43 Hydromorphone 1 Mg/1 Ml Inj IV Q3H PRN Pain, Moderate (4-6) Dextrose 1,000 mls @ 75 mls/hr 04/15/20 07:00 04/19/20 05:10 D5w IV 75 mls/hr DIRECT VALENTINA Administration Ondansetron HCl 4 mg 04/13/20 00:43 Ondansetron 4 Mg/2 Ml Inj IV Q8H PRN Nausea And Vomiting Oxycodone/Acetaminophen 1 tab 04/13/20 00:43 Oxycodone /Acetaminophen 5-325mg Tab PO Q6H PRN Pain, Moderate (4-6) Prednisone 5 mg 04/14/20 10:00 04/18/20 10:17 Prednisone 5 Mg Tab PO 5 mg QDAY VALENTINA Administration Sodium Chloride 10 ml 04/13/20 10:00 04/18/20 21:00 Sodium Chloride 0.9% 10 Ml Flush Syringe IV 10 ml BID VALENTINA Administration Sodium Chloride 10 ml 04/13/20 00:43 Sodium Chloride 0.9% 10 Ml Flush Syringe IV PRN PRN LINE FLUSH Tacrolimus 1.5 mg 04/15/20 11:00 04/18/20 14:33 Tacrolimus 0.5 Mg Cap PO 1.5 mg QAM VALENTINA Administration Tacrolimus 1 mg 04/15/20 22:00 04/18/20 20:59 Tacrolimus 0.5 Mg Cap PO 1 mg QHS VALENTINA Administration Vitamin B Complex/Vitamin C 1 each 04/14/20 10:00 04/18/20 10:17 B Complex W/Vitamin C Tab PO 1 each QDAY VALENTINA Administration Nutrition/Malnutrition Assess - Dietary Evaluation Nutrition/Malnutrition Findings: Nutrition Notes Start: 04/13/20 14:08 Freq: Status: Active Protocol: Document 04/15/20 12:40 EN (Rec: 04/15/20 12:49 EN [id number]) Co-Sign 04/15/20 12:40 MK Nutrition Notes Initial or Follow up Reassessment Current Diagnosis Acute Kidney Injury,CKD(stage I-IV) Other Pertinent Diagnosis (L) flank pain, RLL pneu, FTT, COVID-19+, Dementia Current Diet Cardiac with mechanical soft Labs/Tests Na 147 BUN 22 Pertinent Medications D5w at 75mL/hr Prednisone Vitmain B Complex/Vitmain C Height 5 ft 4 in Weight 35.5 kg [place] Body Weight (kg) 54.54 BMI 13.4 Weight Status Underweight Subjective/Other Information F/u for intakes, ONS and renal labs. Unable to reach pt by phone x3. Per RN, pt consuming 25% of meals. RN denies N/V/D . 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 No Is Patient Ambulatory and/or Out of Bed No REE-([place]-St. Jeor-confined to bed) 973.356 Kcal/Kg value to use for calculation 40 Approximate Energy Requirements Using 1420 kcal/Kg Calculation Used for Recommendations Kcal/kg Additional Notes Pro needs 1.2-1.5g/k-53g/ day Fluid: 500mL + output Nutrition Intervention Change Diet Order: Change to renal with mechanical soft Add Supplement/Snack (indicate name/kcal Nepro BID /protein ) Provides kCal: 850 Provides Protein (gm) 38 Goal #1 PO intake of meals plus ONS to meet 100% energy and pro needs Goal #2 Wt maintenance and/or gain Anticipated Discharge Needs: Renal diet with mechanical soft and ONS as needed Follow-Up By: 04/20/20 Additional Comments F/u for intakes and ONS tolerance
[2020-04-19] MEDS: FAMOTIDINE 10 MG TAB PO SCH ×2 (10:28→23:22)
[2020-04-19] MEDS: predniSONE 5 MG TAB PO SCH (10:28)
[2020-04-19] MEDS: HEPARIN 5,000 UNIT/1 ML VIAL SUB-Q SCH ×2 (10:28→23:22)
--- NOTE | 2020-04-19 10:53 | Progress Note ---
Assessment and Plan - Patient Problems (1) Sinus bradycardia Current Visit: Yes Status: Acute Plan to address problem: Patient admitted with a positive Covid pneumonia, found with transient nocturnal asymptomatic sinus bradycardia. We will order a TSH level, otherwise no cardiac further intervention is indicated. Subjective Date of service: 04/19/20 Principal diagnosis: Covid pneumonia Interval history: The patient appears frail and cachectic, but he is breathing comfortably, no acute distress. Currently she has a stable sinus rhythm at 76. Objective Vital Signs Temp Pulse Resp BP Pulse Ox 04/19/20 04:51 98.1 F 47 L 18 142/63 99 04/18/20 21:45 98.2 F 83 18 103/62 95 04/18/20 17:52 99.1 F 60 18 116/66 97 04/18/20 11:54 97.9 F 54 L 18 126/78 100 - Physical Examination Narrative exam: Full physical exam is deferred due to the patient's positive Covid status. General: No Apparent Distress, Cachectic
[2020-04-19] MEDS: TACROLIMUS 0.5 MG CAP PO SCH ×2 (11:21→23:34)
[2020-04-19] MEDS: DONEPEZIL 10 MG TAB PO SCH (11:21)
[2020-04-19] MEDS: B COMPLEX W/VITAMIN C TAB PO SCH (11:21)
--- NOTE | 2020-04-19 14:02 | Progress Note ---
Assessment and Plan Cultures: SARS CoV2 PCR: Positive Blood culture: No growth Urine culture: No growth A/P: 79-year-old female with dementia, renal transplant x 2, on chronic immunosuppressant therapy, bedbound status was admitted to the hospital with complaints of flank pain: #COVID-19: Not hypoxic. Bedbound status, cannot do ambulatory sats. #Renal transplant x2, chronic immunosuppressant therapy. UA not suggestive of a [place] UTI #Leucopenia: probably from meds v/s COVID-19. Recs: Continue supportive care for now, patient remains on room air hence no benefit with remdesivir or steroids at this time Procalcitonin low, antibiotics not needed Galo Acuña MD, FACP [facility], [facility] ([facility] O: [phone] F: [phone] Subjective Date of service: 04/19/20 Principal diagnosis: Covid pneumonia Interval history: Afebrile. Remains on room air. Objective - Exam Narrative Exam: Physical Exam (reviewed in chart to minimize risk of transmission) Constitutional: deferred Head, Ears, Nose: deferred Eyes: deferred Neck: deferred Oral: deferred Cardiovascular: deferred Respiratory: deferred GI: deferred Musculoskeletal: deferred Skin: deferred Hem/Lymphatic: deferred Psych: deferred Neurological: deferred - Constitutional Vitals: Vital Signs Temp Pulse Resp BP Pulse Ox 98.1 F 47 L 18 142/63 99 04/19/20 04:51 04/19/20 04:51 04/19/20 04:51 04/19/20 04:51 04/19/20 04:51 Temperature -Last 24 Hours Temperature 98.1 F Temperature 98.2 F Temperature 99.1 F - Labs CBC & Chem 7: 04/18/20 05:04 04/18/20 05:04
[2020-04-20] MEDS: DEXTROSE 5% IN WATER 1,000 ML IV SCH ×2 (05:51→21:53)
--- NOTE | 2020-04-20 07:20 | Progress Note ---
Assessment and Plan Assessment and plan: The patient is a 79-year-old female with dementia, renal transplant x2, on chronic immunosuppressant therapy was admitted to the hospital with complaints of flank pain. She was noted to have a low-grade fever. Labs showed normal WBC initially, she has now developed some leukopenia. D-dimer was 2495, creatinine has normalized. Patient tested positive for COVID-19, hence infectious diseases was consulted. She has remained afebrile since hospitalization. Currently on room air. Procalcitonin was low at 0.14 COVID-19 pneumonia Alzheimer's dementia. Renal transplant x2/chronic immunosuppressive therapy Asymptomatic bradycardia Leukopenia. Deconditioning. 04/16/2020. Await physical therapy evaluation for disposition/discharge. Patient at high risk for decompensation given immunosuppressive therapy/renal transplantation. 04/17/2020. Order was placed for physical therapy evaluation on 04/15/2020 at 11 AM. Physical therapy reports not documented. Unsure physical therapy saw the patient. Obtain exercise pulse oximetry testing today. Patient currently resting on room air therefore no need for steroids or remdesivir at this time. I discussed the case with the nurse. Will discuss with case management discharge planning. 04/18/2020. No specific intervention necessary for asymptomatic sinus bradycardia. Order was placed for physical therapy evaluation on 04/15/2020 at 11 AM. Physical therapy reports not documented. Nurse reported max assistance with the patient. Case management reports patient to return home with sister. However, sister is 77 years old and unable to likely care for sister at this time. Also, [facility] has no room currently to quarantine pt with house size. D/W CM d/c plan. 04/19/2020. I had a long discussion with the sister who reports she is unable to take the patient at her house. Await physical therapy evaluation for disposition. Discussed with case management discharge planning/discharge needs. Continue supportive care. Patient with no need for remdesivir or steroids given room air/no hypoxia. Continue to monitor for hypoxia. Patient is at risk for severe disease given immunosuppression. ; patient was evaluated by PT and recommend subacute rehab. Her sister wants to be called and I called her 2x and didn't picking belt operator her phone. Pierre Spearspton [phone]. History Interval history: Patient was seen and evaluated this morning Patient did not have any complaints Patient is severely demented Hospitalist Physical - Physical exam Narrative exam: Not in cardiopulmonary distress. The patient appeared well nourished and normally developed. Vital signs as documented. Head exam is unremarkable. No scleral icterus . Neck is without jugular venous distension, thyromegaly, or carotid bruits. Lungs are clear to auscultation. Cardiac exam reveals regular rate and Rhythm. Abdominal exam reveals normal bowel sounds, nontender, no organomegaly. Extremities are nonedematous and both femoral and pedal pulses are normal. 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 - Constitutional Vitals: Temp Pulse Resp BP Pulse Ox 98.0 F 49 L 16 119/64 99 04/20/20 05:39 04/20/20 05:39 04/20/20 05:39 04/20/20 05:39 04/20/20 05:39 General appearance: Present: no acute distress, well-nourished, other (Somewhat cachectic appearing but 79 years old.) HEART Score - HEART Score Troponin: Troponin T < 0.010 ng/mL (0.00-0.029) 04/12/20 Unknown Results - Labs CBC & Chem 7: 04/18/20 05:04 04/18/20 05:04 Labs: Laboratory Last Values WBC 3.1 K/mm3 (4.5-11.0) L 04/18/20 05:04 RBC 4.05 M/mm3 (3.65-5.03) 04/18/20 05:04 Hgb 12.0 gm/dl (10.1-14.3) 04/18/20 05:04 Hct 36.7 % (30.3-42.9) 04/18/20 05:04 MCV 91 fl (79-97) 04/18/20 05:04 MCH 30 pg (28-32) 04/18/20 05:04 MCHC 33 % (30-34) 04/18/20 05:04 RDW 13.2 % (13.2-15.2) 04/18/20 05:04 Plt Count 137 K/mm3 (140-440) L 04/18/20 05:04 Lymph % (Auto) 7.1 % (13.4-35.0) L 04/14/20 04:53 Person % (Auto) Hollow Tile Partition Erector 04/18/20 05:04 Eos % (Auto) 0.2 % (0.0-4.3) 04/14/20 04:53 Baso % (Auto) 0.2 % (0.0-1.8) 04/14/20 04:53 Lymph # (Auto) 0.2 K/mm3 (1.2-5.4) L 04/14/20 04:53 Person # (Auto) 0.5 K/mm3 (0.0-0.8) 04/14/20 04:53 Eos # (Auto) 0.0 K/mm3 (0.0-0.4) 04/14/20 04:53 Baso # (Auto) 0.0 K/mm3 (0.0-0.1) 04/14/20 04:53 Add Manual Diff Complete 04/18/20 05:04 Total Counted 100 04/18/20 05:04 Seg Neutrophils % 76.8 % (40.0-70.0) H 04/14/20 04:53 Seg Neuts % (Manual) 81.0 % (40.0-70.0) H 04/18/20 05:04 Lymphocytes % (Manual) 8.0 % (13.4-35.0) L 04/18/20 05:04 Monocytes % (Manual) 11.0 % (0.0-7.3) H 04/18/20 05:04 Nucleated RBC % Not Reportable 04/18/20 05:04 Seg Neutrophils # 2.6 K/mm3 (1.8-7.7) 04/14/20 04:53 Seg Neutrophils # Man 2.5 K/mm3 (1.8-7.7) 04/18/20 05:04 Band Neutrophils # 0.0 K/mm3 04/18/20 05:04 Lymphocytes # (Manual) 0.2 K/mm3 (1.2-5.4) L 04/18/20 05:04 Abs React Lymphs (Man) 0.0 K/mm3 04/18/20 05:04 Monocytes # (Manual) 0.3 K/mm3 (0.0-0.8) 04/18/20 05:04 Eosinophils # (Manual) 0.0 K/mm3 (0.0-0.4) 04/18/20 05:04 Basophils # (Manual) 0.0 K/mm3 (0.0-0.1) 04/18/20 05:04 Metamyelocytes # 0.0 K/mm3 04/18/20 05:04 Myelocytes # 0.0 K/mm3 04/18/20 05:04 Promyelocytes # 0.0 K/mm3 04/18/20 05:04 Blast Cells # 0.0 K/mm3 04/18/20 05:04 WBC Morphology Not Reportable 04/18/20 05:04 Hypersegmented Neuts Not Reportable 04/18/20 05:04 Hyposegmented Neuts Not Reportable 04/18/20 05:04 Hypogranular Neuts Not Reportable 04/18/20 05:04 Smudge Cells Not Reportable 04/18/20 05:04 Toxic Granulation Not Reportable 04/18/20 05:04 Toxic Vacuolation Not Reportable 04/18/20 05:04 Dohle Bodies Not Reportable 04/18/20 05:04 Pelger-Huet Anomaly Not Reportable 04/18/20 05:04 Eric Rods Not Reportable 04/18/20 05:04 Platelet Estimate Consistent w auto 04/18/20 05:04 Clumped Platelets Not Reportable 04/18/20 05:04 Plt Clumps, EDTA Not Reportable 04/18/20 05:04 Large Platelets Not Reportable 04/18/20 05:04 Giant Platelets Not Reportable 04/18/20 05:04 Platelet Satelliting Not Reportable 04/18/20 05:04 Plt Morphology Comment Not Reportable 04/18/20 05:04 RBC Morphology Not Reportable 04/18/20 05:04 Dimorphic RBCs Not Reportable 04/18/20 05:04 Polychromasia Not Reportable 04/18/20 05:04 Hypochromasia Not Reportable 04/18/20 05:04 Poikilocytosis Not Reportable 04/18/20 05:04 Anisocytosis 1+ 04/18/20 05:04 Microcytosis Not Reportable 04/18/20 05:04 Macrocytosis Not Reportable 04/18/20 05:04 Spherocytes Not Reportable 04/18/20 05:04 Pappenheimer Bodies Not Reportable 04/18/20 05:04 Sickle Cells Not Reportable 04/18/20 05:04 Target Cells Not Reportable 04/18/20 05:04 Tear Drop Cells Not Reportable 04/18/20 05:04 Ovalocytes Not Reportable 04/18/20 05:04 Helmet Cells Not Reportable 04/18/20 05:04 [place] Bodies Not Reportable 04/18/20 05:04 [place] Rings Not Reportable 04/18/20 05:04 [place] Cells Not Reportable 04/18/20 05:04 Bite Cells Not Reportable 04/18/20 05:04 Crenated Cell Not Reportable 04/18/20 05:04 Elliptocytes Not Reportable 04/18/20 05:04 Acanthocytes (Spur) Not Reportable 04/18/20 05:04 Rouleaux Not Reportable 04/18/20 05:04 Hemoglobin C Crystals Not Reportable 04/18/20 05:04 Schistocytes Not Reportable 04/18/20 05:04 Malaria parasites Not Reportable 04/18/20 05:04 Jordin Bodies Not Reportable 04/18/20 05:04 Hem Pathologist Commnt No 04/18/20 05:04 D-Dimer 2495.39 ng/mlDDU (0-234) H 04/12/20 17:00 Sodium 140 mmol/L (137-145) 04/18/20 05:04 Potassium 4.0 mmol/L (3.6-5.0) 04/18/20 05:04 Chloride 108.5 mmol/L (98-107) H 04/18/20 05:04 Carbon Dioxide 23 mmol/L (22-30) 04/18/20 05:04 Anion Gap 13 mmol/L 04/18/20 05:04 BUN 12 mg/dL (7-17) 04/18/20 05:04 Creatinine 0.9 mg/dL (0.6-1.2) 04/18/20 05:04 Estimated GFR > 60 ml/min 04/18/20 05:04 BUN/Creatinine Ratio 13 % 04/18/20 05:04 Glucose 88 mg/dL (65-100) 04/18/20 05:04 Hemoglobin A1c 6.2 % (4-6) H 04/13/20 05:20 Lactic Acid 2.50 mmol/L (0.7-2.0) H* 04/12/20 15:11 Calcium 8.8 mg/dL (8.4-10.2) 04/18/20 05:04 Ferritin 1732.0 ng/mL (10.0-200.0) H 04/12/20 17:00 Total Bilirubin 0.70 mg/dL (0.1-1.2) 04/13/20 05:20 Direct Bilirubin 0.2 mg/dL (0-0.2) 04/12/20 Unknown Indirect Bilirubin 0.1 mg/dL 04/12/20 Unknown AST 49 units/L (5-40) H 04/13/20 05:20 ALT 57 units/L (7-56) H 04/13/20 05:20 Alkaline Phosphatase 67 units/L (35-129) 04/13/20 05:20 Lactate Dehydrogenase 428 units/L (91-180) H 04/12/20 17:00 Total Creatine Kinase 63 units/L (30-135) 04/13/20 19:02 Troponin T < 0.010 ng/mL (0.00-0.029) 04/12/20 Unknown C-Reactive Protein 5.60 mg/dL (0.00-1.30) H 04/12/20 17:00 Total Protein 5.2 g/dL (6.3-8.2) L 04/13/20 05:20 Albumin 3.0 g/dL (3.9-5) L 04/13/20 05:20 Albumin/Globulin Ratio 1.4 % 04/13/20 05:20 Procalcitonin 0.14 ng/mL (<0.15) 04/12/20 18:41 TSH 3.140 mlU/mL (0.270-4.200) 04/19/20 14:53 Urine Color Yellow (Yellow) 04/14/20 Unknown Urine Turbidity Clear (Clear) 04/14/20 Unknown Urine pH 6.0 (5.0-7.0) 04/14/20 Unknown Ur Specific [place] 1.024 (1.003-1.030) 04/14/20 Unknown Urine Protein <15 mg/dl mg/dL (Negative) 04/14/20 Unknown Urine Glucose (UA) 50 mg/dL (Negative) 04/14/20 Unknown Urine Ketones Neg mg/dL (Negative) 04/14/20 Unknown Urine Blood Neg (Negative) 04/14/20 Unknown Urine Nitrite Neg (Negative) 04/14/20 Unknown Urine Bilirubin Neg (Negative) 04/14/20 Unknown Urine Urobilinogen < 2.0 mg/dL (<2.0) 04/14/20 Unknown Ur Leukocyte Esterase Neg (Negative) 04/14/20 Unknown Urine WBC (Auto) 3.0 /HPF (0.0-6.0) 04/14/20 Unknown Urine RBC (Auto) < 1.0 /HPF (0.0-6.0) 04/14/20 Unknown U Epithel Cells (Auto) < 1.0 /HPF (0-13.0) 04/14/20 Unknown Urine Mucus Few /HPF 04/14/20 Unknown Coronavirus (PCR) Positive (Negative) A 04/13/20 Unknown Johnson/IV: Voiding Method Diaper Active Medications - Current Medications Current Medications: Generic Name Dose Route Start Last Admin Trade Name Freq PRN Reason Stop Dose Admin Acetaminophen 650 mg 04/13/20 00:43 Acetaminophen 325 Mg Tab PO Q4H PRN Pain MILD(1-3)/Fever >100.5/CARTER Donepezil HCl 10 mg 04/14/20 10:00 04/19/20 11:21 Donepezil 10 Mg Tab PO 10 mg QDAY VALENTINA Administration Famotidine 10 mg 04/13/20 10:00 04/19/20 23:22 Famotidine 10 Mg Tab PO 10 mg BID VALENTINA Administration Heparin Sodium (Porcine) 5,000 unit 04/13/20 10:00 04/19/20 23:22 Heparin 5,000 Unit/1 Ml Vial SUB-Q 5,000 unit Q12HR VALENTINA Administration Hydromorphone HCl 0.25 mg 04/13/20 00:43 Hydromorphone 1 Mg/1 Ml Inj IV Q3H PRN Pain, Moderate (4-6) Dextrose 1,000 mls @ 75 mls/hr 04/15/20 07:00 04/20/20 05:51 D5w IV 75 mls/hr DIRECT VALENTINA Administration Ondansetron HCl 4 mg 04/13/20 00:43 Ondansetron 4 Mg/2 Ml Inj IV Q8H PRN Nausea And Vomiting Oxycodone/Acetaminophen 1 tab 04/13/20 00:43 Oxycodone /Acetaminophen 5-325mg Tab PO Q6H PRN Pain, Moderate (4-6) Prednisone 5 mg 04/14/20 10:00 04/19/20 10:28 Prednisone 5 Mg Tab PO 5 mg QDAY VALENTINA Administration Sodium Chloride 10 ml 04/13/20 10:00 04/19/20 23:22 Sodium Chloride 0.9% 10 Ml Flush Syringe IV 10 ml BID VALENTINA Administration Sodium Chloride 10 ml 04/13/20 00:43 Sodium Chloride 0.9% 10 Ml Flush Syringe IV PRN PRN LINE FLUSH Tacrolimus 1.5 mg 04/15/20 11:00 04/19/20 11:21 Tacrolimus 0.5 Mg Cap PO 1.5 mg QAM VALENTINA Administration Tacrolimus 1 mg 04/15/20 22:00 04/19/20 23:34 Tacrolimus 0.5 Mg Cap PO 1 mg QHS VALENTINA Administration Vitamin B Complex/Vitamin C 1 each 04/14/20 10:00 04/19/20 11:21 B Complex W/Vitamin C Tab PO 1 each QDAY VALENTINA Administration Nutrition/Malnutrition Assess - Dietary Evaluation Nutrition/Malnutrition Findings: Nutrition Notes Start: 04/13/20 14:08 Freq: Status: Active Protocol: Document 04/15/20 12:40 EN (Rec: 04/15/20 12:49 EN [email or web address]) Co-Sign 04/15/20 12:40 MK Nutrition Notes Initial or Follow up Reassessment Current Diagnosis Acute Kidney Injury,CKD(stage I-IV) Other Pertinent Diagnosis (L) flank pain, RLL pneu, FTT, COVID-19+, Dementia Current Diet Cardiac with mechanical soft Labs/Tests Na 147 BUN 22 Pertinent Medications D5w at 75mL/hr Prednisone Vitmain B Complex/Vitmain C Height 5 ft 4 in Weight 35.5 kg [place] Body Weight (kg) 54.54 BMI 13.4 Weight Status Underweight Subjective/Other Information F/u for intakes, ONS and renal labs. Unable to reach pt by phone x3. Per RN, pt consuming 25% of meals. RN denies N/V/D . 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 No Is Patient Ambulatory and/or Out of Bed No REE-([place]-St. Jeor-confined to bed) 973.356 Kcal/Kg value to use for calculation 40 Approximate Energy Requirements Using 1420 kcal/Kg Calculation Used for Recommendations Kcal/kg Additional Notes Pro needs 1.2-1.5g/k-53g/ day Fluid: 500mL + output Nutrition Intervention Change Diet Order: Change to renal with mechanical soft Add Supplement/Snack (indicate name/kcal Nepro BID /protein ) Provides kCal: 850 Provides Protein (gm) 38 Goal #1 PO intake of meals plus ONS to meet 100% energy and pro needs Goal #2 Wt maintenance and/or gain Anticipated Discharge Needs: Renal diet with mechanical soft and ONS as needed Follow-Up By: 04/20/20 Additional Comments F/u for intakes and ONS tolerance
--- NOTE | 2020-04-20 09:44 | Progress Note ---
Assessment and Plan Transient nocturnal asymptomatic sinus bradycardia normal TSH at 3.14 COVID 19 pneumonia Dementia H/O Renal transplant Recommend: Continue treatment of COVID per primary team. Otherwise, no specific intervention necessary for asymptomatic sinus bradycardia. Subjective Date of service: 04/20/20 Principal diagnosis: Covid pneumonia Interval history: Currently sinus rhythm, rate 80 on telemetry. Objective Vital Signs Temp Pulse Resp BP Pulse Ox 04/20/20 05:39 98.0 F 49 L 16 119/64 99 04/19/20 23:19 97.4 F L 50 L 18 123/69 99 04/19/20 18:03 97.4 F L 65 18 105/61 99 04/19/20 11:42 98.7 F 60 18 107/65 99 - Physical Examination General: No Apparent Distress, Cachectic Cardiac: Positive: Reg Rate and Rhythm
[2020-04-20] MEDS: FAMOTIDINE 10 MG TAB PO SCH ×2 (10:04→21:56)
[2020-04-20] MEDS: HEPARIN 5,000 UNIT/1 ML VIAL SUB-Q SCH ×2 (10:05→21:53)
[2020-04-20] MEDS: predniSONE 5 MG TAB PO SCH (10:09)
[2020-04-20] MEDS: DONEPEZIL 10 MG TAB PO SCH (11:06)
[2020-04-20] MEDS: B COMPLEX W/VITAMIN C TAB PO SCH (11:06)
[2020-04-20] MEDS: TACROLIMUS 0.5 MG CAP PO SCH ×2 (11:06→22:27)
--- NOTE | 2020-04-20 15:09 | Progress Note ---
Assessment and Plan Cultures: SARS CoV2 PCR: Positive Blood culture: No growth Urine culture: No growth A/P: 79-year-old female with dementia, renal transplant x 2, on chronic immunosuppressant therapy, bedbound status was admitted to the hospital with complaints of flank pain: #COVID-19: Not hypoxic. Bedbound status, cannot do ambulatory sats. #Renal transplant x2, chronic immunosuppressant therapy. UA not suggestive of a [place] UTI #Leucopenia: probably from meds v/s COVID-19. Recs: Continue supportive care for now, patient remains on room air hence no benefit with remdesivir or steroids at this time Procalcitonin low, antibiotics not needed Galo Acuña MD, FACP [facility] [place] [facility] O: [phone] F: [phone] Subjective Date of service: 04/20/20 Principal diagnosis: Covid pneumonia Interval history: Afebrile. Remains on room air. Objective - Exam Narrative Exam: Physical Exam (reviewed in chart to minimize risk of transmission) Constitutional: deferred Head, Ears, Nose: deferred Eyes: deferred Neck: deferred Oral: deferred Cardiovascular: deferred Respiratory: deferred GI: deferred Musculoskeletal: deferred Skin: deferred Hem/Lymphatic: deferred Psych: deferred Neurological: deferred - Constitutional Vitals: Vital Signs Temp Pulse Resp BP Pulse Ox 98.7 F 67 17 102/64 97 04/20/20 12:02 04/20/20 12:02 04/20/20 12:02 04/20/20 12:02 04/20/20 12:02 Temperature -Last 24 Hours Temperature 98.7 F Temperature 98.0 F Temperature 97.4 F Temperature 97.4 F - Labs CBC & Chem 7: 04/18/20 05:04 04/18/20 05:04
--- NOTE | 2020-04-21 07:53 | Progress Note ---
Assessment and Plan Assessment and plan: The patient is a 79-year-old female with dementia, renal transplant x2, on chronic immunosuppressant therapy was admitted to the hospital with complaints of flank pain. She was noted to have a low-grade fever. Labs showed normal WBC initially, she has now developed some leukopenia. D-dimer was 2495, creatinine has normalized. Patient tested positive for COVID-19, hence infectious diseases was consulted. She has remained afebrile since hospitalization. Currently on room air. Procalcitonin was low at 0.14 COVID-19 pneumonia Alzheimer's dementia. Renal transplant x2/chronic immunosuppressive therapy Asymptomatic bradycardia Leukopenia. Deconditioning. 04/16/2020. Await physical therapy evaluation for disposition/discharge. Patient at high risk for decompensation given immunosuppressive therapy/renal transplantation. 04/17/2020. Order was placed for physical therapy evaluation on 04/15/2020 at 11 AM. Physical therapy reports not documented. Unsure physical therapy saw the patient. Obtain exercise pulse oximetry testing today. Patient currently resting on room air therefore no need for steroids or remdesivir at this time. I discussed the case with the nurse. Will discuss with case management discharge planning. 04/18/2020. No specific intervention necessary for asymptomatic sinus bradycardia. Order was placed for physical therapy evaluation on 04/15/2020 at 11 AM. Physical therapy reports not documented. Nurse reported max assistance with the patient. Case management reports patient to return home with sister. However, sister is 77 years old and unable to likely care for sister at this time. Also, sisiter has no room currently to quarantine pt with house size. D/W CM d/c plan. 04/19/2020. I had a long discussion with the sister who reports she is unable to take the patient at her house. Await physical therapy evaluation for disposition. Discussed with case management discharge planning/discharge needs. Continue supportive care. Patient with no need for remdesivir or steroids given room air/no hypoxia. Continue to monitor for hypoxia. Patient is at risk for severe disease given immunosuppression. 04/20/20; patient was evaluated by PT and recommend subacute rehab. Her sister wants to be called and I called her 2x and didn't brain picker her phone. Pierre Robert [phone]. 04/21/2020; case management is working for placement to subacute rehab. History Interval history: Patient was seen and evaluated this morning Patient did not have any complaints Patient is severely demented Hospitalist Physical - Physical exam Narrative exam: Not in cardiopulmonary distress. The patient appeared well nourished and normally developed. Vital signs as documented. Head exam is unremarkable. No scleral icterus . Neck is without jugular venous distension, thyromegaly, or carotid bruits. Lungs are clear to auscultation. Cardiac exam reveals regular rate and Rhythm. Abdominal exam reveals normal bowel sounds, nontender, no organomegaly. Extremities are nonedematous and both femoral and pedal pulses are normal. 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 - Constitutional Vitals: Temp Pulse Resp BP Pulse Ox 98.2 F 48 L 18 117/59 100 04/21/20 04:42 04/21/20 04:42 04/21/20 04:42 04/21/20 04:42 04/21/20 04:42 General appearance: Present: no acute distress, well-nourished, other (Somewhat cachectic appearing but 79 years old.) HEART Score - HEART Score Troponin: Troponin T < 0.010 ng/mL (0.00-0.029) 04/12/20 Unknown Results - Labs CBC & Chem 7: 04/18/20 05:04 04/18/20 05:04 Labs: Laboratory Last Values WBC 3.1 K/mm3 (4.5-11.0) L 04/18/20 05:04 RBC 4.05 M/mm3 (3.65-5.03) 04/18/20 05:04 Hgb 12.0 gm/dl (10.1-14.3) 04/18/20 05:04 Hct 36.7 % (30.3-42.9) 04/18/20 05:04 MCV 91 fl (79-97) 04/18/20 05:04 MCH 30 pg (28-32) 04/18/20 05:04 MCHC 33 % (30-34) 04/18/20 05:04 RDW 13.2 % (13.2-15.2) 04/18/20 05:04 Plt Count 137 K/mm3 (140-440) L 04/18/20 05:04 Lymph % (Auto) 7.1 % (13.4-35.0) L 04/14/20 04:53 Rincon % (Auto) Appliquer Zigzag 04/18/20 05:04 Eos % (Auto) 0.2 % (0.0-4.3) 04/14/20 04:53 Baso % (Auto) 0.2 % (0.0-1.8) 04/14/20 04:53 Lymph # (Auto) 0.2 K/mm3 (1.2-5.4) L 04/14/20 04:53 Rincon # (Auto) 0.5 K/mm3 (0.0-0.8) 04/14/20 04:53 Eos # (Auto) 0.0 K/mm3 (0.0-0.4) 04/14/20 04:53 Baso # (Auto) 0.0 K/mm3 (0.0-0.1) 04/14/20 04:53 Add Manual Diff Complete 04/18/20 05:04 Total Counted 100 04/18/20 05:04 Seg Neutrophils % 76.8 % (40.0-70.0) H 04/14/20 04:53 Seg Neuts % (Manual) 81.0 % (40.0-70.0) H 04/18/20 05:04 Lymphocytes % (Manual) 8.0 % (13.4-35.0) L 04/18/20 05:04 Monocytes % (Manual) 11.0 % (0.0-7.3) H 04/18/20 05:04 Nucleated RBC % Not Reportable 04/18/20 05:04 Seg Neutrophils # 2.6 K/mm3 (1.8-7.7) 04/14/20 04:53 Seg Neutrophils # Man 2.5 K/mm3 (1.8-7.7) 04/18/20 05:04 Band Neutrophils # 0.0 K/mm3 04/18/20 05:04 Lymphocytes # (Manual) 0.2 K/mm3 (1.2-5.4) L 04/18/20 05:04 Abs React Lymphs (Man) 0.0 K/mm3 04/18/20 05:04 Monocytes # (Manual) 0.3 K/mm3 (0.0-0.8) 04/18/20 05:04 Eosinophils # (Manual) 0.0 K/mm3 (0.0-0.4) 04/18/20 05:04 Basophils # (Manual) 0.0 K/mm3 (0.0-0.1) 04/18/20 05:04 Metamyelocytes # 0.0 K/mm3 04/18/20 05:04 Myelocytes # 0.0 K/mm3 04/18/20 05:04 Promyelocytes # 0.0 K/mm3 04/18/20 05:04 Blast Cells # 0.0 K/mm3 04/18/20 05:04 WBC Morphology Not Reportable 04/18/20 05:04 Hypersegmented Neuts Not Reportable 04/18/20 05:04 Hyposegmented Neuts Not Reportable 04/18/20 05:04 Hypogranular Neuts Not Reportable 04/18/20 05:04 Smudge Cells Not Reportable 04/18/20 05:04 Toxic Granulation Not Reportable 04/18/20 05:04 Toxic Vacuolation Not Reportable 04/18/20 05:04 Dohle Bodies Not Reportable 04/18/20 05:04 Pelger-Huet Anomaly Not Reportable 04/18/20 05:04 Eric Rods Not Reportable 04/18/20 05:04 Platelet Estimate Consistent w auto 04/18/20 05:04 Clumped Platelets Not Reportable 04/18/20 05:04 Plt Clumps, EDTA Not Reportable 04/18/20 05:04 Large Platelets Not Reportable 04/18/20 05:04 Giant Platelets Not Reportable 04/18/20 05:04 Platelet Satelliting Not Reportable 04/18/20 05:04 Plt Morphology Comment Not Reportable 04/18/20 05:04 RBC Morphology Not Reportable 04/18/20 05:04 Dimorphic RBCs Not Reportable 04/18/20 05:04 Polychromasia Not Reportable 04/18/20 05:04 Hypochromasia Not Reportable 04/18/20 05:04 Poikilocytosis Not Reportable 04/18/20 05:04 Anisocytosis 1+ 04/18/20 05:04 Microcytosis Not Reportable 04/18/20 05:04 Macrocytosis Not Reportable 04/18/20 05:04 Spherocytes Not Reportable 04/18/20 05:04 Pappenheimer Bodies Not Reportable 04/18/20 05:04 Sickle Cells Not Reportable 04/18/20 05:04 Target Cells Not Reportable 04/18/20 05:04 Tear Drop Cells Not Reportable 04/18/20 05:04 Ovalocytes Not Reportable 04/18/20 05:04 Helmet Cells Not Reportable 04/18/20 05:04 Carter-Weskan Bodies Not Reportable 04/18/20 05:04 Kirklin Rings Not Reportable 04/18/20 05:04 Lianna Cells Not Reportable 04/18/20 05:04 Bite Cells Not Reportable 04/18/20 05:04 Crenated Cell Not Reportable 04/18/20 05:04 Elliptocytes Not Reportable 04/18/20 05:04 Acanthocytes (Spur) Not Reportable 04/18/20 05:04 Rouleaux Not Reportable 04/18/20 05:04 Hemoglobin C Crystals Not Reportable 04/18/20 05:04 Schistocytes Not Reportable 04/18/20 05:04 Malaria parasites Not Reportable 04/18/20 05:04 Jordin Bodies Not Reportable 04/18/20 05:04 Hem Pathologist Commnt No 04/18/20 05:04 D-Dimer 2495.39 ng/mlDDU (0-234) H 04/12/20 17:00 Sodium 140 mmol/L (137-145) 04/18/20 05:04 Potassium 4.0 mmol/L (3.6-5.0) 04/18/20 05:04 Chloride 108.5 mmol/L (98-107) H 04/18/20 05:04 Carbon Dioxide 23 mmol/L (22-30) 04/18/20 05:04 Anion Gap 13 mmol/L 04/18/20 05:04 BUN 12 mg/dL (7-17) 04/18/20 05:04 Creatinine 0.9 mg/dL (0.6-1.2) 04/18/20 05:04 Estimated GFR > 60 ml/min 04/18/20 05:04 BUN/Creatinine Ratio 13 % 04/18/20 05:04 Glucose 88 mg/dL (65-100) 04/18/20 05:04 Hemoglobin A1c 6.2 % (4-6) H 04/13/20 05:20 Lactic Acid 2.50 mmol/L (0.7-2.0) H* 04/12/20 15:11 Calcium 8.8 mg/dL (8.4-10.2) 04/18/20 05:04 Ferritin 1732.0 ng/mL (10.0-200.0) H 04/12/20 17:00 Total Bilirubin 0.70 mg/dL (0.1-1.2) 04/13/20 05:20 Direct Bilirubin 0.2 mg/dL (0-0.2) 04/12/20 Unknown Indirect Bilirubin 0.1 mg/dL 04/12/20 Unknown AST 49 units/L (5-40) H 04/13/20 05:20 ALT 57 units/L (7-56) H 04/13/20 05:20 Alkaline Phosphatase 67 units/L (35-129) 04/13/20 05:20 Lactate Dehydrogenase 428 units/L (91-180) H 04/12/20 17:00 Total Creatine Kinase 63 units/L (30-135) 04/13/20 19:02 Troponin T < 0.010 ng/mL (0.00-0.029) 04/12/20 Unknown C-Reactive Protein 5.60 mg/dL (0.00-1.30) H 04/12/20 17:00 Total Protein 5.2 g/dL (6.3-8.2) L 04/13/20 05:20 Albumin 3.0 g/dL (3.9-5) L 04/13/20 05:20 Albumin/Globulin Ratio 1.4 % 04/13/20 05:20 Procalcitonin 0.14 ng/mL (<0.15) 04/12/20 18:41 TSH 3.140 mlU/mL (0.270-4.200) 04/19/20 14:53 Urine Color Yellow (Yellow) 04/14/20 Unknown Urine Turbidity Clear (Clear) 04/14/20 Unknown Urine pH 6.0 (5.0-7.0) 04/14/20 Unknown Ur Specific [place] 1.024 (1.003-1.030) 04/14/20 Unknown Urine Protein <15 mg/dl mg/dL (Negative) 04/14/20 Unknown Urine Glucose (UA) 50 mg/dL (Negative) 04/14/20 Unknown Urine Ketones Neg mg/dL (Negative) 04/14/20 Unknown Urine Blood Neg (Negative) 04/14/20 Unknown Urine Nitrite Neg (Negative) 04/14/20 Unknown Urine Bilirubin Neg (Negative) 04/14/20 Unknown Urine Urobilinogen < 2.0 mg/dL (<2.0) 04/14/20 Unknown Ur Leukocyte Esterase Neg (Negative) 04/14/20 Unknown Urine WBC (Auto) 3.0 /HPF (0.0-6.0) 04/14/20 Unknown Urine RBC (Auto) < 1.0 /HPF (0.0-6.0) 04/14/20 Unknown U Epithel Cells (Auto) < 1.0 /HPF (0-13.0) 04/14/20 Unknown Urine Mucus Few /HPF 04/14/20 Unknown Coronavirus (PCR) Positive (Negative) A 04/13/20 Unknown Johnson/IV: Voiding Method Incontinent Active Medications - Current Medications Current Medications: Generic Name Dose Route Start Last Admin Trade Name Freq PRN Reason Stop Dose Admin Acetaminophen 650 mg 04/13/20 00:43 Acetaminophen 325 Mg Tab PO Q4H PRN Pain MILD(1-3)/Fever >100.5/CARTER Donepezil HCl 10 mg 04/14/20 10:00 04/20/20 11:06 Donepezil 10 Mg Tab PO 10 mg QDAY VALENTINA Administration Famotidine 10 mg 04/13/20 10:00 04/20/20 21:56 Famotidine 10 Mg Tab PO 10 mg BID VALENTINA Administration Heparin Sodium (Porcine) 5,000 unit 04/13/20 10:00 04/20/20 21:53 Heparin 5,000 Unit/1 Ml Vial SUB-Q 5,000 unit Q12HR VALENTINA Administration Hydromorphone HCl 0.25 mg 04/13/20 00:43 Hydromorphone 1 Mg/1 Ml Inj IV Q3H PRN Pain, Moderate (4-6) Dextrose 1,000 mls @ 75 mls/hr 04/15/20 07:00 04/20/20 21:53 D5w IV 75 mls/hr DIRECT VALENTINA Administration Ondansetron HCl 4 mg 04/13/20 00:43 Ondansetron 4 Mg/2 Ml Inj IV Q8H PRN Nausea And Vomiting Oxycodone/Acetaminophen 1 tab 04/13/20 00:43 Oxycodone /Acetaminophen 5-325mg Tab PO Q6H PRN Pain, Moderate (4-6) Prednisone 5 mg 04/14/20 10:00 04/20/20 10:09 Prednisone 5 Mg Tab PO 5 mg QDAY VALENTINA Administration Sodium Chloride 10 ml 04/13/20 10:00 04/20/20 22:27 Sodium Chloride 0.9% 10 Ml Flush Syringe IV 10 ml BID VALENTINA Administration Sodium Chloride 10 ml 04/13/20 00:43 Sodium Chloride 0.9% 10 Ml Flush Syringe IV PRN PRN LINE FLUSH Tacrolimus 1.5 mg 04/15/20 11:00 04/20/20 11:06 Tacrolimus 0.5 Mg Cap PO 1.5 mg QAM VALENTINA Administration Tacrolimus 1 mg 04/15/20 22:00 04/20/20 22:27 Tacrolimus 0.5 Mg Cap PO 1 mg QHS VALENTINA Administration Vitamin B Complex/Vitamin C 1 each 04/14/20 10:00 04/20/20 11:06 B Complex W/Vitamin C Tab PO 1 each QDAY VALENTINA Administration Nutrition/Malnutrition Assess - Dietary Evaluation Nutrition/Malnutrition Findings: Nutrition Notes Start: 04/13/20 14:08 Freq: Status: Active Protocol: Document 04/20/20 12:35 [email or web address] (Rec: 04/20/20 12:45 [email or web address] [id number]) Co-Sign 04/20/20 12:35 Nutrition Notes Initial or Follow up Reassessment Current Diagnosis Acute Kidney Injury,CKD(stage I-IV) Other Pertinent Diagnosis (L) flank pain, RLL pneu, FTT, COVID-19+, Dementia Current Diet Cardiac with mechanical soft Labs/Tests BUN 12 A1c 6.2 Pertinent Medications D5W at 75ml/hr Vitamin B complex/Vitamin C Height 5 ft 4 in Weight 35.3 kg [place] Body Weight (kg) 54.54 BMI 13.3 Weight Status Underweight Subjective/Other Information F/U for intake and ONS tolerance. Unable to reach pt by phone x2. Spoke to RN, pt is consuming 75% of meals and doesnt like the Nepro flavor. 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 No Is Patient Ambulatory and/or Out of Bed No REE-([place]-confined to bed) 970.956 Kcal/Kg value to use for calculation 40 Approximate Energy Requirements Using 1412 kcal/Kg Calculation Used for Recommendations Kcal/kg Additional Notes Pro needs 1.2-1.5g/k-53g/ day Fluid: 500mL + output Nutrition Intervention Change Diet Order: Continue renal with mechanical soft Add Supplement/Snack (indicate name/kcal Nepro BID /protein ) Provides kCal: 850 Provides Protein (gm) 38 Goal #1 PO intake of meals plus ONS to meet 100% energy and pro needs Goal #2 Wt maintenance and/or gain Anticipated Discharge Needs: Renal diet with mechanical soft and ONS as needed Follow-Up By: 04/22/20 Additional Comments F/U for intakes and ONS tolerance
--- NOTE | 2020-04-21 10:18 | Progress Note ---
Assessment and Plan Transient nocturnal asymptomatic sinus bradycardia normal TSH at 3.14 COVID 19 pneumonia Dementia H/O Renal transplant Recommend: Continue treatment of COVID per primary team. Otherwise, no specific intervention necessary for transient noctural sinus bradycardia. Subjective Date of service: 04/21/20 Principal diagnosis: Covid pneumonia Interval history: No interval cardiac changes. Currently sinus rhythm, rate 64 on telemetry. Objective Vital Signs Temp Pulse Resp BP BP Pulse Ox 04/21/20 04:42 98.2 F 48 L 18 117/59 100 04/20/20 21:38 98.2 F 52 L 18 124/69 99 04/20/20 16:08 98.0 F 77 17 107/74 99 04/20/20 12:02 98.7 F 67 17 102/64 97 04/20/20 11:18 98.0 F 65 17 102/64 76 L - Physical Examination Narrative exam: Deferred due to isolation protocol. General: No Apparent Distress Cardiac: Positive: Reg Rate and Rhythm
--- NOTE | 2020-04-21 11:46 | Discharge Summary ---
Providers - Providers Date of Admission: 04/13/20 15:16 Date of discharge: 04/21/20 Attending physician: ISAC CARRILLO MD 04/12/20 17:22 Consult to Physician [CONS] Stat Comment: Consulting Provider: JESSICA DORSEY Physician Instructions: Reason For Exam: hyperkalemia 04/15/20 06:41 Consult to Physician [CONS] Routine Comment: Consulting Provider: HENNA GUERRA Physician Instructions: Reason For Exam: Covid pneumonia 04/15/20 11:24 Physical Therapy Evaluation and Treat [CONS] Routine Comment: Reason For Exam: debility 04/17/20 06:29 Consult to Physician [CONS] Routine Comment: Consulting Provider: LAW KWONG Physician Instructions: Reason For Exam: bradycardia 04/17/20 09:37 Physical Therapy Evaluation and Treat [CONS] Routine Comment: Reason For Exam: debility Primary care physician: PRERNA GIMENEZ Hospitalization Reason for admission: Dementia, COVID-19 infection, bradycardia Condition: Stable Hospital course: History of present illness: Patient is 79 years old female with history of dementia and history of kidney transplant x2. Patient brought to the emergency room accompanied by her sister. Sister stated that patient started complaining of left flank pain this morning. Patient is not communicating well so most of the history is from patient sister. Sister also stated that she has not been eating or drinking well for the last few days. Sister stated that she did not notice any cough or shortness of breath. Hospital course COVID-19 pneumonia Alzheimer's dementia. Renal transplant x2/chronic immunosuppressive therapy Asymptomatic bradycardia Leukopenia. Deconditioning. 04/16/2020. Await physical therapy evaluation for disposition/discharge. Patient at high risk for decompensation given immunosuppressive therapy/renal transplantation. 04/17/2020. Order was placed for physical therapy evaluation on 04/15/2020 at 11 AM. Physical therapy reports not documented. Unsure physical therapy saw the patient. Obtain exercise pulse oximetry testing today. Patient currently resting on room air therefore no need for steroids or remdesivir at this time. I discussed the case with the nurse. Will discuss with case management discharge planning. 04/18/2020. No specific intervention necessary for asymptomatic sinus bradycardia. Order was placed for physical therapy evaluation on 04/15/2020 at 11 AM. Physical therapy reports not documented. Nurse reported max assistance with the patient. Case management reports patient to return home with sister. However, sister is 77 years old and unable to likely care for sister at this time. Also, [facility] has no room currently to quarantine pt with house size. D/W CM d/c plan. 04/19/2020. I had a long discussion with the sister who reports she is unable to take the patient at her house. Await physical therapy evaluation for disposition. Discussed with case management discharge planning/discharge needs. Continue supportive care. Patient with no need for remdesivir or steroids given room air/no hypoxia. Continue to monitor for hypoxia. Patient is at risk for severe disease given immunosuppression. 04/20/20; patient was evaluated by PT and recommend subacute rehab. Her sister wants to be called and I called her 2x and didn't mushroom picker her phone. Pierre Robert [phone]. 04/21/2020; case management is working for placement to subacute rehab. Patient was seen and evaluated this morning. Patient was alert and communicative, did not have any complaints. Management plan was discussed with the patient and was in agreement with the plan of care. Case management arranged to be discharged to [facility] for [facility]. Patient was hemo dynamically stable at the time of discharge. Appropriate medications were reconciled at the time of discharge. Patient's questions and concerns were addressed at the bedside. Disposition: [id number] [facility] REHAB FACILITY Time spent for discharge: 32 minutes - Discharge Diagnoses (1) Acute renal failure Status: Acute Qualifiers: Acute renal failure type: with acute tubular necrosis Qualified Code(s): N17.0 - Acute kidney failure with tubular necrosis (2) Failure to thrive Status: Acute (3) Hyperkalemia Status: Acute (4) Hypernatremia Status: Acute (5) Pneumonia due to COVID-19 virus Status: Acute (6) Sinus bradycardia Status: Acute (7) Alzheimer's dementia without behavioral disturbance Status: Acute Core Measure Documentation - Palliative Care Palliative Care/ Comfort Measures: Not Applicable - Core Measures Any of the following diagnoses?: none Exam - Physical Exam Narrative exam: Not in cardiopulmonary distress. The patient appeared well nourished and normally developed. Vital signs as documented. Head exam is unremarkable. No scleral icterus . Neck is without jugular venous distension, thyromegaly, or carotid bruits. Lungs are clear to auscultation. Cardiac exam reveals regular rate and Rhythm. Abdominal exam reveals normal bowel sounds, nontender, no organomegaly. Extremities are nonedematous and both femoral and pedal pulses are normal. 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 - Constitutional Vitals: Temp Pulse Resp BP Pulse Ox 98.2 F 48 L 18 117/59 100 04/21/20 04:42 04/21/20 04:42 04/21/20 04:42 04/21/20 04:42 04/21/20 04:42 Plan Activity: no restrictions Weight Bearing Status: Full Weight Bearing Diet: regular Follow up with: PRERNA GIMENEZ MD [Primary Care Provider] - 3-5 Days JAVIER DUARTE MD [Staff Physician] - 7 Days
[2020-04-21] MEDS: predniSONE 5 MG TAB PO SCH (12:00)
[2020-04-21] MEDS: DONEPEZIL 10 MG TAB PO SCH (12:03)
[2020-04-21] MEDS: HEPARIN 5,000 UNIT/1 ML VIAL SUB-Q SCH (12:05)
[2020-04-21] MEDS: B COMPLEX W/VITAMIN C TAB PO SCH (12:06)
[2020-04-21] MEDS: FAMOTIDINE 10 MG TAB PO SCH (12:06)
--- NOTE | 2020-04-21 14:02 | Progress Note ---
Assessment and Plan Cultures: SARS CoV2 PCR: Positive Blood culture: No growth Urine culture: No growth A/P: 79-year-old female with dementia, renal transplant x 2, on chronic immunosuppressant therapy, bedbound status was admitted to the hospital with complaints of flank pain: #COVID-19: Not hypoxic. Bedbound status, cannot do ambulatory sats. #Renal transplant x2, chronic immunosuppressant therapy. UA not suggestive of a [place] UTI #Leucopenia: probably from meds v/s COVID-19. Recs: remains on room air for the last several days, hence no benefit with remdesivir or steroids OK for discharge from ID standpoint Will sign off. Please call with questions. Galo Acuña MD, FACP [facility] O: [phone] F: [phone] Subjective Date of service: 04/21/20 Principal diagnosis: Covid pneumonia Interval history: Afebrile. Remains on room air. Objective - Exam Narrative Exam: Physical Exam (reviewed in chart to minimize risk of transmission) Constitutional: deferred Head, Ears, Nose: deferred Eyes: deferred Neck: deferred Oral: deferred Cardiovascular: deferred Respiratory: deferred GI: deferred Musculoskeletal: deferred Skin: deferred Hem/Lymphatic: deferred Psych: deferred Neurological: deferred - Constitutional Vitals: Vital Signs Temp Pulse Resp BP Pulse Ox 98.3 F 54 L 18 117/59 100 04/21/20 10:58 04/21/20 10:58 04/21/20 10:58 04/21/20 10:58 04/21/20 10:58 Temperature -Last 24 Hours Temperature 98.3 F Temperature 98.2 F Temperature 98.2 F Temperature 98.0 F - Labs CBC & Chem 7: 04/18/20 05:04 04/18/20 05:04
[2020-04-21 17:30] VITALS: BP 106/59
== END 2020-04-21 20:20 | DRG 177 ==
LOC: ED 10:59 → 3A 16:53 → OBSVTOIN 04-13 15:16 → 3A 04-17 04:22
PROVIDERS: ADMIT Internal Medicine; ATTEND Internal Medicine
DX: U07.1 COVID-19 (principal); J12.82 Pneumonia due to coronavirus disease 2019; N17.0 Acute kidney failure with tubular necrosis; J18.1 Lobar pneumonia, unspecified organism; Z68.1 Body mass index [BMI] 19.9 or less, adult; E87.0 Hyperosmolality and hypernatremia; Z94.0 Kidney transplant status; E87.2 Acidosis; R62.7 Adult failure to thrive; E87.5 Hyperkalemia; N18.9 Chronic kidney disease, unspecified; G30.9 Alzheimer's disease, unspecified; F02.80 Dementia in other diseases classified elsewhere, unspecified severity, without behavioral disturbance, psychotic disturbance, mood disturbance, and anxiety; D72.819 Decreased white blood cell count, unspecified; Z79.899 Other long term (current) drug therapy; Z79.891 Long term (current) use of opiate analgesic; Z79.01 Long term (current) use of anticoagulants
CPT/HCPCS: 36415; 71045; 74176; 80048; 80053; 80076; 81001; 82140; 82330; 82550; 82728; 82947; 83036; 83615; 84145; 84443; 84484; 85007; 85025; 85379; 86140; 87040; 87086; 93005; 96365; 96375; G0378; J0456; J0610; J0696; J1644; J1815; J7030; J7070; J7120; J7512; U0003

== ENCOUNTER 2020-08-20 10:18 | Outpatient (CLI) | payer MEDICARE | END 2020-08-20 10:19 | disposition home or self-care (01) | LOC: LAB 10:18 | PROVIDERS: ATTEND Internal Medicine | DX: Z94.0 Kidney transplant status (principal) | CPT/HCPCS: 36415; 80197 ==

== ENCOUNTER 2020-09-08 09:33 | Outpatient (CLI) | payer MEDICARE ==
[2020-09-08 10:20] LABS: Hematocrit 40.5 % (30.3-42.9); Hemoglobin 13.5 gm/dl (10.1-14.3); Mean Corpuscular HGB Conc 33 % (30-34); Mean Corpuscular Volume 91 fl (79-97); Platelet Count 145 K/mm3 (140-440); Red Blood Count 4.48 M/mm3 (3.65-5.03); Red Cell Distribution Width 13.9 % (13.2-15.2)
[2020-09-08 10:54] LABS: Albumin 4.2 g/dL (3.9-5); Calcium 10.4 mg/dL (8.4-10.2)
[2020-09-08 11:13] LABS: Total Cells Counted 100
[2020-09-08 11:20] LABS: Ovalocytes Few; Platelet Estimate Consistent w Auto
[2020-09-08 12:23] LABS: Creatinine,Urine 205.2 mg/dL (0.1-20.0); Protein/Creatinine Ratio,Urine 0.06
== END 2020-09-08 09:34 | disposition home or self-care (01) ==
LOC: LAB 09:33
PROVIDERS: ATTEND Internal Medicine
DX: I10 Essential (primary) hypertension (principal); E03.9 Hypothyroidism, unspecified; E78.5 Hyperlipidemia, unspecified; Z94.0 Kidney transplant status
CPT/HCPCS: 36415; 80053; 80197; 82570; 84156; 85007; 85025

== ENCOUNTER 2021-01-10 12:03 | Outpatient (CLI) | payer MEDICARE ==
[2021-01-10 12:38] LABS: Basophils % (Auto) 0.3 % (0.0-1.8); Eosinophils % (Auto) 0.3 % (0.0-4.3); Hematocrit 41.9 % (30.3-42.9); Hemoglobin 13.4 gm/dl (10.1-14.3); Lymphocytes # (Auto) 0.4 K/mm3 (1.2-5.4); Lymphocytes % (Auto) 8.1 % (13.4-35.0); Mean Corpuscular HGB Conc 32 % (30-34); Mean Corpuscular Volume 94 fl (79-97); Monocytes # (Auto) 0.5 K/mm3 (0.0-0.8); Monocytes % (Auto) 9.3 % (0.0-7.3); Platelet Count 143 K/mm3 (140-440); Red Blood Count 4.47 M/mm3 (3.65-5.03); Red Cell Distribution Width 14.8 % (13.2-15.2)
[2021-01-10 13:03] LABS: Alanine Aminotransferase 15 units/L (7-56); Albumin 3.6 g/dL (3.9-5); BUN/Creatinine Ratio 19; Blood Urea Nitrogen 17 mg/dL (7-17); Calcium 9.3 mg/dL (8.4-10.2); Hemolysis Index 9
[2021-01-10 15:22] LABS: Creatinine,Urine 74.9 mg/dL (0.1-20.0); Protein/Creatinine Ratio,Urine 0.08
[2021-01-13 17:09] LABS: Vitamin D, 25-OH, D2 <4 ng/mL
== END 2021-01-10 12:04 | disposition home or self-care (01) ==
LOC: LAB 12:03
PROVIDERS: ATTEND Internal Medicine
DX: E55.9 Vitamin D deficiency, unspecified (principal); Z94.0 Kidney transplant status
CPT/HCPCS: 36415; 80053; 80197; 82306; 82570; 83970; 84156; 85025

== ENCOUNTER 2021-04-06 14:16 | Outpatient (CLI) | payer MEDICARE ==
[2021-04-06 15:25] LABS: Albumin 3.9 g/dL (3.9-5); Calcium 9.5 mg/dL (8.4-10.2)
[2021-04-06 15:49] LABS: Protein/Creatinine Ratio,Urine 0.06
[2021-04-06 18:13] LABS: Hemoglobin 14.1 gm/dl (10.1-14.3); Mean Corpuscular HGB Conc 31 % (30-34); Mean Corpuscular Volume 92 fl (79-97); Platelet Count 147 K/mm3 (140-440); Red Blood Count 4.99 M/mm3 (3.65-5.03); Red Cell Distribution Width 14.3 % (13.2-15.2)
[2021-04-06 18:14] LABS: Basophils % (Auto) 1.8 % (0.0-1.8); Eosinophils % (Auto) 0.6 % (0.0-4.3); Lymphocytes % (Auto) 20.6 % (13.4-35.0); Monocytes % (Auto) 14.1 % (0.0-7.3)
[2021-04-06 18:15] LABS: Basophils # (Auto) 0.1 K/mm3 (0.0-0.1); Monocytes # (Auto) 0.7 K/mm3 (0.0-0.8)
== END 2021-04-06 14:17 | disposition home or self-care (01) ==
LOC: LAB 14:16
PROVIDERS: ATTEND Internal Medicine
DX: I10 Essential (primary) hypertension (principal); E03.9 Hypothyroidism, unspecified; E78.5 Hyperlipidemia, unspecified; E55.9 Vitamin D deficiency, unspecified; M62.81 Muscle weakness (generalized); Z94.0 Kidney transplant status
CPT/HCPCS: 36415; 80053; 80197; 82570; 84156; 85025